=== PATIENT | female | born 1960 | race Caucasian/White ===

== ENCOUNTER 2019-11-20 07:07 | Day surgery (SDC) | payer OTHER ==
[~2019-11-20] VITALS: Ht 165.1 cm; Wt 94.3 kg
[2019-11-20] MEDS ORDERED: LEVOTHYROXINE175 MCG PO (07:24)
[2019-11-20] MEDS ORDERED: HYDROXYZINE HCL10 MG PO (07:25)
[2019-11-20] MEDS ORDERED: UNISOM50 MG PO (07:25)
--- NOTE | 2019-11-20 09:23 | NUR ---
11/20/19 0923 Africa Casey 0917 PT ARRIVED TO PACU ON 3L VIA NC, PT WAKES AND IS REORIENTED TO PACU AND FALLS BACK TO SLEEP. VSS. RESP EVEN AND UNLABORED. SMALL AMOUNT OF SNORING NOTED.
--- NOTE | 2019-11-20 22:30 | OR ---
[facility] [address], [place] [address] Signed DATE OF OPERATION: 11/20/2019 SURGEON: Miracle Valverde MD PREOPERATIVE DIAGNOSIS: Colon screening. POSTOPERATIVE DIAGNOSIS: Sigmoid diverticulosis. PROCEDURE: Total colonoscopy to cecum. ANESTHESIA: Intravenous sedation fentanyl 200 mcg and Versed 7 mg. INDICATION: This 59-year-old white woman is a patient Dr. Spencer Don. She is here for consideration of screening colonoscopy. She has never had colonoscopy in the past. She has no family history of colon cancer and no symptoms of bleeding, diarrhea or constipation. She understands the risks of colonoscopy including, but not limited to bleeding, infection, perforation, and other unforeseen complications. FINDINGS: The prep was good. Complete colonoscopy was undertaken to allow for visualization of the cecum and the ileocecal valve. Intubation of the cecum could not be undertaken despite efforts to do so. A long and poorly fixed colon is noted. There were numerous diverticula of the sigmoid colon. No sign of stricture. There were no polyps. No colitis. DESCRIPTION OF PROCEDURE: The patient was brought to the endoscopy suite and placed in lateral decubitus position, given intravenous sedation to the point of slurred speech and nystagmus. Digital rectal examination was normal. An Olympus video colonoscope was passed in the rectum and manipulated into the sigmoid where numerous diverticuli were seen. The scope was then advanced further ultimately to the right colon. Various maneuvers were required to advance further to allow for visualization of the cecum and ileocecal valve which was accomplished, but intubation of the cecum could not be undertaken despite various maneuvers including abdominal wall stabilization, body position change to supine and so on. Once the ileocecal valve and Electronically Signed By: MIRACLE VALVERDE MD 11/20/19 8070 PATIENT NAME: GALLITO VAZQUEZ V OPERATIVE REPORT DATE OF : 64 REPORT #: [id number] PHYSICIAN: MIRACLE VALVERDE MD PCP: SPENCER DON MD REPORT IS CONFIDENTIAL AND NOT TO BE RELEASED WITHOUT AUTHORIZATION [facility] [address], [place] [address] Signed cecum was visualized and photographed, the scope was then carefully withdrawn. Examination throughout showed no sign of polyps, only diverticular changes of the sigmoid. Retroflexed view of the rectum was normal. Scope was removed. The patient was taken to the recovery room in good condition. CONCLUDING DIAGNOSIS: Diverticulosis. No sign of polyp. PLAN: Recommend high-fiber diet. Repeat colonoscopy recommended in 10 years sooner if clinically indicated. She will return to the ongoing care of Dr. Don. MD JUSTINE Roberts/BETO /[id number] cc: Spencer Don MD Copies: SPENCER DON MD ~ Electronically Signed By: MIRACLE VALVERDE MD 11/20/19 2230 PATIENT NAME: GALLITO VAZQUEZ V OPERATIVE REPORT DATE OF : 64 REPORT #: [id number] PHYSICIAN: MIRACLE VALVERDE MD PCP: SPENCER DON MD REPORT IS CONFIDENTIAL AND NOT TO BE RELEASED WITHOUT AUTHORIZATION
== END 2019-11-20 10:07 | disposition home or self-care (01) ==
LOC: OPS 07:07 → DS 07:07 → OPS 08:30
PROVIDERS: Surgery
PROC: 0DJD8ZZ Inspection of Lower Intestinal Tract, Via Natural or Artificial Opening Endoscopic (ICD-10-PCS; principal; 2019-11-20 08:30)
DX: Z12.11 Encounter for screening for malignant neoplasm of colon (principal); K57.30 Diverticulosis of large intestine without perforation or abscess without bleeding; E03.9 Hypothyroidism, unspecified; E66.01 Morbid (severe) obesity due to excess calories; Z79.899 Other long term (current) drug therapy; Z90.49 Acquired absence of other specified parts of digestive tract; Z68.34 Body mass index [BMI] 34.0-34.9, adult
CPT/HCPCS: 99153; G0500; J2250; J3010

== ENCOUNTER 2021-01-23 15:48 | Inpatient (IN) | payer OTHER ==
[~2021-01-23] VITALS: Ht 165.1 cm; Wt 88.8 kg
[~2021-01-23 15:48] MED LIST: HYDROXYZINE HCL10 MG PO; LEVOTHYROXINE175 MCG PO; MOTRIN IB200 MG PO; MULTI-VITAMIN1 EACH PO; UNISOM50 MG PO
--- OUTSIDE RECORDS SUMMARY | 2021-01-23 15:50 | XMS ---
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 ELaxmi VISIT COUNT (12 MO.) 1 CHERELLE Thornton TOTAL 1 NOTE: Visits indicate total known visits. ED/UCC VISIT TRACKING (12 MO.) 01/23/2021 15:48 CHERELLE Pinedo OR TYPE: Emergency COMPLAINT: - FEVER,DIFFICULTY BREATHING INPATIENT VISIT TRACKING (12 MO.) No inpatient visits to display in this time frame [email or web address]
--- NOTE | 2021-01-23 21:10 | NUR ---
1999 PT ARRIVED TO FLOOR VIA STRETCHER. PT AMBULATES TO BED WITH SBA. PT IS ON 2L NC SPO2 90-92%. PT HAS AN INCREASED WOB, REPORTS PAIN "ALL OVER" AND SAYS SHE HAS "NEVER FELT SO BAD IN MY ENTIRE LIFE". PT APPEARS ANXIOUS AND OVERWHELMED WITH DIAGNOSIS/CONDITION. ORAL TEMP 102.1F, SPO2 STATED ABOVE, VSS OTHERWISE WNL. FEVER REPORTED TO DR OATES. 650MG PO TYLENOL IN ADDITION TO 400MG MOTRIN PRN ADMINISTERED FOR FEVER AND PAIN 02/07. IVF INFUSING PER ORDERS ALONG WITH POTASSIUM RIDER. DECADRON IV ADMINISTERED PER ORDERS. PT BEGINS TO CALM THEN ASKS TO USE BSC. O2 SAT DROPS TO 86% ON 2L WITH MOVEMENT. AFTER VOID, PT RETURNED TO BED AND O2 INCREASED TO 5L NC THEN TITRATED DOWN TO 3L NC PT RECOVERED. SPO2 94% ON 3L. BLOOD CULTURES ORDERED D/T FEVER DRAWN AT 2054 AND 2100 IN L AC AND L HAND. PT GIVEN CALL LIGHT, BSC PLACED NEAR BED, PT ORIENTED TO ROOM AND UPDATED ON POC. PT IS THANKFUL AND CALM AT THIS TIME. BEDSIDE TABLE WITHIN REACH. WILL CONTINUE TO MONITOR
--- NOTE | 2021-01-23 22:05 | NUR ---
CALL IN TO DR OATES. PT REPORTS BACK PAIN OF 01/07; HAVE TRIED ALL PRN MEDS AVAILABLE ALREADY. NEW ORDER FOR PO OXYCODONE 5-10MG Q 4H OBTAINED AND VERBALLY REPEATED AND VERIFIED.
--- NOTE | 2021-01-23 23:48 | NUR ---
IN ROOM TO START A 2ND IV TO ADMINISTER REMDESIVIR AND MAG ONE AFTER THE OTHER SINCE OTHER IV IS OCCUPIED WITH K RIDERS. LACTIC ACID KENRICK PER ORDER THRU NEW IV SITE. 5MG PO OXYCODONE ADMINISTERED FOR 7/10 BACK AND FOREHEAD PAIN. PT IS VISIBLY UNCOMFORTABLE D/T BACK PAIN. SCHEDULED MEDS ALSO ADMINISTERED AT THIS TIME. PT REMAINS ON 3L NC SPO2 92%. WILL CONTINUE TO MONITOR
--- NOTE | 2021-01-24 00:46 | NUR ---
IN ROOM TO HANG IV MEDS. PT RESTING IN BED, EYES CLOSED, EVEN UNLABORED BREATHING. SPO2 93% 3L NC, HR 67. NO OTHER NEEDS AT THIS TIME. CALL LIGHT WITHIN REACH
--- NOTE | 2021-01-24 07:00 | NUR ---
[facility] DOWN BETWEEN 0100 AND 0600. SEE PAPER CHART.
--- NOTE | 2021-01-24 08:28 | NUR ---
got breakfast order. gave warm washcloth to wash pt's face. whiteboard updated. pt reported nausea, notified RN Chary, gave emisis bag. IV pump was beeping, notified RN Chary. Call light was within reach. No further assistance needed at this time.
--- NOTE | 2021-01-24 08:45 | NUR ---
IN ROOM TO SEE PT. O2 SATS 87 ON 5L NC. PT HAD JUST TURNED OVER FROM PRONING. EDUCATED ON MEDS. ENCOURAGED PT TO US IS, STATES SHE DOES NOT WANT TO YET SHE JUST GOT DONE WITH A COUGHING "FIT". TRIED USING AN OXY MASK WITH SIDE LAYING. TURNED UP TO 10-12 WITH NO IMPROVEMENT. PT THEN ASKED TO GO BACK TO NASAL CANNULA. 6LNC SATS AT 87. UP TO BEDSIDE COMMODE AFTER COUGHING WITH DRIBBLING. U\\O QS. SATS QUICKLY DROPPED TO 77. PT NAUSEOUS AND COUGHING. BACK TO BED, SIDE LYING WITH 6LNC TOOK SEVERAL MINUTES TO RECOVER TO 87%. SPOKE WITH DR OATES AND MOVED TO CCU.
--- NOTE | 2021-01-24 09:10 | NUR ---
Pt transferred to CCU for decrease in condition. Will contact family for assessment questions.
--- NOTE | 2021-01-24 09:24 | NUR ---
PATIENT MOVED FROM 117 TO ROOM 127 AT 0900. VERBAL REPORT REC'D FROM LISA. PT ON 8 L NC WHEN THIS RN RESUMES CARE. PATIENT DOES NOT APPEAR SHORT OF BREATH AND IS LAYING ON RIGHT SIDE. PT STATES SHE NORMALLY SLEEPS ON HER STOMACH IS ABLE TO PRONE WELL. LUNG SOUNDS REVEAL FINE CRACKLES THROUGHOUT POSTERIOR LUNG LARIOS. DISCUSSED WITH PATIENT ATELECTASIS AND THE NEED FOR HER TO TAKE DEEPER BREATHS. PT HELPED TO USE IS, AND WITH 3 ATTEMPTS OF IS, ALL PRODUCED A SIGNIFICANT COUGH AND SPUTUM PRODUCTION. PT HELPED TO GET INTO PRONE POSITION AND IS NOW 92% ON 8L. RT UPDATED AND IS GOING INTO ROOM TO SET UP VAPOTHERM.
--- NOTE | 2021-01-24 10:15 | NUR ---
PATIENT GIVEN ZOFRAN FOR NAUSEA. RT IN ROOM AND SETS UP ON VAPOTHERM AT 30 L AND 100%. PATIENT ALSO GETS NEB TX FROM RT. PT STILL HAVING PRODUCTIVE SPUTUM WITH EACH COUGH. USES IS AGAIN X3 AND UP TO 1000 ML THIS TIME. BACK TO PRONE POSITION. SP02 IS 93% AT THIS TIME ON 100% 30 L. PT NOTES THAT EACH TIME SHE COUGHS, SHE IS VOIDING SOME WITHOUT ABILITY TO CONTROL THIS. PT HAS A PAD IN HER ATTENDS.
--- NOTE | 2021-01-24 11:54 | NUR ---
Attempted to contact Alyse Blackburn at work and on cell. Unable to contact, will try again later.
--- NOTE | 2021-01-24 13:55 | NUR ---
PATIENT CONTINUES TO REST ON RIGHT SIDE AND SP02 IS 95% AT THIS TIME. CONTINUE TO MONITOR.
--- NOTE | 2021-01-24 15:53 | NUR ---
IN PATIENT'S ROOM FOR ASSESSMENT, MEDS AND VITALS. PT HELPED TO GET UP FROM PRONE POSITION INTO SITTING UP. PT USES IS WITH BEST EFFORT BEING A LITTLE OVER 750 AT THIS TIME. NEW IV TO BE STARTED THAT ISN'T IN PATIENTS AC. IV REMDESEVIR INFUSING. PT STARTING TO COUGH UP BLOODY TINGED SPUTUM. EVERYTIME PATIENT COUGHS, SHE PRODUCES SOME SPUTUM. SPUTUM SAMPLE SENT EARLIER TODAY. PT REPORTS THAT HER BREATHING STILL FEELS LABORED BUT BETTER COMPARED TO YESTERDAY. PT NOW SITTING UP EATING SOME YOGURT AND BERRIES. PT STILL HAVING SOME INCONTINENCE WITH COUGHING WELL.
--- NOTE | 2021-01-24 16:47 | NUR ---
Pt lives in 1 story ranch with her spouse who is also covid +. 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 Pt denies needs for home. Discussed she may need o2 on dc, but this will be determined on dc. Her preference for DME is [facility] from [facility]. She states her adult son has been assisting them as she tested + a week ago. Denies financial issues to this time, but is unsure as both she and spouse are off work. We discussed FMLA and she staes she does have vacation time she can take. States she is just concerned as they have both been very ill. Plans on dc to home when cleared medically. She was contacted by the health dept. Will fu with pt as needed and prior to dc.
--- NOTE | 2021-01-24 17:36 | NUR ---
PATIENT UP TO BEDSIDE COMMODE AND JUST REC'D NEB TX FROM RT. PT REPORTS THAT SHE FEELS LIKE SHE CAN TAKE DEEPER BREATHS NOW. STILL HAVING PRODUCTION TO HER COUGH, BUT WAS NOW ABLE TO GET THE IS UP TO 1250 ML, WHICH IS THE HIGHEST FOR THE DAY FOR HER. PT NOW SIDE LAYING ON LEFT SIDE. NEW ATTENDS PLACED ON PATIENT. WHILE SIDE LYING, 92-95% OXYGEN NOTED. CONTINUE TO MONITOR.
--- NOTE | 2021-01-24 19:30 | NUR ---
[facility] ON. pt REQUESTED ASSISTED TO PRONE. UP TO VOID FIRST, BSC. pt DESATS WITH ANY MOVEMENT. CALL LIGHT WITHIN REACH.
--- NOTE | 2021-01-24 20:30 | NUR ---
pt BACK TO BED. MEDICATIONS GIVEN (SEE MAR). ASSESSMENT DONE. pt HAD LARGE VOID. PM CARES DONE. pt DID IS WITH LOTS OF COUGHING. REPORTED "I REALLY GOT A LOT UP" ASSISTED TO PRONE. RT IN ROOM DOING ASSESSMENT. DISCUSSED MOVING TO CPAP/BiPAP. pt PRONED IN BED. CALL LIGHT WITHIN REACH.
--- NOTE | 2021-01-24 22:00 | NUR ---
ROUNDED ON pt. RESTING IN BED ON RIGHT SIDE. REPORTED THAT BiPAP WAS MORE COMFORTABLE. BLOOD PRESSURE TAKEN. BACK ON BiPAP SATS INCREASED QUICKLY TO MID 90'S. CALL LIGHT WITHIN REACH.
--- NOTE | 2021-01-24 22:44 | NUR ---
CALL LIGHT ON. pt REQUESTED ROOM TEMPERATURE CHANGE, DONE. NO FURTHER REQUESTS AT THIS TIME. REMAINS ON BiPAP. CALL LIGHT WITHIN REACH.
--- NOTE | 2021-01-24 22:59 | NUR ---
ROUNDED ON pt. RESTING ON LEFT SIDE. RESPIRATIONS REGULAR. CALL LIGHT WITHIN REACH.
--- NOTE | 2021-01-24 23:52 | NUR ---
CALL LIGHT ON. pt OFF BiPAP AND ON VAPOTHERM 35/100% TO EAT. SITTING UP IN BED. CALL LIGHT WITHIN REACH.
--- NOTE | 2021-01-25 00:02 | NUR ---
02 SAT REMAINS IN 80'S. TITRATED TO 40/100% VAPOTHERM. pt DENIES SOB AT THIS TIME. SITTING UPRIGHT IN BED EATING. CALL LIGHT WITHIN REACH.
--- NOTE | 2021-01-25 01:07 | NUR ---
ANSWERED CALL LIGHT WITH LINDA RN. PATIENT WAS ONLY ABLE TO EAT 2 BITES OF HER SANDWICH, STATED IT "TAKES TOO MUCH ENERGY TO EAT" PATIENT HAS VOIDED 350 ML OF URINE IN BEDSIDE COMMODE. PATIENT WAS ABLE TO WIPE AND CLEAN SELF, PATIENT INSISTED SHE "DO MUCH I CAN ON MY OWN" PATIENT PLACED NEW PERIPAD TO ATTEND AND WAS ASSITED TO A STANDING POSITION, ATTENDS PULLED UP. PATIENT WAS ABLE TO GET BACK INTO STRETCHER WITH THIS RN STANDBY ASSIST TO HOLD CORDS AND OXYGEN TUBING. PATIENT ALSO GIVEN 650 MG TYLENOL FOR HER HEADACHE, PLACED BACK ON BIPAP. CALL LIGHT IN REACH.
--- NOTE | 2021-01-25 04:06 | NUR ---
IN ROOM TO ANSWER PATIENT'S CALL LIGHT. PATIENT REPORTS "SOMETHING FELL OFF" REFERRING TO THE TUBING CONNCETION TO BIPAP MASK. THIS RN ASSESSED THE BIPAP STILL FUNCTIONING, ERICK GARZA CALLED IN TO ROOM AND ALSO ASSESSES BIPAP CONNECTION AND ASSURED PATIENT. PATIENT STATES "I DON'T WANT TO THIS THING IS HELPING ME I DON'T WANT IT FALLING APART." ASKED PATIENT HOW HER HEADACHE IS SHE GIVES A "THUMBS UP" DENIES OTHER NEEDS AT THIS TIME. OBTAINED VITALS AND ASSESSMENT.
--- NOTE | 2021-01-25 05:37 | NUR ---
IN ROOM TO DRAW MORNING LABS AND GIVE MORNING MED, SEE EMAR. BLOOD COLLECTED FROM LEFT ARM AND SENT TO LAB. PATIENT CONTINUES SITTING UPRIGHT, BIPAP ON TO MAINTAIN SATS, DENIES OTHER NEEDS. CALL LIGHT IN REACH.
--- NOTE | 2021-01-25 07:36 | NUR ---
REPORT RECEIVED FROM NIGHTSHIFT RN, WILL CONTINUE PLAN OF CARE.
--- NOTE | 2021-01-25 08:30 | NUR ---
THIS RN IN TO ASSESS PT AND ADMINISTER SCHEDULED MEDICATIONS. PT SITTING UP IN BED AT THIS TIME ALERT AND ORIENTED X3 ON THE BIPAP AT 100% FIO2. SPO2 AT 95-100%. PT REPORTS NO SOB AT THIS TIME WHEN ASKED AND STATES HER BREATHING HAS IMPROVED. SCHEDULED MEDICATIONS ADMINISTERED (SEE MAR). PT VITALS TAKEN AND PT ASSESSED. LUNGS COARSE THROUGHOUT WITH SOME WHEEZES PRESENT. PT WAS PUT ON VAPOTHERM MOMENTARILY ON 40LPM AND 100% FIO2 TO DRINK WATER. AFTER SOME COUGHING PT DESATED AND MAINTAINED AN SPO2 OF 88%, PT PUT BACK ON THE BIPAP. RT ENTERED ROOM TO ASSESS PT, FIO2 ON BIPAP DECREASED TO 60% AT THIS TIME BY RT. PT REPORTS NO FURTHER NEEDS AT THIS TIME WHEN ASKED, BREAKFAST AT BEDSIDE FOR PT. PT LAYING IN BED ON BIPAP, RT IN ROOM, CALL LIGHT IN REACH, WILL CONTINUE PLAN OF CARE.
--- NOTE | 2021-01-25 09:30 | NUR ---
DOING WELL ON BIPAP.
--- NOTE | 2021-01-25 12:10 | NUR ---
UP TO COMMODE THEN TO PRONE POSITION. IS ON HIGH FLOW O2 AT 15 LITERS. UPON PRONING O2 SAT 77, AFTER RESTING APPROX 5 MIN O2 SAT TO 90.
--- NOTE | 2021-01-25 13:30 | NUR ---
SITTING UP IN BED ATTEMPING TO TAKE ENSURE.
--- NOTE | 2021-01-25 14:06 | NUR ---
BACK ON BIPAP.04/05 60% FIO2.
--- NOTE | 2021-01-25 15:16 | NUR ---
No change in plan for dc.
--- NOTE | 2021-01-25 16:45 | NUR ---
ASSESSMENT DONE. REMDESDIXON HUNG. O2 TO HIGH FLOW AT 15 L PER PT REQUEST NEED TO TRANSFER TO COMMODE. UPON SITTING AT BEDSIDE FOR APPROX 5 MIN PRIOR TO TRANSFER, O2 SAT TO 77, SAT NOT COMING UP WHILE SITTING AT BEDSIDE BIPAP REAPPILED AND FIO2 INCREASED TO 100%.
--- NOTE | 2021-01-25 17:00 | NUR ---
BACK TO BED WITH ASSIST. RESP THERAPY HERE TO WORK WITH PATIENT. COUGH MEDICATION GIVEN.
--- NOTE | 2021-01-25 18:03 | NUR ---
THIS RN IN TO SALINE LOCK PT. PT LAYING IN BED ON BIPAP AT THIS TIME AWAKE AND ALERT. IV REMDESEVIR COMPLETE, PT SALINE LOCKED. PT REPORTS NO FURTHER NEEDS AT THIS TIME WHEN ASKED. CALL LIGHT IN REACH, BED IN LOWEST POSITION, WILL CONTINUE PLAN OF CARE.
--- NOTE | 2021-01-25 19:30 | NUR ---
RECEIVED REPORT FROM [facility]. PATIENT APPEARS TO BE RESTING COMFORTABLY SITTING UPRIGHT ON STRETCHER ON BIPAP, PATIENT DENIES NEEDS AT THIS TIME. PATIENT INFORMED THIS NURSE WILL BE IN TO DO AN ASSESSMENT. CALL LIGHT IN REACH.
--- NOTE | 2021-01-25 21:08 | NUR ---
IN ROOM TO ADMINISTER PATIENT'S NIGHT TIME MEDS, SEE EMAR. PATIENT ASKED TO USE COMMODE TO VOID, INSISTS TO KEEP BIPAP ON. COMMODE PLACED TO PATIENT'S LEFT SIDE AND ASSISTED PATIENT WITH STANDBY ASSIST HOLDING LEADS AND BIPAP TUBING FOR PATIENT. SHE IS ABLE TO GET ON COMMODE BY SELF AND VOID AND WIPE BY SELF.PATIENT VOIDED 250 ML URINE. PATIENT REQUESTED TO HAVE BIPAP OFF MOMENTARILY TO COUGH, HAD 3-4 GOOD PRODUCTIVE COUGHS WITH "GRAYISH" SPUTUM AND TOSWALLOW HER NIGHT TIME MEDS. BIPAP PLACED BACK ON PATIENT AND SHE WAS ASSISTED BACK TO BED WITH BIPAP ON. MAINTAINING SATS IN THE 90'S. SHE DENIES ANY OTHR NEEDS, CALL LIGHT IN REACH.
--- NOTE | 2021-01-25 21:20 | NUR ---
NANCY FROM RT HAS BEEN IN TO DO RESPIRATORY ASSESSMENT. REPORTS FIO2 CHANGED TO 70 AT THIS TIME ON BIPAP.
--- NOTE | 2021-01-25 22:01 | NUR ---
PATIENT DOCUMENT CONTROL SUPERVISOR LIGHT, PATIENT DID NOT MEAN TO PUSH CALL LIGHT, DENIES NEEDING ANYTHING.
--- NOTE | 2021-01-25 23:00 | NUR ---
CHECKED ON PATIENT, SHE IS RESTING COMFORTABLY ON STRETCHER WITH BIPAP REMAINING ON PATIENT. PATIENT DENIES ANY NEEDS AT THIS TIME, DENIES PAIN. CALL LIGHT IN REACH. INFORMED PATIENT THIS RN WILL BE IN TO DO HER ASESSMENT AROUND MIDNIGHT.
--- NOTE | 2021-01-26 00:25 | NUR ---
IN ROOM TO DO ASSESSMENT. PATIENT APPEARED TO BE SLEEPING PRIOR TO RN COMING IN BUT SHE WAKES EASILY TO VOICE. REMAINS ON BIPAP FIO2 70% PER RT. PATIENT IS REPORTING "LITTLE BIT" OF NAUSEA DURING ASSESSMENT, DENIES ABDOMINAL PAIN, RPEORTING SHE JUST "DOESN'T FEEL LIKE EATING" PATIENT HAS BEEN SIPPING WATER. PATIENT DENIES ANY PAIN ANYWHERE AT THIS TIME. ZOFRAN 4MG IV GIVEN PER PRN ORDER FOR NAUSEA. PATIENT DENIES OTHER NEEDS. DENIES NEED TO VOID. CALL LIGHT IN REACH. HAS BEEN USING CONTROLS ON BED TO MOVE HEAD OF BED UP AND DOWN NEEDED. PATIENT REQUESTED WARM BLANKET AT THIS TIME STATES SHE IS "COLD" WARM BLANKET APPLIED.
--- NOTE | 2021-01-26 01:33 | NUR ---
PATIENT APPEARS TO BE SLEEPING, BIPAP ON MAINTAING SATS IN THE 90'S CALL LIGHT IN REACH.
--- NOTE | 2021-01-26 02:50 | NUR ---
CHECKED ON PATIENT. SHE IS REPORTING THAT SHE IS HAVING "BURNING" IN HER STOMACH AND IS ASKING FOR "SOMETHING FOR ACID REFLUX" INITIATED MEDICATION NIO FOR MAALOX CONFIRMED WITH LINDA LEY
--- NOTE | 2021-01-26 03:14 | NUR ---
THIS RN WAS IN ROOM TO MEDICATE PATIENT WITH MAALOX, PATIENT ASKS IF SHE CAN "TAKE A BREAK" FROM THE BIPAP "I NEED TO GIVE MY FACE A REST. INSTRUCTED PATIENT WE CAN PUT HER ON THE HIGH FLOW O2 PER NASAL CANNULA FOR A LITTLE BIT, HER SATS ONLY STAY IN THE HIGH 80'S RR WNL.
--- NOTE | 2021-01-26 03:36 | NUR ---
THIS RN IN ROOM TO PUT BIPAP BACK ON PATIENT. PATIENT INFORMED THAT HER SATS ON THE HIGH FLOW O2 WERE ONLY STAYING IN THE HIGH 80'S AND EXPLAINED TO HER THAT HER OXYGEN SATURATION IS MAINTAINED WITH BIPAP, PATIENT VERBALIZED UNDERSTANDING. PATIENT ALSO NEEDED TO VOID SO ASSISTED PATIENT TO BEDSIDE COMMODE BY HOLDING TUBES AND WIRES FOR PATIENT SHE WAS ABLE TO STAND UP AND TRANSFER SELF TO BEDSIDE COMMODE AND WIPE SELF. ASSISTED PATIENT BACK TO THE BED. SHE ALSO INFORMED THIS RN SHE USED HER INCENTIVE SPIROMETER 3 TIMES WHILE OFF BIPAP AND COUGHED SEVERAL TIMES AND ABLE TO COUGH "GRAYISH" SPUTUM. WILL BE BACK IN TO OBTAIN VITALS AND ASSESSMENT
--- NOTE | 2021-01-26 04:20 | NUR ---
IN ROOM TO CHECK ON PATIENT AND DO OBTAIN VITALS AND ASSESSMENT. PATIENT REMAINS ON BIPAP PATIENT DECLINES OFFER FOR WARM BLANKET.CALL LIGHT IN REACH. FIO2 70% ON BIPAP.
--- NOTE | 2021-01-26 05:35 | NUR ---
IN ROOM TO CHECK ON PATIENT AND TO GIVE MORNING MED, SEE EMAR. MORNING LAB DRAW BEING COMPLETED. PATIENT GIVEN WATER TO DRINK AND BRIEFLY TAKEN OFF BIPAP TO SWALLOW PILL. DENIES ANY PAIN AT THIS TIME. DECLINES OFFER FOR WARM BLANKET. DINA LIGHT IN REACH.
--- NOTE | 2021-01-26 06:31 | NUR ---
ANSWERED PATIENT'S CALL LIGHT. SHE IS REQUESTING A WET WASHCLOTH STATES SHE FEELS "HOT" PATIENT REMAINS ON BIPAP, HAD PATIENT TAKE SOME MORE SIPS OF WATER, HER NAUSEA HAS IMPROVED. ENCOURAGED PATIENT TO STAY HYDRATED ESPECIALLY BEING ON BIPAP AND SHE STATES SHE "FEELS LIKE I AM DRYING OUT" PATIENT CONTINUES TO DENY PAIN, DENIES NEEDING TO VOID. CALL LIGHT IN REACH
--- NOTE | 2021-01-26 12:00 | NUR ---
No change in plan for dc, remains on high flow 02.
--- NOTE | 2021-01-26 18:00 | NUR ---
PT HAS REMAINED ALERT AND ORIENTED X4 ALL SHIFT. PT IS A ONE PERSON ASSIST UP TO THE BSC MOSTLY FOR CORD MANAGEMENT. PT HAS ATTEMPTED TO EAT BITES AT BOTH BREAKFAST AND LUNCH, REFUSES DINNER. PT HAS BEEN REQUESTING TO STAY UP ON COUGH MEDICINE AND NAUSEA MEDS. PT HAS ALSO REPORTED INCREASED GENERALIZED ACHES AND PAIN, PRN PAIN MEDICATION GIVEN REGULARLY. ALL LINENS CHANGED ON BED, PT REFUSED BED BATH TODAY, HOWEVER HAS BRUSHED HER TEETH AND WASHED HER HANDS AND FACE. PT ASKS GOOD QUESTIONS ABOUT HER PLAN OF CARE, AND SEEMS TO UNDERSTAND. PT HAS BEEN ON BIPAP FOR MOST OF THE DAY AND TAKES ONE HOUR BREAKS AT MEAL TIMES. PT USES CALL LIGHT APPROPRIATLY. ALL OTHER VITALS HAVE BEEN WNL, EXCEPT FOR O2 SATS 87-89% WHILE ON 15L O2 HIGHFLOW NC. BILAT IV SITES ARE INTACT ALL SHIFT, FLUSH EASILY, NO REDNESS OR SWELLING NOTED, PT DENIES PAIN AT EITHER SITE. UPDATED PT'S SISTER MARLINE ON THE PHONE PER PT'S WISHES. PT REPORTS "I FEEL A LITTLE STRONGER TODAY THAN WHEN I FIRST CAME IN".
--- NOTE | 2021-01-26 19:09 | NUR ---
PT HAS BEEN ALERT AND ORIENTED X4 ALL SHIFT, COOPERATIVE AND POLITE. PT WAS IN BED UNTIL ABOUT 1530, AND THEN HAS BEEN UP IN THE CHAIR FOR THE REST OF THE SHIFT. ALL LINENS CHANGED, PARTIAL BEDBATH DONE, PT BRUSHES OWN TEETH. PT APPITITE HAS INCREASED THROUGH THE SHIFT, GOOD PO INTAKE OF FLUIDS. BILAT IV SITES HAVE REMAINED INTACT, NO PAIN WITH FLUSH, NO REDNESS OR SWELLING NOTED, FLUIDS AND FLUSHES INFUSE EASILY. PT HAS BEEN PRONING MULTIPLE TIMES ON HER BELLY AND ON HER SIDES WHILE IN BED. PT GIVEN GIVEN PRN COUGHT MEDS AND ANTIEMETICS ALL SHIFT PER PT REQUEST. PT ABLE TO BE TITRATED DOWN ON THE VAPOTHERM FROM 40L/100% TO 40L/70-80%. TRIAL WITH BIPAP DONE PER REQUEST (PLEASE REFER TO RT NOTES). VITALS HAVE BEEN WNL ALL SIFT.
--- NOTE | 2021-01-26 20:00 | NUR ---
ASSISTED PATIENT TO THE BSC. BIPAP WITH 70% Fi02 LEFT IN PLACE. PATIENT TRANSFERED EASILY. RETURNED TO BED. O2 SAT 67% RR 32. PATIENT FEELS FLUSHED AND HOT. ICE PACK AND COOL WASH CLOTH PROVIDED. TITRATED TO 100% Fi02 ON BIPAP. PATIENT RECOVERED AFTER SEVERAL MINS. PATIENT REPORTS STOMACH ACID/INDIGESTION. MAALOX PROVIDED. DISCUSSED WITH MD, MARIELY ORDERED. PATIENT REPORTS GENERAL PAIN 4/10. LUNG SOUNDS ARE DIM THORUGHOUT. DISCUSSED NEB TREATMENT, PATIENT REPORTS THE LAST ONE SHE HAD SEEMED TO HELP. RT CALLED FOR IN-LINE TREATMENT. PATIENT RESTING HOB AT 45 DEGREES. CALL LIGHT IN REACH.
--- NOTE | 2021-01-26 22:15 | NUR ---
EVENING MEDS PROVIDED. PATIENT ON 15L HIGH FLOW O2 FOR PO MEDS, DESAT TO 84% WITH RR28. PATIENT REPORTS FEELING THAT HER BREATHING IS "GOOD" RIGHT NOW. DISCUSSED OPTION FOR AL PLACEMENT. PATIENT IS IN AGREEMENT WITH THIS TREATMENT PLAN. BIPAP BACK IN PLACE. TITRATED TO 100%. PATIENT TOLERATED AL PLACEMENT WELL. GOOD URINE OUTPUT. TITRATED BACK TO 90% Fi02. BIPAP PRESSURE 12/8.
--- NOTE | 2021-01-27 00:45 | NUR ---
PATIENT SLEEPING. WOKE WHEN NURSE WAS IN THE ROOM. AL DRAINING WELL. BIPAP REMOVED BRIEFLY FOR PATIENT TO DRINK WATER. PATIENT REPORTS SLEEPING WELL AND HAVING NO DISCOMFORT FROM THE AL. PATIENT STATES "I'M REALLY HAPPY I HAVE THAT NOW". PATIENT DENIED FURTHER NEEDS. BIPAP IN PLACE. VS STABLE. O2 SAT 94% ON 90% Fi02.
--- NOTE | 2021-01-27 04:53 | NUR ---
PATIENT AWAKE WHEN RN ENTERS THE ROOM. TOLERATING BIPAP WELL. RR 24-26, O2 SAT 96% ON 90% Fi02 PRESSURE 12/8. PATIENT REPORTS FEELING RESTED. DENIED PAIN OR GI UPSET. AL HAS GOOD URINE OUTPUT. LABS DRAWN FROM IV IN LEFT AC SITE. PATIENT DENIED ANY NEEDS AT THIS TIME. CALL LIGHT IN REACH.
--- NOTE | 2021-01-27 06:12 | NUR ---
assisted patient to roll to left side from her right. RR 22-24, OR SAT 99% AFTER ACTIVITY. TITRATED Fi02 TO 80%. AL EMPTIED. LABS REDRAWN, 5ML WASTED OUT OF RIGHT AC. PATIENT DENIED ANY NEEDS. CALL LIGHT IN REACH.
--- NOTE | 2021-01-27 07:55 | NUR ---
PT SLEEPING SOUNDLY AT THIS TIME, VITALS WNL, BIPAP IN PLACE. FULL REPORT RECIEVED FROM SHARA LEY.
--- NOTE | 2021-01-27 09:05 | NUR ---
PT IS ALERT AND ORIENTED X4 AT THIS TIME. PT REPORTS ANXIETY WITH DIAGNOSIS AND LACK OF POSITIVE ENCOURAGEMENT FROM FISHING BOAT MATE RT. PT NOT ARNEL BEING OFF THE BIPAP WELL SHE WAS YESTERDAY. BOTH IV SITES ARE INTACT, NO REDNESS OR SWELLING NOTED, PT DENIES PAIN WITH FLUSH. PT IS WILLING TO DRINK ENSURE FOR BREAKFAST. PT GIVEN WARM WASHCLOTH TO WASH FACE AND HANDS. FRESH ICE WATER TAKEN IN TO PT. PT PLACED BACK ON TO BIPAP AT 0930. ALL OTHER VITALS ARE WNL.
--- NOTE | 2021-01-27 12:36 | NUR ---
PT IS COUGHING AND EXPECTORATING LARGE AMOUNTS OF THICK WILKINS PHLEM. PT ASSISTED TO TAKE OF BIPAP AND PLACED ON 15L HIGHFLOW NC. PT ALSO HAS ORDERED ENSURE FOR LUNCH AND IS ABLE TO ARNEL SIPS OF THIS WELL. PT VITALS ARE WNL, HOWEVER NOTED THAT PT IS NOT ABLE TO KEEP O2 SATURATION AT 88% WITH NC, SHE IS AT 83-87%. CALLED RT TO GIVE A NEB TREATMENT. PT IS ABLE TO BRUSH OWN TEETH WHEN GIVEN SUPPLIES. PT HAS CALL LIGHT WITHIN REACH.
--- NOTE | 2021-01-27 16:23 | NUR ---
NO CHANGES OR UPDATE ON DISCHARGE PLAN. PATIENT REMAINS TO ILL TO LEAVE ICU.
--- NOTE | 2021-01-27 17:00 | NUR ---
PT IS ALERT AND ORIENTED X4. OFF BIPAP FOR A REST AND TO TAKE PO MEDS AND ON 15L HIGHFLOW NC. WITH THIS METHOD OF OXYGEN DELIVERY PT IS ONLY ABLE TO SAT 80-85%. BECAUSE OF THIS BREAKS ARE SHORTER. PT GIVEN PO PAIN MEDS FOR GENERALIZED/BACK/RIB PAIN OF 6/10. BILAT IV SITES ARE INTACT, NO REDNESS OR SWELLING NOTED, FLUSHES AND FLUIDS INFUSE EASILY. PT REQUESTS AND IS GIVEN ZOFRAN FOR SLIGHT NAUSEA. FULL BEDBATH DONE INCLUDING AL CATH CARES, LINENS CHANGED. PT'S SKIN IS INTACT.
--- NOTE | 2021-01-27 19:59 | NUR ---
Patient o2 sats 86% on bipap with 80% Fi02. instructed to have patient turn to right side. After several mins patient is 88%. RR 27. Titrated Fi02 to 90%. patient reports being comfortable and denies any needs. call light in reach.
--- NOTE | 2021-01-27 21:00 | NUR ---
PATIENT OFF BIPAP TO DRINK WATER AND TAKE MEDS. PATIENT REPORTS HEADACHE AND BACK PAIN, PRN MEDS PROVIDED. COUGH MEDS GIVE PER REQUEST. PATIENT HAS HAD SMALL AMOUNT OF SPUTUM. ACCU CHECK AND SSI PER ORDER. AL HAS GOOD URINE OUTPUT. ROOM CLEAN. VS STABLE. PATIENT DENIED FURTHER NEEDS. CALL LIGHT IN REACH.
--- NOTE | 2021-01-27 23:00 | NUR ---
PATIENT REQUEST ASSISTANCE TO REMOVE BIPAP TO BLOW HER NOSE. PATIENT HAS BEEN AT 88-90% ON BIPAP 12/8, 90% Fi02. INCREASED PRESSURE TO 16/10 WITH 90% Fi02. WILL CONTINUE TO MONITOR.
--- NOTE | 2021-01-28 01:00 | NUR ---
PATIENT'S OR SATS HAVE BEEN MID 90'S ON CURRENT SETTINGS. RR 24-26. PATIENT APEARS COMFORTABLE LAYINGON LEFT SIDE. AL DRAINING WELL. TEMP WNL. PATIENT DENIED NEEDS. CALL LIGHT IN REACH.
--- NOTE | 2021-01-28 05:00 | NUR ---
ASSISTED PATIENT TO PRONE. ABLE TO TITRATE TO 70% Fi02. PATIENT HAD ASKED FOR PRN MEDS AND THEN CHANGED HER MIND. NEB TREATMENT PROVIDED IN-LINE. AL EMPTIED. PATIENT REPORTS BEING COMFORTABLE.
--- NOTE | 2021-01-28 05:41 | NUR ---
PATIENT CALLED. LAKE RN IN ROOM TO ASSIST PATIENT. BIPAP MASK UNCOMFORTABLE. SWITCHED TO 15L NC AND PROVIDED PRN MEDS. PATIENT CONTINUES TO PRONE. OR SATS 88-91%.
--- NOTE | 2021-01-28 06:05 | NUR ---
PATIENT UNABLE TO KEEP O2 SATS ABOVE 88% ON 15L NC IN PRONE POSITION. PATIENT ASSISTED TO LAYING MORE ON HER RIGHT SIDE WITH BIPAP IN PLACE. ABLE TO TITRATE TO 70% Fi02 AND MAINTAIN GREATER THAN 90%. PATIENT REPORTS BEING COMFORTABLE.
--- NOTE | 2021-01-28 14:00 | NUR ---
pts oxygen saturations decreased into the 80's and unable to get back up on vapotherm on 40 l and 100 percent FI02. pt now back on bipap, in left side lying position. saturations currently 100% on bipap.
--- NOTE | 2021-01-28 16:18 | NUR ---
in room to complete assessment. pt taken off bipap at this time and placed on vapotherm at 40L and 100% FIO2. saturations in the mid 80s. pt continues to have a constant productive cough, with greyish colored sputum. lung sounds are diminished throughout. given prn cough suppressant medications (see emar). Provided pt education on oxygen therapy, all questions answered. call light within reach, will continue to closely monitor.
--- NOTE | 2021-01-28 19:34 | NUR ---
PT HAS BEEN ALERT AND ORIENTED X4 ALL SHIFT. PT DOES TRY TO SLEEP MUCH POSSIBLE. FOR MOST OF THE SHIFT PT HAS REQUIRED PRN PAIN MEDS, OXY, TYLENOL, AND MOTRIN. ALSO GIVEN COUGH SUPPRESANT REGULARLY. PT UO IS QS, AL IS INTACT, PT DENIES PAIN WITH AL. PT VITALS HAVE BEEN WNL EXCEPT FOR O2 SATS. THIS RN AND RT HAVE BEEN TITRATING O2 THERAPY MULTIPLE TIMES TO ATTAIN ACCEPTABLE O2 SATS. PT HAS HAD PHONE CALLS FROM FAMILY WITH FULL UPDATES GIVEN. NEW SPUTEM SAMPLE SENT, IV ABX STARTED TODAY. PT ABLE TO ARNEL MORE FOOD AT DINNER THAN THE REST OF THE SHIFT. PT CALLS APPROPRIATLY. OFFERED PO FLUIDS MULTIPLE TIMES TODAY WHEN BIPAP IS OFF, PT ON VAPOTHERM WHEN OFF BIPAP.
--- NOTE | 2021-01-28 20:22 | NUR ---
ASSISTED PATIENT TO MOVE TO PRONE POSITION WITH VAPOTHERM 40L 100% Fi02. PATIENT TOELRATING WELL. HAIR BRUSHED AND SHOWER CAP WASH DONE. PATIENT REPORTS FEELING WELL AND IS HOPEFUL TO STAY IN THIS POSITION TONIGHT. CALL LIGHT IN REACH.
--- NOTE | 2021-01-28 21:50 | NUR ---
PATIENT CONTINUES TO PRONE. O2 SAT FLUCTUATES FROM 85% TO 90% WITH VAPOTHERM AT 40L 100% Fi02. PATIENT CONTINUES TO ENJOY THIS POSITION AND FEELS THAT HER BREATHING IS EASIER. NEB PROVIDED AND PRN COUGH MEDS. SCHEDULED MEDS. WHEN PATIENT IS READY FOR SLEEP WE WILL TRANSITION TO HER SIDE AND PLACE BIPAP. CALL LIGHT IN REACH.
--- NOTE | 2021-01-28 23:25 | NUR ---
PATIENT CONTINUES TO PRONE. OR SATS 88-91% ON VAPOTHERM 40L 100% Fi02. ALLOWED PATIENT TO SLEEP. CALL LIGHT IN REACH.
--- NOTE | 2021-01-29 00:25 | NUR ---
PATIENT SWITCHED TO BIPAP AT 90% Fi02. NEB TREATMENT PROVIDED IN-LINE. PATIENT TURNED TO RIGHT SIDE. REPORTS BEING COMFORTABLE. VS STABLE. CALL LIGHT IN REACH.
--- NOTE | 2021-01-29 03:10 | NUR ---
PATIENT O2 SATS 95-97% ON BIPAP AT 90% Fi02. THIS RN ENTERED ROOM TO TITRATE Fi02 AND PATIENT REQUESTED TO TURN TO HER STOMACH IN PRONE POSITION AND WEAR VAPOTHERM. ASSISTED PATIENT WITH REPOSITIONING. VAPOTHERM 40L 100% Fi02. PATIENT DESAT WITH ACTIVITY BUT AFTER SEVERAL MINS WAS MAINTAINING O2 SATS 90%
--- NOTE | 2021-01-29 06:00 | NUR ---
PATIENT RESTING IN PRONE POSIITON. TOLERATING VAPOTHERMA 40L 100% Fi02 WITH O2 SATS 88-92%. RR 24-26. PATIENT REPORTS FEELING BETTER THIS MORNING BREATHING THAN SHE HAS. HOWEVER, SHE FEELS THAT SHE "TWEEKED" HER LOWER BACK TRYING TO REPOSITION. PRN PAIN MEDS PROVIDED. LABS DRAWN FROM LEFT AC SITE, 5ML WASTE. SITE FLUSHES WELL. UNABLE TO FIND ADDITIONAL IV ACCESS FOR ROUTINE PLACEMENT CHANGE. AL EMPTIED. VS STABLE.
--- NOTE | 2021-01-29 07:30 | NUR ---
full report recieved from Carol LEY, all questions answered.
--- NOTE | 2021-01-29 08:32 | NUR ---
pt asleep when this rn enters the room, wakes easily to touch. pt is alert and oriented x4. both iv sites are intact, flush easily, no redness or swelling noted, pt denies pain at either site. guadalupe cath is in place, clear berenice urine is draining. pt breakfast served to pt, she is able to sit up in bed to eat, pt is on the Vapotherm with O2 sats in the low 80's. pt reports increased back pain during glacing machine tender due to back strain. 400 mg po motrin given. pt able to swallow all pills easily. pt brought fresh ice water and a ice pack. vitals are wnl.
--- NOTE | 2021-01-29 09:10 | NUR ---
pt is back on to bipap after eating and taking meds.
--- NOTE | 2021-01-29 11:07 | NUR ---
IV ABX FINISHED, IV SITE SALINE LOCKED, PT DENIES PAIN WITH FLUSH. PT DENIES NAUSEA AND SOB AT THIS TIME. PT REPORTS BACK PAIN IS 5/10, HOWEVER PAIN MEDS GIVEN AT 1040.
--- NOTE | 2021-01-29 13:15 | NUR ---
PT IS SLEEPING AT THIS TIME, DEFERING ASSESSMENT UNTIL 1400.
--- NOTE | 2021-01-29 15:45 | NUR ---
1450 - WENT INTO PT ROOM, PT AWAKE AND ALERT X4, RESPONDS APPROPRIATLY TO QUESTIONS. PT TAKEN OFF BIPAP IN ORDER TO TAKE PO MEDS. 1452 - PT HAS COUGHING FIT AND WITHIN 30 SECONDS BECOMES NON-RESPONSIVE TO TOUCH OR VERBAL STIMULI. PT WOB HAS INCREASED WITH NASAL FLARING, PT LIPS ARE CLOSED AND SHE IS COUGHING AND BLOWING BUBBLES OUT OF HER LIPS. CALLED FOR HELP, PT PLACED ON OXYMASK WITH 15L FLOW DUE TO CONCERN THAT PT WAS GOING TO VOMIT. THIS APPEARS TO BE A SIEZURE, PT LEGS AND ARMS ARE RIDGED, EYES ARE FIXED AND GAZING UP AND TO THE LEFT. 1454 - RAP[facility] RESPONSE CALLED, RT SUCTIONED PT MOUTH AND PLACED HER BACK ON BIPAP. 1455 - PT HAS STOPPED WITH SIEZURE LIKE ACTIVITY, BG CHECKED AND FOUND TO BE IN THE 300'S 1456 - PT IS NOW AWAKE AND ALERT AND ABLE TO RESPOND TO QUESTIONS NORMALLY, PT HAS NO MEMORY OF SIEZURE LIKE ACTIVITY. PT REPOSITIED UP HIGH ON HER RT SIDE. 1510 - NEW IV STARTED, DENIES ANY LABS TO BE DRAWN AT THIS TIME. [facility] RESPONSE TEAM IS IN THE ROOM. 1515 - 7 UNITS OF INSULIN GIVEN PT REMAINS ALERT AND ORIENTED X4, RT ABLE TO TITRATE BIPAP SETTINGS DOWN FAIRLY QUICKLY. 1600 - THIS RN IS THE LAST OF THE CARE TEAM TO LEAVE THE ROOM, PT HAS BIPAP IN PLACE AND IS LAYING HIGH ON HER LEFT SIDE, SHE REMAINS ALERT AND ORIENTED X4.
--- NOTE | 2021-01-29 17:57 | NUR ---
PT TITRATED UP TO 90% FIO2 DUE TO O2 SATS 85-87% WHILE SLEEPING.
--- NOTE | 2021-01-29 18:00 | NUR ---
TITRATED PT BIPAP SETTINGS UP - 12/8 AT 90%. PT REMAINS ASLEEP.
--- NOTE | 2021-01-29 19:55 | NUR ---
SHIFT REPORT RECEIVED. PATIENT ON BIPAP AT 75% Fi02. POSITIONED ON HER HIGH LEFT SIDE. O2 SATS 91%, RR 22. CALL LIGHT IN REACH.
--- NOTE | 2021-01-29 22:25 | NUR ---
2049 PATIENT APPEARS TO BE SLEEPING. RR 28. 92% ON BIPAP AT 90% Fi02. MUCOMYST GIVEN IN-LINE WITH BIPAP. PATIENT WOKE WITH STAFF IN ROOM. HAD TO BE REORIENTED TO TIME. PATIENT THOUGHT IT WAS MORNING. PATIENT COUHGING AND HAS SPUTUM. BIPAP REMOVED. VAPOTHERM 40L 100% Fi02 PLACED. PATIENT COUGHED UP MULTIPLE SECREATIONS. PRN COUGH MEDS GIVEN AND WATER. PATIENT WANTS TO STAY ON VAPOTHERM. ASSISTED TO PRONE POSITION. NEB TREATMENT GIVEN. PRN OXY AND MOTRIN FOR 5/10 BACK PAIN AND GENERAL BODY ACHES. 2129 PATIENT DESAT TO 68% ON VAPOTHERM WITH MOVEMENT TO PRONE POSITION. RN IN ROOM FOR SUPPORT. PATIENT FOCUSING ON HER BREATHING AND RESTING. PATIENT SATS IMPROVED TO 88% AFTER 15 MINS. DISCUSSED OPTIONS WITH PATIENT. AGREED TO LET PATIENT REST LIKE THIS FOR 15 MORE MINS AND WE WOULD RE EVELUATE. 2144 PATIENT 88-91% ON VAPOTHERM 40L 100% Fi02. RR 16. 0 PATIENT AT 92% ON SAME SETTINGS. 2219 PATIENT 99% ON VAPOTHERM AT CURRENT RESTTINGS. RR 18.
--- NOTE | 2021-01-30 00:16 | NUR ---
PATIENT CONTINUES TO HAVE O2 SATS IN THE LOW TO MID 90S ON VAPOTHERM 40L 100% Fi02. PATIENT WOKE EASILY TO TOUCH. REPORTS BEING COMFORTABLE AND DENIES NEEDS. PATIENT IN PRONE POSITION. HR 70'S, 02 94% AND RR 18. ALLOWED PATIENT TO REST.
--- NOTE | 2021-01-30 00:55 | NUR ---
UPDATE PROVIDED TO DR. LAM
--- NOTE | 2021-01-30 01:48 | NUR ---
PATIENT HAD A COUGHING FIT AND DESAT. KRYSTA RN INTO ROOM. PATIENT ABLE TO RECOVER SOMEWHAT. HOWEVER CONTINUED COUGHING AND DRINKING WATER PATIENT O2 SATS IN THE 60'S ON VAPOTHERM 40L 100% Fi02. THIS RN INTO ROOM. PATIENT TRANSITIONED TO 100% Fi02 ON BIPAP. TURNED TO RIGHT SIDE AND NEB GIVEN. PATIENT QUICKLY RECOVERED TO O2 SATS IN HIGH 90'S. TITRATED TO 80% Fi02. PATIENT CONTINUES TO BE IN THE HIGH 90S. WILL CONTINUE TO MONITOR.
--- NOTE | 2021-01-30 02:02 | NUR ---
PATIENT TITRATED TO 70% Fi02 BIPAP, 02 SAT 96% AFTER 10 MINS.
--- NOTE | 2021-01-30 03:33 | NUR ---
PATIENT REPORTS INCREASED BACK PAIN. ASSISTED TO LAY ON HER BACK. HOB ELEVATED. PRN TYLENOL AND OXY PROVIDED. PATIENT POSITIONED FOR COMFORT. AL HAD LEAKED ON THE GROUND. THIS WAS CLEAN AND ROOM MOPPED. PATIENT HAS GOOD URINE OUTPUT. VS STABLE. TITRATED TO 100% Fi02 FOR MOVEMENT AND DESATING WHILE TAKING PILLS. TITRATED BACK TO 80% AND PATIENT IS 94%. CALL LIGHT IN REACH.
--- NOTE | 2021-01-30 09:02 | NUR ---
EPAP INCREASED FOR OXYGENATION FIO2 DECREASED TOLERATED TO 80%.
--- NOTE | 2021-01-30 09:10 | NUR ---
THIS RN IN TO ASSESS PT AND ADMINISTER SCHEDULED MEDICATIONS. PT ON BIPAP AT THIS TIME, FIO2 AT 100%. PT DENIES HAVING ANY SOB AT THIS TIME. SCHEDULED MEDICATIONS ADMINISTERED AT THIS TIME. 5 UNITS OF INSULIN GIVEN PER SLIDING SCALE. PT PLACED MOMENTARILY ON VAPOTHERM AT 40LPM AND 100% FIO2 TO TAKE PO MEDS. PT BEGAN TO DESATURATE TO THE 80-82% RANGE. PT DENIED SHORTNESS OF BREATH, LIGHTHEADEDNESS. WAS PLACED BACK ON THE BIPAP TO INCREASE SPO2 LEVELS. RT ENTERED ROOM AT THIS TIME TO CHANGE BIPAP SETTINGS AND ADMINISTER TREATMENT (SEE MAR). BIPAP FIO2 NOW AT 80%, SPO2 NOW MAINTAINING AT 90-91%. PT DENIES HAVING SOB OR DYSPNEA. LUNGS ARE CLEAR/TUBULAR IN SOUND THROUGHOUT WHEN ASUCULTATED. PT REPORTS NO FURTHER NEEDS AT THIS TIME AND IS ON THE BIPAP, IV ABX INFUSING ORDERED, WILL CONTINUE PLAN OF CARE. CALL LIGHT IN REACH, BED IN LOWEST POSITION.
--- NOTE | 2021-01-30 11:00 | NUR ---
THIS RN IN TO CHECK ON PT. PT LAYING IN BED AWAKE AND ALERT AT THIS TIME ON THE BIPAP. PT HAD COMPLAINTS OF LOWER BACK PAIN AT THIS TIME 11/07, PRN OXYCODONE ADMINISTERED AT THIS TIME. PT WANTED TO GET INTO A PRONE POSITION AT THIS TIME. BIPAP LEFT ON AND TURNED UP FROM 80% TO 100%, PT THEN REPOSITIONED HERSELF INTO A PRONE POSITION ON THE BED, SPO2 NOTED TO DECREASE TO THE UPPER 80%. PT WENT UP TO ABOUT 94% BEFORE BEING TITRATED TO 80% FIO2. PT WAS THEN PUT ON VAPOTHERM PER HER REQUEST BUT WAS PLACED BACK ON THE BIPAP AFTER DRINKING WATER PT DESATED TO THE UPPER 70-80% AND DID NOT RECOVER. PT NOW ON BIPAP AT 80% FIO2 SPO2 IN THE 92-94%. PT DENIED FEELING SOB OR DYSNPEIC THROUGHOUT THE EVENT. PT AT THIS TIME REPORTED FEELING ANXIOUS, PT QUESTIONS ANSWERED AT THIS TIME TO HELP WITH ANXIETY. PT REPORTS NO FURTHER NEEDS AT THIS TIME, AND IS NOW PRONE ON THE BIPAP. WILL CONTINU PLAN OF CARE. CALL LIGHT IN REACH, BED IN LOWEST POSITION.
--- NOTE | 2021-01-30 11:05 | NUR ---
DR. LAM NOTIFIED THAT PT. WAS HAVING FEELINGS OF ANXIETY, NEW ORDERS TO BE PLACED, WILL CONTINUE PLAN OF CARE.
--- NOTE | 2021-01-30 12:55 | NUR ---
SETTING CHANGED TO IMPROVE OXYGENATION ARNEL WELL FIO2 DECREASED INCREMENTALLY TO 65%.
--- NOTE | 2021-01-30 13:10 | NUR ---
THIS RN IN TO ASSESS PT AND ADMINISTER SCHEDULED MEDICATION. PT STILL LAYING IN PRONE POSITION ON BED AWAKE AND ALERT ON THE BIPAP. RT IN ROOM WITH PT WELL. BIPAP CHANGED TO CPAP MODE AT 65% FIO2, PRN ALBUTEROL ADMINISTERED BY RT. THIS RN ADMINISTERED PRN MOTRIN FOR LOWER BACK PAIN AND PRN ATIVAN FOR ANXIETY. PT ALSO GIVEN 5 UNITS OF INSULIN PER SLIDING SCALE. WHILE GIVING PO MOTRIN PT DESATTED TO THE MID 70% BUT QUICKLY WENT BACK TO 90% WHEN PLACED BACK ON CPAP. PT DENIED SOB THROUGHOUT THIS EVENT. PT ASSESSED AFTERWARDS. PT REPORTS NO FURTHER NEEDS AT THIS TIME AND IS STILL PRONE ON THE CPAP. WILL CONTINUE PLAN OF CARE. CALL LIGHT IN REACH, BED IN LOWEST POSITION.
--- NOTE | 2021-01-30 13:33 | NUR ---
RN expressed concern for pt due to declining physical condition. I indicated I would prya for pt and have done so throughout the day.
--- NOTE | 2021-01-30 16:00 | NUR ---
RESP THERAPY IN. PATIENT REMAINS IN CCU. NO CHANGE IN DISCHARGE PLAN.
--- NOTE | 2021-01-30 16:18 | NUR ---
RT ASSISTED RN TO REPOSITION PATIENT TO RT SIDE. RT PERFORMED CPR VIA VIBRATING WAND ON LEFT SIDED SEGMENTS ARNEL WELL. FIO2 DECREASED TO 60% ARNEL WELL.
--- NOTE | 2021-01-30 16:20 | NUR ---
THIS RN IN TO ASSESS PT. PT LAYING PRONE ON BIPAP AWAKE AND ALERT, RT IN ROOM TO ASSESS PT AT THIS TIME. PT INFORMED ON DIET ORDERS FOR THE DAY, QUESTIONS ANSWERED AT THIS TIME BY RN AND RT. PT STATED SHE WANTED TO DRINK WATER. PT PREOXYGENATED VIA 100% FIO2 ON CPAP, CPAP THEN TAKEN OFF MOMENTARILY. PT ABLE TO DRINK WATER, WASH FACE, AND APPLY LIP BALM AT THAT TIME, PT SPO2 DECREASED TO 70% AT THIS TIME BUT RECOVERED QUICKLY ONCE SHE WAS PLACED ON THE CPAP, SPO2 WENT BACK TO THE 90%. PT THEN MOVED ON TO HER RIGHT SIDE PER HER REQUEST. PT NOW RESTING ON HER RIGHT SIDE, PT DENIES PAIN OR SHORTNESS OF BREATH WHEN ASKED AND STATES HER ANXIETY HAS IMPROVED. PT VITALS TAKEN AND PT ASSESSED AT THIS TIME. PT REPORTS NO FURTHER NEEDS WHEN ASKED, WILL CONTINUE PLAN OF CARE. CALL LIGHT IN REACH, BED IN LOWEST POSITION. CPAP NOW AT 60% FIO2, SPO2 90-92%.
--- NOTE | 2021-01-30 17:50 | NUR ---
THIS RN IN TO CHECK PT'S BLOOD SUGAR. PT AWAKE AND ALERT ON THE CPAP AT THIS TIME ON 60% FIO2. PT LAYING ON HER R SIDE AT THIS TIME. PT STATED THAT SHE WAS HAVING LOWER BACK PAIN. PRN OXYCODONE ADMINISTERED ALONG WITH 5 UNITS INSULIN PER SLIDING SCALE. PT NOTED TO DESATURATE TO 70'S WHILE OFF THE CPAP TO TAKE HER PO MEDICATION. PT DENIED SOB AND RECOVERED QUICKLY WHEN PLACED BACK ON CPAP. PT REPORTS NO FURTHER NEEDS AT THIS TIME, WILL CONTINUE PLAN OF CARE. CALL LIGHT WITHIN REACH, BED IN LOWEST POSITION.
--- NOTE | 2021-01-30 18:55 | NUR ---
THIS RN IN TO CHECK ON PT. PT AWAKE AND ALERT AND STATED SHE WANTED TO LAY OVER ON HER LEFT SIDE. PT PREOXYGENATED ON CPAP WITH 100% FIO2 AND THEN ASSISTED WITH WIRE MANAGEMENT. PT NOW ON L SIDE WITH CPAP BACK AT 60%. PT REPORTS NO FURTHER NEEDS AT THIS TIME WHEN ASKED. CALL LIGHT IN REACH, BED IN LOWEST POSITION, WILL CONTINUE PLAN OF CARE.
--- NOTE | 2021-01-30 21:00 | NUR ---
SHIFT REPORT RECEIVED FROM AV CHACON. ASSESSMENT COMPLETED. PT IS ALERT/ORIENTED, REPORTS 5/10 BACK PAIN, PRN MOTRIN AND 1 TAB OXYCODONE GIVEN. LUNGS HAVE GOOD AIR MOVEMENT AND SOUND CLEAR. PRN ROBITUSSIN GIVEN FOR COUGH. HR REGULAR. BOWEL TONES ACTIVE, DENIES NAUSEA. PT REPORTS FEELING ANXIOUS, PRN ATIVAN GIVEN. AL PATENT, UO QS. SKIN GROSSLY INTACT. IV SITES INTACT AND PATENT. PT PLACED ON VAPOTHERM 40L & 100% FOR TAKING MEDICATIONS, SPO2 QUICKLY DROPS TO 60-70%. PT REPORTS SHE DOESN'T FEEL SOB AND WANTS TO CONTINUE TO TAKE A BREAK FROM CPAP. WILL ALLOW FOR A LITTLE LONGER BREAK, WILL CONTINUE TO MONITOR.
--- NOTE | 2021-01-30 21:30 | NUR ---
PT CONTINUE TO FEEL ANXIOUS, PRN HYDROXYZINE GIVEN. PT PLACED BACK ONTO CPAP, FIO2 INCREASED TO 80%.
--- NOTE | 2021-01-30 22:39 | NUR ---
PT RESTING ON LEFT SIDE, NO APPARENT DISTRESS. RESPIRATIONS APPEAR EVEN AND UNLABORED. FIO2 ON CPAP REMAINS AT 80%, SPO2:91% AT THIS TIME.
--- NOTE | 2021-01-31 00:22 | NUR ---
PT CALLED TO REPORT ABDOMINAL CRAMPING. UP TO BSC TO ATTEMPT TO HAVE BM, UNSUCCESSFUL. PRN TYLENOL GIVEN AND HEAT PACK PROVIDED. LUNGS REMAIN CLEAR, CPAP IN PLACE AT 80%, INCREASED TO 100% DURING ACTIVITY. FOELY REMAINS PATENT, URINE CONCENTRATED. PT BACK IN BED NOW, POSITIONED ON RIGHT SIDE, DENIES NEEDS, CALL LIGHT WITHIN REACH.
--- NOTE | 2021-01-31 02:16 | NUR ---
SP02 86%, INCREASED FIO2 TO 90% ON CPAP. PT CONTINUES TO SLEEP ON RIGHT SIDE, NO APPARENT DISTRESS. AFTER INCREASING FIO2, SPO2 NOW 91%.
--- NOTE | 2021-01-31 03:30 | NUR ---
PT CALLED, IN TO CHECK ON HER. ASSESSMENT COMPLETED. PT GIVEN PRN OXYCODONE AND MOTRIN FOR 5/10 BACK PAIN. NEW HEAT PACK ALSO PROVIDED. PT REPORTS HER ABDOMINAL CRAMPING IS IMPROVED. LUNGS REMAIN CLEAR, CPAP IN PLACE AT 90%. VAPOTHERM PLACED FOR MEDS, SPO2 DESATURATED TO ~84% ON 40L @ 100% FIO2. PRN ROBITUSSIN GIVEN FOR COUGH AND PRN ATIVAN GIVEN FOR ANXIETY. AL REMAINS PATENT. IV SITES INTACT. PT PROVIDED WITH NEW ICE WATER AND WARM BLANKETS PER REQUEST. DENIES FURTHER NEEDS AT THIS TIME, CALL LIGHT WITHIN REACH.
--- NOTE | 2021-01-31 06:05 | NUR ---
SPO2 STAYING 86-88%, CALLED AND SPOKE WITH R.T. TO SEE IF PRESSURE SHOULD BE INCREASED ON CPAP. PER R.T., TRY HAVING PT POSITION ON THE OTHER SIDE. PT ROLLED FROM LEFT TO RIGHT SIDE AND SPO2 IS NOW 93%. PT REPORTS BACK PAIN HAS RESOLVED. AL EMPTIED. PT DENIES NEEDS AT THIS TIME.
--- NOTE | 2021-01-31 08:44 | NUR ---
IN PATIENT'S ROOM FOR ASSESSMENT, VITALS, AND BABBITT SPINNER. PT RESTING ON LEFT SIDE WITH CPAP ON, SP02 AROUND 92%. PT AWOKEN EASILY AND TALKED TO. PATIENT STATES SHE HAD A ROUGH NIGHT WITH HER ABDOMEN HURTING, BUT OVERALL WAS ABLE TO SLEEP FAIRLY WELL. DISCUSSED PLAN OF CARE WITH PATIENT. PO MEDS TO BE GIVEN WHEN PATIENT ON VAPOTHERM. RT TO COME IN AND GIVE BREATHING TREATMENT SOON. LUNG SOUNDS ARE RELATIVELY CLEAR, WITH BETTER AERATION HEARD ON LEFT SIDE THAN RIGHT, AND SOME FINE CRACKLES LEFT BASE. SP02 UP TO 97% AFTER DEEP BREATHS. IV ROCEPHIN STARTED. DISCUSSED PLAN FOR PRONING. CONTINUE TO MONITOR CLOSELY. AL DRAINING YELLOW URINE.
--- NOTE | 2021-01-31 10:46 | NUR ---
IN PATIENT'S ROOM TO GIVE AM MEDS. PATIENT REMAINS ON CPAP OF 14 AT 90%. PLAN DISCUSSED WITH PATIENT. PATIENT ABLE TO TURN SELF TO BACK AND THEN HELPED TO SIT UP IN BED. PRE-OXYGENATED PATIENT TO 100% FI02 AFTER THIS REPOSITIONING. PATIENT THEN PUT ONTO VAPOTHERM AT 40L AND 100%. THIS MOVEMENT STARTS PATIENT COUGHING. PT ABLE TO COUGH UP QUITE A BIT OF WHITE TO QUIROZ COLORED SPUTUM. PT ASKING FOR SOME HOT TEA WHICH WAS PROVIDED FOR HER. PATIENT NOT ABLE TO STAY ABOVE 90% WHILE ON VAPOTHERM. PATIENT HOVERED IN THE 80s, THEN DOWN TO THE UPPER 70s, THEN DOWN TO 71% BEFORE TELLING PATIENT WE NEED TO PUT HER CPAP BACK ON. AFTER PLACING CPAP BACK ON, PATIENT STILL DESATURATED DOWN TO 50s FOR A BRIEF PERIOD OF TIME. PATIENT ASKED TO LAY ON LEFT SIDE AGAIN TO HELP SATS RECOVER, WHICH SHE IS ABLE TO DO. SP02 FAIRLY QUICKLY RECOVERS TO MID 90s AFTER LAYING BACK DOWN. PATIENT THEN TURNED DOWN TO 90% FI02 AFTER ABOUT 15 MINUTES OF RECOVERY. SP02 CURRENTLY 96% ON CPAP OF 14 AND 90%. WILL KEEP TURNING DOWN FI02 TOLERATED. PATIENT WILL PRONE NEXT. CONTINUE TO MONITOR CLOSELY.
--- NOTE | 2021-01-31 10:59 | NUR ---
DR. LAM IN CCU AND DISCUSSED PLAN OF CARE WITH HER. DR. LAM TO COME BACK TO ROUND ON PATIENT SOON.
--- NOTE | 2021-01-31 12:04 | NUR ---
DR. LAM IN ROOM AND RT WHILE PATIENT GETTING VEST TREATMENT CPT. PT TOLERATED VERY WELL WITH SP02 ALAWYS STAYING >90%. PT ALSO HAD A CXR AND GIVEN 20 MG IV LASIX. AL DRAINING DILUTE URINE NOW. PT GIVEN ANOTHER SIP OF TEA AND THEN HELPED INTO PRONE POSITION, WHERE SHE IS CURRENTLY, STILL ON CPAP OF 14 AND CURRENTLY 80% FI02 AND HER SP02 IS 97%. WILL ATTEMPT TO SWITCH PATIENT TO VAPOTHERM IN A FEW MINUTES. PATIENT GIVEN PARTIAL BATH WHILE LAYING ON HER STOMACH. PT STILL FEELING HOT SO SHE IS LEFT MOSTLY EXPOSED AND CURTAIN CLOSED FOR HER PRIVACY. WILL CONTINUE TO MONITOR CLOSELY.
--- NOTE | 2021-01-31 13:08 | NUR ---
PATIENT TOLERATED AN HOUR ON HER STOMACH ON VAPOTHERM AND MAINTAINED BETWEEN 82-89% MOST OF THE TIME. PT ABLE TO COUGH UP MORE JUNK FROM HER LUNGS AND COUGH IT INTO TISSUES. PT STATES HER BACK IS STARTING TO HURT WITH ALL THE COUGHING HOWEVER, THEREFORE SHE WAS GIVEN PAIN MEDICATION (SEE EMAR) AND COUGHING MEDICATION. PT STATES, " I JUST FEEL SO MUCH BETTER THAN I DID, COMPARED TO THIS MORNING." THIS IS ENCOUARGING TO HEAR PATIENT SAY. CONTINUE TO MONITOR CLOSELY.
--- NOTE | 2021-01-31 13:17 | NUR ---
PATIENT NOW BACK ON CPAP OF 14 AND FI02 OF 65%. PT WAS ABLE TO COUGH UP MORE THICK YELLOWISH SPUTUM. PT ASKING FOR A LIGHT SHEET TO COVER HER BACK WITH. CURRENTLY 95%. CONTINUE TO MONITOR.
--- NOTE | 2021-01-31 14:30 | NUR ---
Pt remains on high flow 02, bipap, and is proning. No change in plan for dc when cleared medically.
--- NOTE | 2021-01-31 14:45 | NUR ---
PATIENT CONTINUES TO REST/SLEEP IN SUPINE POSITION. SP02 IS RANGING FROM 92-94%, HR IN THE 80s AND RR 19-23. PT APPEARS COMFORTABLE AND WILL ALLOWED TO CONTINUE TO REST. CPAP IS ON AT 14L AND 65%.
--- NOTE | 2021-01-31 17:00 | NUR ---
IN PATIENT'S ROOM TO BRING MEDS, SNACK, TEA AND HELP HER GET OUT OF PRONE POSITION. PT ABLE TO MOVE SELF IN BED REALLY WELL. FIO2 TURNED TO 90, THEN 100% FOR THIS MOVEMENT. PT TOLERATING WELL. DRAW SHEET CHANGED FROM UNDER PATIENT. ONC E PATIENT SITTING UP FOR A WHILE ON 100% FI02 AND AFTER SP02 STAYING 95-98%, SWITCHED TO 40L 100% VAPOTHERM. PT ALWAYS COUGHS AFTER TAKING CPAP OFF. PT TOLERATED THIS WELL, LASTING ABOUT 30 MINUTES WITH SATS ABOVE 80%. PT NEVER STATES SHE IS SHORT OF BREATH. PROVIDED WITH PICKLES, SHERBERT, AND TEA PER HER REQUEST WHICH SHE WAS SHARYN HAPPY TO HAVE. STILL COUGHING UP MORE THICK TENACIOUS YELLOWISH SPUTUM. PATIENT EVENTUALLY NOT KEEPING SP02 UP, AND DROPPED LOW AT 75%. PATIENT THEN LAYED DOWN LEFT SIDE TO SEE IF HER SP02 WOULD COME UP. IT NEVER CAME UP ABOVE 80% THEREFORE SHE WAS PLACED BACK ON CPAP AT 14 AND 100%. WAITING ON RT NOW TO COME DO BREATHING TX. PT DID DRINK A FULL CUP OF TEA AND HAD A SNACK WHILE SITTING UP. AFTER A MINUTE OR TWO, SP02 BACK UP TO MID TO HIGHER 90s THEREFORE FI02 DROPPED TO 80%.
--- NOTE | 2021-01-31 18:59 | NUR ---
PATIENT CONTINUES TO REST ON LEFT SIDE AT THIS TIME AND TOLERATING WELL. SP02 IS 93% ON 70% AND CPAP OF 14. PT NOTED TO BE TEXTING ON HER PHONE. PT'S SISTER GIVEN AN UPDATE EARLIER THIS EVENING.
--- NOTE | 2021-01-31 20:40 | NUR ---
SHIFT REPORT RECEIVED FROM AV TATUM. ASSESSMENT COMPLETED. PT IS ALERT/ORIENTED, REPORTS 8/10 LOW BACK PAIN, PRN TYLENOL AND OXYCODONE GIVEN. HEAT PACK PROVIDED. LUNGS CLEAR, DIM IN BASES, VAPOTHERM PLACED ON PT FOR ASSESSMENT/EVENING MEDS AT 40L & 100% FIO2. HR REGULAR. BOWEL TONES ACTIVE, DENIES NAUSEA. AL PATENT. SKIN GROSSLY INTACT, NO EDEMA NOTED. IV SITES INTACT AND PATENT. PT CURRENTLY PRONED IN BED. REQUESTS BANANA SNACK, PROVDIED, WILL LEAVE VAPOTHERM IN PLACE AT THIS TIME. CALL LIGHT WITHIN REACH.
--- NOTE | 2021-01-31 21:30 | NUR ---
PT FINISHED WITH SNACK, SPO2 STARTING TO DESATURATE TO 70-80%. IN TO SWITCH BACK TO CPAP. PT QUICKLY RECOVERS, FIO2 CURRENTLY SET TO 70%. PT CONTINUES TO REPORT LOW BACK PAIN, SPOKE WITH DR. LAM TO SEE IF FLEXERIL MAY BE AN OPTION, PER MD GIVE PRN ATIVAN EARLY NOW INSTEAD. DISCUSSED PLAN OF CARE WITH PT WHO PLANS TO STAY PRONED TONIGHT. SHE DENIES FURTHER REQUESTS AND IS LOOKING FORWARD TO BREAKFAST IN THE MORNING.
--- NOTE | 2021-01-31 22:18 | NUR ---
PT SLEEPING AT THIS TIME, NO APPARENT DISTRESS. CPAP REMAINS IN PLACE, FIO2 AT 70%. AL EMPTIED.
--- NOTE | 2021-02-01 00:20 | NUR ---
PT SLEEPING, NO APPARENT DISTRESS. REMAINS PRONED, ABLE TO AUSCULTATE LUNGS POSTERIORLY, REMAIN CLEAR/DIM. CPAP REMAINS IN PLACE AT 70%. AL REMAINS PATENT. WILL ALLOW FOR REST AND CONTINUE TO MONITOR.
--- NOTE | 2021-02-01 02:17 | NUR ---
PT CONTINUES TO SLEEP, PRONED POSITION, ON CPAP WITH 70% FIO2. VITAL SIGNS STABLE, NO APPARENT DISTRESS. AL EMPTIED.
--- NOTE | 2021-02-01 03:58 | NUR ---
PT CALLED TO REPORT THAT SHE WAS COLD, WARM BLANKETS PROVIDED. ASSESSMENT COMPLETED. NO COMPLAINTS OF PAIN AT THIS TIME. REMAINS ON CPAP, INCREASED FIO2 TO 80% FOR SPO2 88%. PT LAYING ON LEFT SIDE. AL REMAINS PATENT. NO OTHER CHANGES FROM PREVIOUS ASSESSMENT. CALL LIGHT WITHIN REACH.
--- NOTE | 2021-02-01 06:32 | NUR ---
PT CONTINUES TO SLEEP, LAYING ON LEFT SIDE. CPAP REMAINS IN PLACE, FIO2 AT 80%. AL EMPTIED.
--- NOTE | 2021-02-01 07:45 | NUR ---
REPORT REC'D FROM OPERATIONAL INTELLIGENCE OFFICER. PT RESTING ON CPAP AT 14 AND 80%. RT GOING INTO ROOM SOON TO PROVIDE AM NEB TX AND CPT.
--- NOTE | 2021-02-01 08:21 | NUR ---
FIO2 DECREASED TO 75% FROM 80% ARNEL WELL. ASSISTED RN WITH REPOSITION ARNEL WELL. PT PROTECTING OWN AIRWAY AT THIS TIME.
--- NOTE | 2021-02-01 09:30 | NUR ---
IN PATIENT'S ROOM AT 0900 FOR SEWER AND INSPECTOR, BREAKFAST AND VITAL SIGNS. PT HAD REC'D NEB TX AND CPT FROM RT. PT ALSO GIVEN IV ATIVAN FOR ANXIETY PREVIOUSLY. CURTAINS OPENED AND PATIENT STATES SHE IS FEELING OKAY. PATIENT HAS BEEN RESTING ON CPAP OF 14 AND 70%. PRE-OXYGENATED WITH 100% AND THEN PLACED ON VAPOTHERM OF 40L AND 100%. PATIENT TOLERATED FAIR. ABLE TO HAVE SOME DRINKS OF WATER, DRINKS OF TEA, BUT NOT ABLE TO EAT. WHEN ASKED IF SHE FEELS SHORT OF BREATH, SHE DENIES AND STATES, "I FEEL FINE." AFTER ABOUT 10 MINUTES, SP02 WAS GETTING LOW AT 72% AND PATIENT SWITCHED BACK TO CPAP. PT THEN STATES, "I WANT TO REST ON THIS FOR A COUPLE HOURS." DR. LAM IN ROOM TO SEE PATIENT WELL. PLAN OF CARE REMAINS THE SAME. DISCUSSED WITH PATIENT AND DR. LAM THE NEED FOR A MIDLINE POTENTIALLY FOR PATIENT AND HER OTHER IV SITES TO BE D/C. PT AGREEABLE TO THIS. PATIENT ALSO CONCERNED ABOUT HAVING A BM AND MAY WANT AN ENEMA OR A SUPPOSITORY. WILL CONTINUE TO MONITOR.
--- NOTE | 2021-02-01 10:04 | NUR ---
PATIENT REMAINS ON CPAP AND NOW FI02 DOWN TO 80%, WITH A SP02 OF 95% AT THIS TIME. PT STILL SITTING UPRIGHT IN BED AND RESTING. WILL ATTEMPT TO CONTINUE TO TITRATE DOWN FI02 TOLERATED. PT CONTINUES TO HAVE PRODUCTIVE SPUTUM THAT IS CLEAR AT TIMES AND YELLOWISH/QUIROZ AT TIMES. WILL CONTINUE TO MONITOR. HR IN THE 90s, SINUS RHYTHM. AL DRAINING YELLOW URINE.
--- NOTE | 2021-02-01 10:43 | NUR ---
IN PATIENT'S ROOM AGAIN FOR NEXT ABX. PATIENT STILL SITTING UPRIGHT AND TOLERATING 70% ON CPAP. TEMP CHECKED AGAIN AXILLARY AND IT WAS 100.2. TYLENOL GIVEN ( SEE EMAR). PATIENT STATES "MY BREATHING FEELS MORE SHALLOW TODAY." DISCUSSED THIS WITH PATIENT. ALSO OF NOTE, PATIENT'S RR HAS BEEN RANGING 28-31 TODAY, WHERE YESTERDAY, SHE WAS MORE IN THE 19-24 RANGE. PATIENT WANTING TO LAY BACK DOWN, EITHER ONTO HER LEFT SIDE OR PRONE. HELPED PATIENT INTO LEFT SIDE LAYING POSITION AND CPAP AT 100% WHILE PATIENT RECOVERS. FOR EXAMPLE, AFTER GIVING TYLENOL AND HAVING TO TAKE CPAP OFF FOR THIS, PT WAS PLACED ON 100% 40 L VAPOTHERM. THEN WHILE SWITCHING BACK TO CPAP, SP02 DROPS QUITE QUICKLY TO THE MID 70s, EVEN LOWER 70s. PATIENT STILL HAVING COUGHING FITS AT TIMES TOO WITH PRODUCTION OF SPUTUM. PT HELPED TO SIDE LAY, AND ATTEMPTED TO HELP CALM HER SHE STATES, "IT'S EXACERBATING, AND I FEEL ANXIOUS." POSITIVE ENCOURAGEMENT GIVEN TO PATIENT WHICH SHE RESPONDS WELL TOO. AFTER A COUPLE MINUTES, SP02 UP TO 97%, AND FI02 DECREASED TO 90%. WILL CONTINUE TO WEAN BACK FI02 TOLERATED. RR STILL 30. DR. LAM TO BE NOTIFED OF ALL OF THIS. RT AT DOOR AND ALSO NOTIFIED OF MOST RECENT EVENTS.
--- NOTE | 2021-02-01 12:36 | NUR ---
PATIENT CONTINUES TO LAY ON LEFT SIDE WITH CPAP OF 80-90% FI02. PT STATES SHE FEELS A LITTLE BETTER COMPARED TO EARLIER WHEN SHE WAS FEELING ANXIOUS. SHE STATES, "I'VE JUST BEEN TRYING TO STAY CALM POSSIBLE." PATIENT STATES HER PAIN IS 5/10 IN HER LOW BACK, THAT TRAVELS AROUND HER SIDE. PT GIVEN OXYCODONE FOR THIS PAIN, AND GIVEN A PILLOW/BACK SUPPORT. MIDLINE PLACED IN RIGHT UPPER ARM, 18G BY THIS RN. PATIENT TOLERATED THIS VERY WELL. BLOOD DRAWN FOR BLOOD CULTURES. RT NOW IN ROOM COLLECTING AN ABG SAMPLE. WHEN PATIENT WAS TAKEN OFF CPAP TO GIVE HER AN OXYCODONE, SHE DESATURATED TO MID 60s% VERY QUICKLY. BACK ON CPAP, SHE SLOWLY RECOVERS, BUT IS NOT REACHING THE HIGHER LEVELS OF 90s THAT SHE WAS YESTERDAY. WILL CONTINUE TO MONITOR.
--- NOTE | 2021-02-01 13:00 | NUR ---
MIDLINE INSERTION NOTE: DISCUSSED WITH DR. LAM AND PATIENT THIS AM THE NEED FOR PATIENT TO HAVE A MIDLINE. PATIENT HAS NOT BEEN HOSPITALIZED WITH COVID PNEUMONIA SINCE 01/23/21. PATIENT HAS LIMITED IV SITES, AND IS STILL IN CCU AND IN NEED OF ANOTHER IV. DISCUSSED WITH PATIENT THE POSSIBILTY OF EITHER A PICC LINE OR A MIDLINE. PATIENT AGREEABLE TO EITHER AND GIVES HER VERBAL CONSENT. UPON EVALUATION OF PATIENT'S ARM, PATIENT LAYING ON LEFT SIDE. PT IS ON CONTINUOUS CPAP AT 80-90%, AND A CPAP OF 14. PATIENT HAS DESATURATIONS QUICKLY WITH ANY ACTIVITY. PATIENT'S RIGHT ARM WAS EASY TO EVALUATE WITH THE CURRENT POSITION SHE WAS IN. PATIENT'S CEPHALIC VEIN WAS ALSO EASILY IDENTIFIED, AND VERY LARGE ON U/S. PATIENT'S ARM WAS THEN PREPPED, CLEANED, AND A MIDLINE POWERGLIDE PRO 18 G WAS ADVANCED INTO VEIN, VISUALIZING THE TIP THROUGH INSERTION. BLOOD WAS DRAWN FOR A SET OF BLOOD CULTURES. MIDLINE ADVANCED ALL THE WAY AND HAS NO AMOUNT EXPOSED. SECUREMENT DEVICE, BIO PATCH, AND STERILE DRESSING PLACED OVER CATHETER. PATIENT TOLERATED THIS WHOLE PROCEDURE VERY WELL. THIS MIDLINE SHOULD BE ABLE TO BE USED FOR BLOOD DRAWS FURTHERMORE. PATIENT WAS EDUCATED ON HER MIDLINE AND ENCOURAGED TO ASK ANY QUESTIONS REGARDING HER MIDLINE AT ANY TIME. EDUCATION MATERIAL ALSO LEFT IN PATIENT'S CHART.
--- NOTE | 2021-02-01 13:42 | NUR ---
2ND SET OF BLOOD CULTURES DRAWN FROM MIDLINE IV WELL THE FIRST SET.
--- NOTE | 2021-02-01 16:44 | NUR ---
DR. PETTIT IN ROOM TO SEE PATIENT AT THIS TIME. PLAN IS FOR PATIENT TO GO HAVE A CT SCAN THIS AFTERNOON. PT GIVEN BED BATH AND TOLERATED WELL. PT ABLE TO ROLL W/O DIFFICULTY. PT ON 90% CPAP 14 AT THIS TIME.
--- NOTE | 2021-02-01 16:58 | NUR ---
No change in plan for dc. Pt remains in CCU day 9 with covid.
--- NOTE | 2021-02-01 16:59 | NUR ---
PATIENT GIVEN BED BATH AND LINEN CHANGED. PT TOLERATED WELL. WAITING ON GO AHEAD FROM CT TO GO FOR THIS SCAN.
--- NOTE | 2021-02-01 18:00 | NUR ---
1710 PATIENT PREPARED AND TAKEN TO CT WITH THE HELP OF RT, NURSING INVENTORY CONTROL CLERK, AND EYELET OPERATOR. PATIENT ON CPAP OF 14 AND 80%. PATIENT TOLERATED CT SCAN W/O DIFFICULTY. STARTED TO DESATURATE DOWN TO 85% ON 80% WHILE ON CT TABLE, THEREFORE INCREASED TO 100% WHILE HAVING CT. PATIENT BROUGHT BACK FROM CT AT 1735 AND THEN RT PERFORMED MANUAL CPT ON HER. PATIENT STATES SHE IS FEELING WELL OVERALL, AND THAT SHE IS COMFORTABLE LAYING IN THE POSITION SHE IS IN RIGHT NOW. PT WANTING TO KNOW IF LATER SHE CAN EAT A TURKEY SANDWICH. DISCUSSED THIS WITH PATIENT THAT WE WILL ASK DR. PETTIT IF SHE CAN TOLERATE SMALL AMOUNTS OF FOOD. EXPLAINED TO PATIENT THAT IF SHE CAN TOLERATE BEING OFF CPAP W/O DESATURATING TOO MUCH, AND TOLERATE VAPOTHERM, THEN SHE LIKELY COULD EAT, BUT IF HER OXYGEN LEVELS DROP TOO LOW, IT'S NOT SAFE FOR HER TO BE EATING. PT EXPRESSES UNDERSTANDING. CT SCAN RESULTS HAVE SHOWED THAT SHE DOES NOT HAVE A PULMONARY EMBOLISM. DR. PETTIT CONSULTING WITH BATTERY ASSEM[employer]ER [employer].
--- NOTE | 2021-02-01 20:30 | NUR ---
SHIFT REPORT RECEIVED FROM AV TATUM. ASSESSMENT COMPLETED. PT IS ALERT/ORIENTED, REPORTS 5/10 LOW BACK PAIN, PRN MOTRIN AND OXYCODONE GIVEN. CPAP WAS AT 100%, PLACED HER ON VAPOTHERM 40L @100% FOR EVENING MEDS AND ORAL CARE. DURING THIS TIME, PT DESATURATED TO 60-70%, PLACED BACK ON CPAP @ 100%, ABLE TO TITRATE TO 90% JUST BEFORE LEAVING PT'S ROOM. LUNGS CLEAR, DIM IN BASES, COUGH PRODUCTIVE OF THICK QUIROZ SPUTUM. HR REGULAR. BOWEL TONES HYPOACITVE, DENIES NAUSEA, DULCOLAX SUPPOSITORY ADMINISTERED. SKIN GROSSLY INTACT WITHOUT EDEMA NOTED. MIDLINE IV DRESSING C/D/I, NO SWELLING NOTED, BRISK BLOOD RETURN PRESENT, FLUSHES WITHOUT RESISTANCE. LEFT HAND IV ALSO INTACT AND PATENT. AL PATENT, CATH CARE PROVIDED. PT REPOSITIONED HERSELF ONTO LEFT SIDE, DENIES FURTHER NEEDS AT THIS TIME, CALL LIGHT WITHIN REACH.
--- NOTE | 2021-02-01 22:13 | NUR ---
IN TO GIVE SOLU-MEDROL. PT REMAINS LAYING ON LEFT SIDE WITH BIPAP IN PLACE @ 90%. REPORTS BACK PAIN IS IMPROVED. AL EMPTIED. PT DENIES REQUESTS AT THIS TIME.
--- NOTE | 2021-02-02 00:01 | NUR ---
PT CALLED NEEDING TO USE COMMODE. INCREASED CPAP FIO2 TO 100% FOR ACTIVITY. UP TO BSC WITH SBA, ABLE TO HAVE MEDIUM-SIZED HARD STOOL, PERICARE PROVIDED. PT BACK TO BED, PRONED. VITAL SIGNS STABLE. LUNGS REMAIN CLEAR/DIM. AL PATENT. NO OTHER CHANGES TO PREVIOUS ASSESSMENT. NOW THAT PT IS PRONE, ABLE TO TITRATE FIO2 TO 80%. PT DENIES COMPLAINTS OR REQUESTS AT THIS TIME. CALL LIGHT WITHIN REACH. PT TOLERATED ACTIVITY WELL.
--- NOTE | 2021-02-02 01:35 | NUR ---
PT APPEARS TO BE SLEEPING, REMAINS PRONED. VITAL SIGNS STABLE. CPAP REMAINS AT 80%.
--- NOTE | 2021-02-02 04:13 | NUR ---
PT CALLED TO REPORT INCREASED ANXIETY, PRN VISTARIL GIVEN. PT EXPRESSED CONCERNS ABOUT PAYING FOR THIS PROLONGED HOSPITAL STAY. RN DISCUSSED AVAILABILITY OF PAYMENT PLANS ETC. AND ALSO STATED THAT CASE MANAGEMENT WOULD BE THE BEST RESOURCE IN THIS REGARD; CASE MANAGEMENT CONSULT ORDERED. ASSESSMENT COMPLETED. NO CHANGES AT THIS TIME. CALL LIGHT WITHIN REACH, NO FURTHER REQUESTS AT THIS TIME.
--- NOTE | 2021-02-02 05:52 | NUR ---
BLOOD DRAWN FROM MIDLINE IV FOR MORNING LABS. CONTINUES TO HAVE GOOD BLOOD RETURN AND FLUSHES WITHOUT RESISTANCE. PT RESTING, POSITIONED SUPINE, VITAL SIGNS STABLE. CPAP REMAINS AT 80%.
--- NOTE | 2021-02-02 08:30 | NUR ---
PT WAKES EASILY TO SOUND. PT IS ALERT AND ORIENTED X4. PLAN MADE TO WAIT UNTIL BREAKFAST HAS BEEN DELIVERED TO TAKE CPAP OFF. IV SITES IS WNL, NO REDNESS OR SWELLING NOTED AT THIS TIME. MIDLINE IS INTACT, FLUSHES EASILY, NO REDNESS OR SWELLING NOTED, PT DENIES PAIN AT EITHER SITE. PT REPORTS 5/10 BACK PAIN, 650 MG PO TYLENOL AND 5 MG PO OXY GIVEN. PT REPORTS HAVING ANXIETY ABOUT HAVING COUGHING FITS AND REQUESTS ANXIETY MEDICATION.
--- NOTE | 2021-02-02 08:41 | NUR ---
PT OFF OF CPAP AND TRANSITIONED TO VAPOTHERM 40L/100% TO TAKE PO MEDS AND EAT BREAKFAST. PO VISTARIL GIVEN PER PT REQUEST FOR ANXIETY. PT DESATS TO 52% AT THE LOWEST AND IS AT 82% O2 SAT AT THE HIGHEST WITH VAPOTHERM IN PLACE. PT ABLE TO EAT 100% OF BREAKFAST AND REPORTS FEELING HUNGERY TODAY. PT HAS MULTIPLE COUGHING FITS AND IS ABLE TO EXPECTORATE MODERATE AMOUNTS OF THICK QUIROZ SPUTUM. ONCE PT HAS FINISHED EATING SHE IS PLACED BACK ON CPAP AND HER SATS RETURN TO 90% OR GREATER WITH IN APPROXIMATLY 5-7 MINUTES.
--- NOTE | 2021-02-02 10:26 | NUR ---
PT OFF CPAP FOR A QUICK BREAK AND TO EAT A SNACK. PT PLACED ON VAPOTHERM A 40L/100%. PT BACK ON CPAP WHEN SHE IS FINISHED EATING.
--- NOTE | 2021-02-02 12:40 | NUR ---
PT LAYING HIGH UP ON HER LEFT SIDE, SHE STATES SHE DOES NOT NEED A BREAK AT THIS TIME FROM THE CPAP. PT BLOOD SUGAR CHECKED AND SLIDING SCALE INSULIN GIVEN. PT ASSESSMENT IS WNL. IV SITE AND MIDLINE SITE ARE INTACT. NO SWELLING OR REDNESS NOTED AT EITHER SITE, PT DENIES PAIN AT BOTH SITES. PT REFUSES WATER AND FOOD AT THIS TIME. PLAN MADE WITH PT TO BRING IN AN ENSURE AT 1400 WITH SOLUMEDROL, PT IS AGREABLE TO THIS. CALL LIGHT IS WITHIN REACH. PT DENIES NEED FOR PAIN MEDS AT THIS TIME.
--- NOTE | 2021-02-02 14:45 | NUR ---
OFF CPAP AND ON VAPOTHERM IN ORDER TO TAKE MEDS. PT QUICKLY DESATS TO 80%-60%. VAPOTHERM SETTINGS ARE AT 40L/100%. PT HAS MULTIPLE COUGHING FITS AND IS ABLE TO EXPECTORATE SPUTUM. PT IS OFF CPAP FROM [id number]. PT IS ABLE TO DRINK ONE FULL ENSURE AND ALSO SIPS OF WATER. PT IS ALERT AND ORIENTED X4 DURING THIS TIME, AND DENIES ANY FEELINGS OF SOB. HER HR AND RESP RATE BOTH REMAIN NORMAL. PT REQUESTS AND IS GIVEN VISTARIL FOR ANXIETY.
--- NOTE | 2021-02-02 15:20 | NUR ---
PT GIVEN A FULL BEDBATH, ALL LINENS CHANGED ON THE BED, NEW GOWN PLACED. AL CATH CARES DONE. PT ABLE TO STAND AT THE BEDSIDE WITH CPAP IN PLACE FROM 1506 TO 1518. PT THEN BACK TO BED. PT STATES SHE HAS NO OTHER NEEDS AT THIS TIME.
--- NOTE | 2021-02-02 16:38 | NUR ---
Update from Rn. Pt cont. not improved, but not declining. Cont on CPAP or Vaportherm. Desats to 50-60s. No change in plan for dc.
--- NOTE | 2021-02-02 17:30 | NUR ---
PT DINNER DELIVERED TO BEDSIDE. PT STATES SHE WOULD LIKE TO STAY LAYING DOWN WHILE SHE EATS DINNER. PT OFF CPAP AND THEN ON TO VAPOTHERM AT 40L/100%. PT ABLE TO MAINTAIN SATS IN MID 80% WHILE EATING AND DRINKING. PT IS LAYING ON HER LEFT SIDE WITH HEAD SLIGHTLY ELEVATED. PT ABLE TO EAT 100% OF HER MEAL.
--- NOTE | 2021-02-02 20:30 | NUR ---
PATIENT PROVIDED WITH EVENING MEDS. PRN MEDS FOR COUGH AND BACK PAIN. ACCU CHECK >400, SSI AND LANTUS PROVIDED PER ORDERS. PATIENT ASSISTED TO LAY ON HER BACK FOR THIS TIME. AL DRAINING FREELY. PATIENT REPORTS ANXIETY AND PRN MEDS PROVIDED. PATIENT BACK ON CPAP AT 90% Fi02. CALL LIGHT IN REACH.
--- NOTE | 2021-02-02 23:00 | NUR ---
PATIENT APPEARS TO BE SLEEPING SOUNDLY. TITRATED TO 75% Fi02 ON CPAP. RR 18. PATIENT LAYING ON HER LEFT SIDE.
--- NOTE | 2021-02-03 00:30 | NUR ---
PATIENT CONTINUES TO REST ON LEFT SIDE. PATIENT DENIED ANY NEEDS. RR 18. O2 SAT 90-92% ON 75% Fi02 CPAP.
--- NOTE | 2021-02-03 02:30 | NUR ---
PATIENT PROVIDED WITH PRN PAIN MEDS FOR 5/10 BACK PAIN. ASSISTED TO TURN TO RIGHT RIDE. PATIENT HAVING SIPS OF WATER AND PRN COUGH MEDS. PATIENT DENIED FURTHER NEEDS. CPAP BACK IN PLACE AT 75% Fi02. RR 16.
--- NOTE | 2021-02-03 05:45 | NUR ---
PATIENT OFF CPAP FOR WATER AND CHAP STICK. VS STABLE. IV FLUIDS PER ORDER, SITE WNL. BLOOD DRAWN. DRESSING ON MIDLINE CHANGED. AL EMPTIED. SCHEDULED MEDS PROVIDED. PATIENT BACK ON CPAP AT 80% Fi02.
--- NOTE | 2021-02-03 09:10 | NUR ---
PT IS ALERT AND ORIENTED X4, WAKES EASILY TO SOUND. PT GIVEN BREAKFAST AND FRESH ICE WATER. PT OFF CPAP AND ONTO VAPOTHERM AT 40/100 FOR EATING AND TAKING PO MEDS. PT ABLE TO HOLD O2 SATS IN THE MID 80% WHILE ON VAPOTHERM LAYING ON HER LEFT SIDE AND EATING OR DRINKING FOR ABOUT 10 MINUTES THEN DESATS TO 65-82% FOR ABOUT 3 MINUTES. PT PLACED BACK ON CPAP. PT REPORTS 5/10 LOW BACK PAIN - PO MOTRIN AND OXYCODONE GIVEN. PT REQUESTS AND IS GIVEN 50 MG PO VISTARIL FOR ANXIETY RELATED TO COUGHING FITS. PT ABLE TO EAT 100% OF BREAKFAST. PT DENIES NAUSEA AND CHEST PAIN.
--- NOTE | 2021-02-03 13:35 | NUR ---
PT AWAKE AND ALERT X4. CPAP IN PLACE PT SATS ARE 90-92% WHILE RESTING. PT SWITCHED TO CPAP TO EAT LUNCH AND TAKE MEDS. PT SLOWLY DESATS TO 70'S OVER 15-20 MINUTES. PT GIVEN PO PAIN MEDS FOR 5/10 LOW BACK PAIN. PT DENIES NAUSEA. PT ABLE TO EAT 100% OF LUNCH. URINE OUT PUT REMAINS GREATER THAN QS. PT VITALS WNL EXCEPT FOR O2 SATS. PT BACK ON CPAP AFTER EATING AND DRINKING FLUIDS.
--- NOTE | 2021-02-03 17:24 | NUR ---
PT STANDING AT THE BEDSIDE FOR TRIAL WITH CPAP IN PLACE, PT DESATS QUICKLY TO 72-77% FROM [id number]. CPAP IS AT 70% PT ASSISTED TO SIT UP IN THE CHAIR WITH CPAP ON TO EAT DINNER. PT DENIES PAIN AND NAUSEA.
--- NOTE | 2021-02-03 18:20 | NUR ---
No change in plan for dc.
--- NOTE | 2021-02-03 18:30 | NUR ---
PT ABLE TO EAT 100% OF DINNER, REMAINS UP IN THE CHAIR. ALL LINENS CHANGED, HAIR SHAMPOO DONE. PT PLACED BACK ON TO THE CPAP AT 1836, DESATS LOW 60% WITH VAPOTHERM 40L/100%. ALL OTHER PT VITALS WNL. AFTER PT STANDING AT THE BEDSIDE FOR 4-6 MINUTES SHE STATES "THAT WAS REALLY HARD, I'M EXHAUSTED". IV AND MIDLINE SITES ARE INTACT, NO REDNESS OR SWELLING, PT DENIES PAIN A EITHER SITE. BOTH SITES ARE S-LOCK.
--- NOTE | 2021-02-03 20:00 | NUR ---
PATIENT CALLED FOR ASSIST TO GET BACK TO BED. ASSISTED PATIENT TO BED AND TO HER RIGHT SIDE. PATIENT OFF CPAP TO VAPOTHERM AT 40L 100% Fi02. PATIENT TOOK ORAL MEDS AND HAD WATER. PUT CHAP STICK ON. LUNG SOUNDS ARE CLEAR THROUGHOUT. COUGH MEDS PROVIDED. PATIENT HAVING LESS SPUTUM. GOOD URINE OUTPUT. NO NAUSEA. BACK PAIN WELL CONTROLLED AT THIS TIME. PATIENT BACK ON CPAP AT 80% Fi02.
--- NOTE | 2021-02-03 23:24 | NUR ---
PATIENT PROVIDED WITH SCHEDULED MEDS AND PRN MEDS FOR ANXIETY. PATIENT OFF CPAP TO COUGH AND SPIT. THEN RIGHT BACK TO CPAP AT 80% Fi02. AL DRAINING WELL. PATIENT REPORTS PAIN TOLERABLE IN HER LOWER BACK. DENIED OTHER NEEDS. CALL LIGHT IN REACH.
--- NOTE | 2021-02-04 02:00 | NUR ---
PATIENT APPEARS TO BE SLEEPING SOUNDLY. RR 16. O2 SATS 90-92% ON CPAP 80% Fi02.
--- NOTE | 2021-02-04 06:36 | NUR ---
PATIENT REPORTS SLEEPING WELL AND FEELING MORE ENERGIZED THIS MORNING. VS STABLE. OFF CPAP FOR WATER AND MEDS. PRN FOR COUGH AND PAIN. AL EMPTIED. DESATS TO 70-80% ON VAPOTHERM MAX SETTINGS. ASSISTED TO ORDER BREAKFAST.
--- NOTE | 2021-02-04 10:10 | NUR ---
THIS RN IN TO ASSESS PT AND ADMINISTER SCHEDULED MEDICATIONS. PT LAYING IN BED ON HER SIDE ON THE CPAP ALERT AND ORIENTED X 3. SPO2 93-94% ON 80% FIO2. PT DENIES SOB OR LIGHTHEADEDNESS WHEN ASKED AND DENIES PAIN AT THIS TIME. PT FIO2 INC TO 100% TO PREOXYGENATE IN ORDER TO TAKE PO MEDS AND EAT BREAKFAST. ASSESSMENT COMPLETED AT THIS TIME, VITALS TAKEN. PT THEN POSITIONED ONTO HER RIGHT SIDE AND CHANGED TO VAPOTHERM ON 40LPM 100% FIO2 TO TAKE MEDS (SEE MAR), WASH FACE, AND EAT BREAKFAST. PT MAINTAINED HER SPO2 AROUND 80-85% DURING THIS TIME AND DENIED ANY FEELINGS OF SOB. PT HAD TO BE PLACED ON THE CPAP IN THE MIDDLE OF HER MEAL TO OXYGENATE HER AGAIN HER SPO2 BEGAN TO DROP BELOW 80%. PT ABLE TO GET BACK ON VAPOTHERM AND FINISH HER BREAKFAST BEFORE BEING PLACED BACK ON THE CPAP. RT WAS IN DURING THAT TIME TO ASSESS PT. PT NOW BACK ON CPAP SITTING UP IN BED. FIO2 LEFT AT 100% , SPO2 90-91% AND INCREASING. PT DENIES SOB AND REPORTS NO FURTHER NEEDS AT THIS TIME WHEN ASKED. CALL LIGHT IN REACH, BED IN LOWEST POSITION, WILL CONTINUE PLAN OF CARE.
--- NOTE | 2021-02-04 11:05 | NUR ---
THIS RN IN TO CHECK ON PT. PT SITTING UP IN BED AWAKE AND ALERT ON HER PHONE. PT DENIES ANY PAIN OR NEEDS AT THIS TIME. PT ON CPAP AT THIS TIME. FIO2 TURNED DOWN FROM 100% TO 80%. DR. PETTIT IN ROOM TO ASSESS PT AND UPDATE ON PLAN OF CARE. PT REPORTS NO FURTHER NEEDS WHEN ASKED. CALL LIGHT IN REACH, BED IN LOWEST POSITION, CPAP AT 80%, SPO2 AT 93%. WILL CONTINUE PLAN OF CARE.
--- NOTE | 2021-02-04 12:05 | NUR ---
RESPONDED TO PT CALL LIGHT, PT PT LAYING IN BED ON THE CPAP AT 80% FIO2. SPO2 AT 93%. PT STATED SHE WAS FEELING ANXIOUS THIS TIME. PRN VISTARIL GIVEN ALONG WITH SCHEDULED INSULIN PER SLIDING SCALE. PT THEN ASSISTED ON TO HER SIDE AT THIS TIME. VITALS TAKEN, PT ASSESSED AFTERWARDS. PT REPORTS NO FURTHER NEEDS AT THIS TIME AND IS STILL ON THE CPAP AT 80% FIO2. CALL LIGHT IN REACH, BED IN LOWEST POSITION, WILL CONTINUE PLAN OF CARE.
--- NOTE | 2021-02-04 15:25 | NUR ---
THIS RN IN TO CHECK ON PT AND ADMINISTER SCHEDULED MEDICATION. PT LAYING ON SIDE AT THIS TIME ON CPAP AT 80% FIO2, SPO2 AT 93%. PT STATES HER ANXIETY HAS SUBSIDED AT THIS TIME AND SHE IS FEELING CALMER. PT PREOXYGENATED AT THIS TIME AND SCHEDULED MEDICATION ADMINISTERED. PT THEN ABLE TO EAT HER LUNCH WHILE ON THE VAPOTHERM AT 40LPM 100% FIO2. PT MAINTAINED IN THE 85% RANGE FOR SPO2 DURING THIS TIME AND NEEDED TO BE PUT ON THE CPAP MOMENTARILY TO INCREASE SATURATIONS BEFORE FINISHING HER MEAL. PT NOW LAYING PRONE IN THE BED ON THE CPAP AT 70% FIO2, SPO2 MAINTAINING AT 92%. PT REPORTS NO SOB AND DENIES THE NEED FOR PRN PAIN MEDICATION AT THIS TIME. WILL CONTINUE PLAN OF CARE. CALL LIGHT IN REACH, BED IN LOWEST POSITION.
--- NOTE | 2021-02-04 17:30 | NUR ---
THIS RN IN TO CHECK ON PT, PT LAYING IN BED AT THIS TIME AWAKE AND ALERT ON THE CPAP. PT STATES SHE IS HAVING PAIN IN HER LOWER BACK AND FEELING ANXIOUS. PRN PAIN MEDICATION, ANXIETY MEDICATION ADMINISTERED ALONG WITH SLIDING SCALE INSULIN (SEE MAR). PT LEFT ON CPAP AT 70% FIO2. PT REPORTS NO FURTHER NEEDS AND DENIES SOB WHEN ASKED. CALL LIGHT LEFT IN REACH, BED IN LOWEST POSITION, WILL CONTINUE PLAN OF CARE.
--- NOTE | 2021-02-04 18:21 | NUR ---
THIS RN IN TO ASSIST PT WITH EATING HER DINNER. PT AWAKAE AND ALERT ON CPAP LAYING IN BED. FIO2 INCREASED TO 100% FOR A FEW MINUTES BEFORE PUTTING HER ON THE VAPOTHERM AT 40LPM 100% FIO2. PT ABLE TO FINISH HER MEAL WITHOUT NEEDING THE CPAP. PT MAINTAINED HER SPO2 AT 80-85% WHILE EATING FOR ABOUT 10 MINUTES. PT NO BACK ON THE CPAP AT 70% FIO2, SPO2 90-91%. PT STILL DENIES SOB WHEN ASKED. PT REPORTS NO FURTHER NEEDS AT THIS TIME WHEN ASKED AND IS NOW SITTING UP IN THE BED SEMI-FOWLERS ON THE CPAP. CALL LIGHT IN REACH, BED IN LOWEST POSITION, WILL CONTINUE PLAN OF CARE.
--- NOTE | 2021-02-04 20:40 | NUR ---
SHIFT REPORT RECEIVED FROM AV CHACON. PT IS ALERT/ORIENTED, REPORTS 4/10 LOW BACK PAIN, PRN MOTRIN GIVEN. LUNGS CLEAR WITH FINE CRACKLES IN BASES. WAS ON CPAP @ 70%, PROXYGENATED WITH 100% FIO2 PRIOR TO PLACING VAPOTERM 40L @ 100% FOR EVENING MEDS AND ORAL CARE. HR REGULAR. BOWEL TONES ACTIVE, DENIES NAUSEA. SKIN GROSSLY INTACT WITHOUT EDEMA NOTED. IV SITES INTACT, MIDLINE HAS BRISK BLOOD RETURN AND FLUSHES WITHOUT RESISTANCE. CPAP REPLACED AFTER CARES, ABLE TO TITRATE TO 90% PRIOR TO LEAVING ROOM. AL PATENT, CATH CARE PROVIDED. PT DENIES NEEDS AT THIS TIME. CALL LIGHT WITHIN REACH.
--- NOTE | 2021-02-04 22:09 | NUR ---
IN TO GIVE SCHEDULED SOLU-MEDROL. PRN ROBITUSSIN ALSO GIVEN FOR COUGH. WARM BLANKETS PROVIDED PER REQUEST. FIO2 TITRATED TO 80%. PT DENIES FURTHER NEEDS.
--- NOTE | 2021-02-05 00:15 | NUR ---
ASSESSMENT COMPLETED, UNCHANGED FROM PREVIOUS. ABLE TO TITRATE FIO2 ON CPAP TO 70%. AL REMAINS PATENT. PT DENIES NEEDS. VITAL SIGNS STABLE.
--- NOTE | 2021-02-05 03:09 | NUR ---
PT LAYING ON LEFT SIDE, APPEARS TO BE SLEEPING. NO APPARENT DISTRESS. VITAL SIGNS STABLE. CPAP REMAINS AT 70%.
--- NOTE | 2021-02-05 05:15 | NUR ---
ASSESSMENT COMPLETED. PT GIVEN PRN OXYCODONE FOR 4/10 LOW BACK PAIN, PT REPOSITIONING HERSELF IN BED. PRN TESSALON PERLES GIVEN FOR COUGH. CPAP REMAIN AT 70%, NO CHANGES FROM PREVIOUS ASSESSMENT. LABS DRAWN FROM MIDLINE FOR MORNING LABS, CONTINUES TO HAVE BRISK BLOOD RETURN AND FLUSHES WITHOUT ISSUE. PT DENIES FURTHER NEEDS AT THIS TIME, CALL LIGHT WITHIN REACH.
--- NOTE | 2021-02-05 06:21 | NUR ---
IN TO GIVE SCHEDULED SOLU-MEDROL. PT REPORTS BACK PAIN IS IMPROVED. FRESH ICE WATER PROVIDED. BREAKFAST ORDER RECEIVED AND CALLED TO KITCHEN. PT DENIES FURTHER NEEDS, CALL LIGHT WITHIN REACH.
--- NOTE | 2021-02-05 09:36 | NUR ---
IN PATIENT'S ROOM FOR ASSESSMENT, MEDS, BREAKFAST. PATIENT REPORTS THAT SHE IS FEELING ANXIOUS FIRST THING. RT IN ROOM AND DISCUSSING PLAN OF CARE WITH PATIENT. PATIENT READY TO SIT UP AND EAT BREAKFAST. PRE-OXYGENATED WITH 100% WHILE PREPARING VAPOTHERM. SWITCHED TO VAPOTHERM AT 40L AND 100% AND PATIENT TOLERATED ABOUT 20 MINUTES OFF OF CPAP AND MAINTAINED HER OXYGEN LEVELS IN THE MID TO LOWER 80s THE WHOLE TIME, WHICH SEEMED TO BE IMPROVEMENT FROM PRIOR TRIALS. DISCUSSED PATIENT'S LONG HOSPITAL STAY, AND THE THINGS SHE NEEDS TO DO TO KEEP HERSELF IN GOOD SPIRITS. PATIENT ABLE TO EAT ALL OF HER BREAKFAST AND DRINK HER TEA BEFORE NEEDING TO GO BACK ON CPAP. NOW SITTING UP IN BED, READING SOME MAGAZINES. CPAP OF 14 AND 90% AT THE MOMENT, WILL WORK ON TITRATING DOWN TOLERATED.
--- NOTE | 2021-02-05 11:14 | NUR ---
DR. PETTIT IN ROOM WITH PATIENT. PATIENT REPORTS THAT OVERALL SHE IS FEELING BETTER. PATIENT ABLE TO GO DOWN TO 65% ON VAPOTHERM. PT REPORTS STILL HAVING THE ANXIETY. PATIENT GIVEN HYDROXYZINE PRN FOR ANXIETY. PT'S ROOM ALSO PICKED UP TO HELP HER FEEL LIIKE THE ROOM IS LESS CLUTTERED PATIENT STATES WHEN SHE IS TRYING TO REST, SHE LOOKS UP AND SEES ALL THIS "STUFF" AND IT MAKES HER ANXIOUS. PATIENT NOW RESTING ON VAPOTHERM AT 40L AND 100% ON HER STOMACH. PT HELPED TO GET IN A COMFORTABLE POSITION.
--- NOTE | 2021-02-05 11:57 | NUR ---
PATIENT CONTINUES TO REST, PRONED, ON 40L AND 100% VAPOTHERM. SP02 IS 89% AT THIS TIME. LONG SP02 STAYS 85% OR BETTER, OKAY FOR PATIENT TO BE OFF CPAP. HR IN THE 70s, SINUS RHYTHM. CONTINUE TO MONITOR.
--- NOTE | 2021-02-05 14:05 | NUR ---
PT MEDICATED FOR PAIN WHICH SHE IS HAVING IN HER RIGHT QUAD MUSCLE. PATIENT STATES SHE FEELS LIKE SHE PULLED IT WHEN TRYING TO SIT UP, AND SHE ALSO STATES, "I HAVE NO MUSCLE LEFT." PATIENT ABLE TO TAKE MEDS W/O PROBLEM. PT ALSO ATE ALMOST ALL OF HER TURKEY SANDWICH. PT HAS BEEN OFF CPAP AND ON VAPOTHERM SINCE 1109 AND HAS MAINTAINED >85% FOR THAT ENTIRE TIME. THIS WAS CLOSE TO 3 HRS OFF CPAP, WHICH IS REMARKABLY MORE THAN SHE HAS BEEN ABLE TO TOLERATE. NOW BACK ON CPAP AND RESTING ON 80%. WILL TITRATE DOWN TOLERATED. AL DRAINING YELLOW URINE. CALL LIGHT WITHIN REACH. PT IN GOOD SPIRITS.
--- NOTE | 2021-02-05 16:53 | NUR ---
PATIENT'S HAIR WASHED WHILE SHE WAS IN BED, AND LAYING ON RIGHT SIDE. PT TOLERATED WELL AND VERY APPRECIATIVE. PT THEN HELPED UP TO CHAIR AT BEDSIDE, BUT BEFORE WAS PLACED BACK ON CPAP AT 100% TO PRE-OXYGENATE PATIENT. PT MOVING WELL, DENIES SHORTNESS OF BREATH. AFTER A FEW MINUTES SITTING IN CHAIR, SWITCHED TO VAPOTHERM. LINENS CHANGED. FULL BED BATH GIVEN PRIOR TO PT GETTING UP. PT'S HAIR BRAIDED. NOW MAINTAINING IN THE MID TO LOWER 80s ON VAPOTHERM WHILE SITTING IN CHAIR. DINNER ORDERED FOR PATIENT.
--- NOTE | 2021-02-05 18:47 | NUR ---
PATIENT TAKEN OFF ECG LEADS, AND ALSO TAKEN OFF BEDSIDE PULSE OX. PATIENT PUT ON A TELE PULSE OX. PT ADMITS THAT THE CONTINUOUS BEEPING OF THE MONITORS CAUSES HER MORE ANXIETY. PT SAT ON BSC TO ATTEMPT TO HAVE A BM BUT UNABLE TO. PT ENCOURAGED WITH HER OVERALL PROGRESS TODAY, AM I. PT NOW SITTING UP IN BED AND EATING HER DINNER. CALL LIGHT WITHIN REACH. CONTINUE TO MONITOR.
--- NOTE | 2021-02-05 20:30 | NUR ---
SHIFT REPORT RECEIVED FROM AV TATUM. PT IS ALERT/ORIENTED, CURRENTLY ON CPAP AT 100%. VAPOTHERM 40L @ 100% PLACED FOR EVENING MEDS AND ORAL CARE. LUNGS HAVE CRACKLES IN BASES, PT DENIES SOB EXCEPT FOR WHEN COUGHING. HR REGULAR, DENIES CHEST PAIN. BOWEL TONES ACTIVE, DENIES NAUSEA. UP TO BSC TO HAVE SMALL HARD BM. AL PATENT, CATH CARE/PERICARE PROVIDED. IV TO LEFT HAND D/C'D NO LONGER NEEDED, CATHETER TIP INTACT. MIDLINE IV HAS BRISK BLOOD RETURN AND FLUSHES WITHOUT RESISTANCE; DRESSING C/D/I, NO SWELLING OR REDNESS NOTED AT SITE. SKIN IS GROSSLY INTACT WITHOUT EDEMA NOTED. PT WISHES TO PRONE WITH VAPOTHERM IN PLACE. PRN MEDICATIONS GIVEN FOR COUGH AND ANXIETY. PT DENIES FURTHER NEEDS, CALL LIGHT WITHIN REACH.
--- NOTE | 2021-02-05 22:06 | NUR ---
PT REMAINS PRONE WITH VAPOTHERM IN PLACE. SPO2 NOW 98%.
--- NOTE | 2021-02-05 23:07 | NUR ---
IN TO GIVE SCHEDULED SOLU-MEDROL. PT HAS REPOSITIONED HERSELF ONTO HER RIGHT SIDE. PT BRIEFLY DESATURATED WITH MOVEMENT TO 85-87%, BUT QUICKLY RECOVERED TO 92-94%. VAPOTHERM SETTINGS UNCHANGED.
--- NOTE | 2021-02-06 00:15 | NUR ---
PT APPEARS TO BE SLEEPING AT THIS TIME, NO APPARENT DISTRESS, RESPIATIONS EVEN AND UNLABORED. VAPOTHERM REMAINS IN PLACE, SETTINGS UNCHANGED. SPO2:91%, HR:57.
--- NOTE | 2021-02-06 03:05 | NUR ---
PT CONTINUES TO REST IN BED, NOW POSITIONED ON LEFT SIDE. NO APPARENT DISTRESS, RESPIRATIONS APPEAR EVEN AND UNLABORED. VAPOTHERM REMAINS IN PLACE, SETTINGS UNCHANGED. SPO2:92%, HR:65.
--- NOTE | 2021-02-06 04:22 | NUR ---
ASSESSMENT COMPLETED. REMAINS ON VAPOTHERM, SETTINGS UNCHANGED. PT DENIES SOB, FINE CRACKLES REMAIN IN BASES. PRN MOTRIN AND OXYCODONE GIVEN FOR 4/10 LOW BACK PAIN, PT ABLE TO REPOSITION SELF IN BED. PRN ROBITUSSIN GIVEN FOR COUGH. PT DENIES ANXIETY AT THIS TIME, STATES SHE'S BEEN ABLE TO SLEEP WELL. AL REMAINS EMPTIED, REMAINS PATENT. PT DENIES NEEDS AT THIS TIME, CALL LIGHT WITHIN REACH.
--- NOTE | 2021-02-06 05:12 | NUR ---
PT HAD REPOSITIONED TO SUPINE AND HAD COUGHING FIT, OXYGEN SATURATIONS DROPPED TO 75-85% ON VAPOTHERM. PT DID NOT FEEL SOB AND DID NOT WANT TO PRONE AT THIS TIME D/T BACK DISCOMFORT. ATTEMPTED TO GIVE PT SOME TIME TO RECOVER, BUT COULD NOT GET SPO2 TO MAINTAIN >80-85%. PRN TESSALON PERLES GIVEN FOR COUGH AND PRN VISTARIL GIVEN FOR ANXIETY PRIOR TO PLACING PT ON CPAP OF 14 AT 100%. SATURATIONS QUICKLY RECOVERED AND NOW SPO2 IS 98%.
--- NOTE | 2021-02-06 05:26 | NUR ---
FIO2 DECREASED TO 80% FOR SPO2 OF 100%.
--- NOTE | 2021-02-06 06:14 | NUR ---
IN TO GIVE SCHEDULED SOLU-MEDROL. PT REPORTS FEELING COMFORTABLE ON CPAP AND ALSO REPORTS THAT HER BACK PAIN IS IMPROVED. FIO2 ON CPAP DECREASED TO 70% FOR SPO2 OF 97%.
--- NOTE | 2021-02-06 08:14 | NUR ---
REPORT REC'D FROM MARKING DEVICES ASSEMBLER. PATIENT RESTING IN BED ON CPAP OF 14 AND 70%. PT STATES SHE IS DOING WELL, AND HER ANXIETY IS UNDER CONTROL AT THE MOMENT. PER REPORT, PATIENT SPENT 7.5 HRS ON VAPOTHERM AND OFF CPAP, WHICH BY FAR THE LONGEST PERIOD OF TIME THUS FAR IN THE LAST WEEK SHE'S TOLERATED BEING OFF CPAP. PT ENCOURAGED WITH THIS PROGRESS. WAITING FOR BREAKFAST PRIOR TO GOING INTO PATIENT'S ROOM WITH MEDS, ASSESSMENT, VITALS. SP02 IS 91% ON CPAP AT THIS TIME. CONTINUE TO MONITOR.
--- NOTE | 2021-02-06 09:09 | NUR ---
PATIENT SITTING UP EATING BREAKFAST AT THIS TIME. ON VAPOTHERM AT 40L AND 100%. SP02 IS STAYING IN THE LOW 80s, 82-85% AND PATIENT TOLERATING WELL. ASSESSMENT COMPLETE AND VITALS WELL. PT REPORTS SHE SLEPT VERY WELL, AND COULDN'T BELIEVE IT WHEN SHE WOKE UP AND WAS STILL ON THE VAPOTHERM. PT IN GOOD SPIRITS. PAIN IS UNDER CONTROL, WELL PATIENT'S ANXIETY. PLAN OF CARE DISCUSSED FOR THE DAY.
--- NOTE | 2021-02-06 10:41 | NUR ---
PATIENT UP TO BSC TO HAVE A BM AND ABLE TO HAVE A LARGE FORMED BM. PT ON VAPOTHERM FOR MOST OF THIS, AND DROPS DOWN TO LOW 65%, BUT CONTINUES TO FEEL FINE. BACK ON CPAP AT 90% WHILE RECOVERING FROM ACTIVITY AND QUICKLY POPS UP WITH THIS TO MID TO LOW 90s. PT NOW BACK ON VAPOTHERM AT 40L AND 100%, AND SP02 IS 85-87%. PT RESTING ON LEFT SIDE.
--- NOTE | 2021-02-06 13:06 | NUR ---
PT UP TO BS TO HAVE A SECOND BM. PT PANICKING BECAUSE SHE FELT LIKE SHE WAS GOING TO BE INCONTINENT, WHICH SHE WAS NOT. PT REPORTS, "NO MORE PRUNE JUICE." PT NOW IN PRONE POSITION AND SP02 IS 88% ON 40 L AND 100%. NEW BATTERIES PROVIDED FOR HER FAN.
--- NOTE | 2021-02-06 14:23 | NUR ---
PATIENT CONTINUES TO REST IN PRONE POSITION, AND DOING WELL. SP02 IS RANGING FROM 86-95% ON THE 40L AND 100% VAPOTHERM. RR EVEN AND UNLABORED. CONTINUE TO MONITOR.
--- NOTE | 2021-02-06 15:07 | NUR ---
IN PATIENT'S ROOM AND HELPED HER OUT OF PRONING AND INTO SEMI FOWLERS. PT STATS SHE HAS BEEN DOING WELL AND COUGHED UP A BUNCH OF STUFF WHEN PRONED. PT HAS REMAINED ON VAPOTHERM SINCE AROUND 1200. LUNCH ORDERED FOR PATIENT. ASSESSMENT COMPELTE AND UNCHANGED FROM PRIOR.
--- NOTE | 2021-02-06 16:17 | NUR ---
PT PLACED BACK ON CPAP FROM VAPOTHERM DUE TO OXYGEN SAT BEING IN THE HIGH 70'S TO LOW 80'S ON THE VAPOTHERM. PT ON THE CPAP AT 70% FIO2. OXYGEN SAT INCREASED TO THE MID 80'S ON THIS. PT HAS NO REQUESTS AT THIS TIME. BED RAILS UP X2, CALL LIGHT WITHIN REACH.
--- NOTE | 2021-02-06 17:05 | NUR ---
PT PUT NET APPLICATION ARCHITECT LIGHT TO NOTIFY STAFF SHE WAS HAVING "BAD ANXIETY". IN ROOM WITH PT, INSTRUCTING HER ON HOW TO CALM HER BREATHING. PT IS ABLE TO DO THIS. PT PROVIDED ANXIETY MEDICATION PER ORDER. PT REASSURED. PT IS THANKFUL FOR THIS. PT ALSO PROVIDED A COOL WASHCLOTH FOR HER HEAD PER HER REQUEST. PT LAYING ON HER RIGHT SIDE WITH CPAP ON.
--- NOTE | 2021-02-06 17:17 | NUR ---
PT PLACED BACK ON THE VAPOTHERM AT 40 LPM, 100% O2. PT STATES THIS IS HELPING WITH HER ANXIETY.
--- NOTE | 2021-02-06 18:12 | NUR ---
PATIENT GIVEN PAIN MEDICATION AND HELPED TO PLACE CPAP BACK ON. SP02 WAS STAYING IN THE MID TO UPPER 70S ON VAPOTHERM ALONE. PT HAS TOLERATED MANY HOURS OFF CPAP TODAY AND DONE WELL, HOWEVER SHE SEEMS TIRED THIS EVENING. WILL CONTINUE TO MONITOR CLOSELY.
--- NOTE | 2021-02-06 19:11 | NUR ---
Update from Rn, pt showing very slight improvement, able to be off CPAP for short periods.
--- NOTE | 2021-02-06 19:32 | NUR ---
Report recieved, care of patient assumed at htis time.
--- NOTE | 2021-02-06 19:35 | NUR ---
IN TO SAY HI TO PT, PT AWAKE IN BED WEARING VAPOTHERM, DOES NOT APPEAR TO BE IN DISTRESS, DENIES NEEDS AT THIS TIME.
--- NOTE | 2021-02-06 20:35 | NUR ---
IN TO DO ASSESSMENT ADN DAK[place] MURRIETA. PT SITTING UP IN BED, HAS BEEN ON VAPOTHERM 40L/100% WITH SPO2 88%. IS IN GOOD SPIRITS, ENCOURAGED WITH HER PROGRESS TODAY ALTHOUGH SHE REPORTS FEELING VERY TIRED. DOES REQUEST TO HAVE "ANYTHING THAT WILL HELP ME RELAX" AND OKAY WITH PLAN TO GIVE OXYCODONE AND VISTARIL LATER WHEN AVAILABLE.
--- NOTE | 2021-02-06 21:00 | NUR ---
PT HAD DESATURATED TO 68% WHILE SITTING UP IN BED ON VAPOTHERM. ASKED IF SHE COULD KEEP VAPOTHERM ON FOR NOW AND WILL FOCUS ON RELAXING AND TRY TO GET SATS UP-AFTER APPROX 20 MINUTES SATS DID COME UP TO 88% AND PT IN PRONE POSITION.
--- NOTE | 2021-02-06 22:56 | NUR ---
PT CALLS FOR HELP WITH REPOSITIONING ONTO RIGHT SIDE. OXYCODONE 5MG AND VISTARIL GIVEN. DIPPED TO 80% WITH MOVEMENT, STARTING TO CLIMB UP NOW. CONT ON VAPOTHERM 40L/100%.
--- NOTE | 2021-02-07 00:15 | NUR ---
IN TO DO ASSESSMENT, COUGH SYRUP GIVEN PER REQUEST. PT TURNS SELF IN BED ONTO LEFT SIDE. SATS 87% ON VAPOTHERM.
--- NOTE | 2021-02-07 01:03 | NUR ---
PT UP TO BEDSIDE TO GET TO BSC, UP WITH ASSIST. SATS DOWN TO 70S WHILE UP. ASSESSMENT DONE, CRACKLES IN BASES. ONCE PT BACK IN BED SHE RELUCTANTLY AGREES TO WEAR CPAP.
--- NOTE | 2021-02-07 02:45 | NUR ---
PT CALLS TO ASK FOR TEA, STATES SHE HAS BEEN HAVING MORE COUGHING AND PRODUCTION OF SPUTUM MAKING IT DIFFICULT TO SLEEP. HAS BEEN ON VAPOTHERM WITH SATS IN THE SEVENTIES FOR THE LAST 30 MINUTES. ATTEMPTED TO PUT HER BACK ON CPAP BUT SHE IS COUGHING FREQUENTLY AND NEEDING TO SPIT OUT SPUTUM FREQUENTLY. BELIEVES BREATHING IN THE STEAM FROM TEA WILL HELP. HELPED TO REPOSITION AND WILL WORK ON RELAXING AND BREATHING AND CALL ME WHEN SHE IS DONE DRINKING HER TEA TO TRY CPAP AGAIN.
--- NOTE | 2021-02-07 03:46 | NUR ---
SATS UP TO 84%, TRENDING UP.
--- NOTE | 2021-02-07 04:40 | NUR ---
SPO2 HAS BEEN TRENDING BACK DOWN, IN TO DO ASSESSMENT, GIVE PRN MEDS FOR PAIN/ANXIETY AND COUGH AND PLACE PT ON CPAP AND SHE WILL NOW TRY TO SLEEP AND SEE HOW LONG SHE CAN TOLERATE CPAP. SATS UP TO HIGH 80'S 90% ONCE ON CPAP.
--- NOTE | 2021-02-07 06:46 | NUR ---
PT HAS CONTINUED TO WEAR CPAP, APPEARS TO BE RESTFUL AND SLEEPING WITH SATS NOW UP TO 90-92%.
--- NOTE | 2021-02-07 07:55 | NUR ---
FIO2 INCREASED TO 100% ON CPAP TO RECOVER SPO2 ARNEL WELL. BBS TUBULAR THROUGHOUT WITH RALES IN THE POSTERIOR BASES.
--- NOTE | 2021-02-07 08:30 | NUR ---
PATIENT REPORTS IMMEDIATELY THAT SHE DIDN'T HAVE A GOOD NIGHT SLEEPING. PT STATES SHE FELT LIKE SHE WAS COUGHING ALL NIGHT LONG. TAKEN OFF CPAP AND ONTO VAPOTHERM. PT VISIBLY MORE ANXIOUS THIS AM. SP02 DROPS FAIRLY QUICKLY, ABOUT 5 MINUTES, DOWN TO 60s. THIS IS MUCH QUICKER DROPPING THAT SHE HAD BEEN DROPPING THE LAST COUPLE OF DAYS. BACK ON CPAP AND LAYING ON LEFT SIDE WITH CPAP AT 100%, THEN DOWN TO 90 AND THEN 85%. CURRENTLY PT LAYING ON LEFT SIDE WITH SP02 96%. RR ALSO MORE ELEVATED AT 29-32 TODAY. CRACKLES IN BASES. NOT HAVING PT EAT BREAKFAST AT THIS TIME. DR. OATES GIVEN THIS UPDATE. PT WANTING SOMETHING AT NIGHT TO HELP HER SLEEP.
--- NOTE | 2021-02-07 09:45 | NUR ---
IN PATIENT'S ROOM TO DELIVER HER NEW PHONE PIGMENT MIXER. PT REPORTS CONTINUED SPUTUM PRODUCTION. PT RESTING, WATCHING TV SHOWS ON HER PHONE. RR 27, SP02 97% ON 85% CPAP. TURNED DOWN TO 80%. PT WANTING SOMETHING FOR ANXIETY.
--- NOTE | 2021-02-07 10:15 | NUR ---
VISTARIL AND ROBITUSSIN GIVEN PRN FOR PAIN AND ANXIETY. PT ON 80% CPAP. CONTINUE TO MONITOR.
--- NOTE | 2021-02-07 12:16 | NUR ---
DR. OATES IN TO SEE PATIENT. NEW ORDERS TO BE REC'D. RT NOW IN ROOM. ASSESSMENT COMPLETE. PT STILL FEELING ANXIOUS. PT HAS WORN CPAP SINCE 0800 AND SP02 HAS BEEN SATISFACTORY WHILE ON 80% AND CPAP OF 14. PT STILL REPORTS LOTS OF COUGHING. CPT BEING GIVEN WELL NEB TX AT THIS TIME. IV LASIX GIVEN. PT GGIVEN LOTS OF POSITIVE ENCOURAGMENT SHE IS MORE DOWN ON HERSELF, NERVOUS, ANXIOUS, THAN SHE HAS BEEN THIS ENTIRE TIME. WILL CONTINUE TO MONITOR.
--- NOTE | 2021-02-07 15:01 | NUR ---
BED BATH GIVEN. PT DOWN TO 70% ON CPAP OF 14.
--- NOTE | 2021-02-07 16:45 | NUR ---
Update from Rn and RT. Pt now using CPAP 16 with 65%. Slight improvement.
--- NOTE | 2021-02-07 16:49 | NUR ---
DINNER ORDERED FOR PATIENT. PATIENT HAS BEEN ON CPAP SINCE 1500, AND AGREES TO WEAR IT UNTIL 1700. TOLD PATIENT THAT I DON'T WANT HER OFF THE CPAP FOR MORE THAN AN HOUR TO AVOID WEARING HERSELF OUT TOO MUCH AND HAVING HER SP02 TOO LOW. SP02 IS CURRENTLY 93-94% AND HR IN THE UPPER 90s-100s AT THIS TIME.
--- NOTE | 2021-02-07 17:59 | NUR ---
PATIENT SAT UP IN BED TO EAT. PRE-OXYENGATED AT 100% AFTER MOVEMENT. PT UP TO HIHER 90s BEFORE SWITCHIGN TO VAPOTHERM. PT NOW EATING. PT REPORTS FEELING BETTER THAN SHE DID THIS AM. PT'S HAIR BRAIDED. PT'S SOUP WAS TOO SPICY FOR HER TO EAT BUT SHE DID EAT THE JELLO AND FRUIT.
--- NOTE | 2021-02-07 19:12 | NUR ---
PATIENT OUT OF PRONE POSITION AND ONTO RIGTH SIDE. PT GIVEN PRN VISTARIL, TESSALON PERRLES AND ROBITUSSIN. PT THEN AGREEABLE TO WEAR CPAP FOR A COUPLE HRS, THEN WANTS TO TAKE A BREAK AND BRUSH HER TEETH. PT BREATHING ABOUT 24-27 NOW, INSTEAD OF 30s. REPORT TO SAFETY COUNSELOR.
--- NOTE | 2021-02-07 20:30 | NUR ---
SHIFT REPORT RECEIVED FROM AV TATUM. PT IS ALERT/ORIENTED, HAS FELT MORE STRESSED TODAY, SCHEDULE SEROQUEL GIVEN. REPORTS 4/10 LOW BACK PAIN, MOTRIN AND OXYCODONE GIVEN. LUNGS SOUND CLEAR WITH FINE CRACKLES NOTED IN LEFT BASE. CPAP AT 70%, PLACED ON VAPOTHERM 40L @100% FOR EVENING MEDS AND ORAL CARE. PT INITIALLY TOLERATED BEING OFF CPAP, BUT AFTER MEDS AND REPOSITIONING TO LEFT SIDE, SPO2 DROPPED TO 70'S. ATTEMPTED GO GIVE HER ~5 MINUTES TO RECOVER, BUT SPO2 STAYED AT ABOUT 75%. CPAP PLACED BACK ON PT AT 100%. BOWEL TONES ACTIVE, DENIES NAUSEA. AL PATENT, CATH CARE PROVIDED. MIDLINE IV DRESSING C/D/I, SMALL BRUISE NOTED ABOVE INSERTION SITE, OTHERWISE NO REDNESS, PAIN, OR SWELLING NOTED AT SITE. COULD NOT GET BLOOD RETURN AT THIS TIME, BUT IT FLUSHES WITHOUT PAIN OR RESISTANCE. PT DENIES FURTHER NEEDS AT THIS TIME, CALL LIGHT WITHIN REACH.
--- NOTE | 2021-02-07 22:33 | NUR ---
PT CONTINUES TO REST ON LEFT SIDE, APPEARS TO BE SLEEPING. FIO2 TITRATED TO 90% AT THIS TIME FOR SPO2 OF 98%.
--- NOTE | 2021-02-08 00:25 | NUR ---
ASSESSMENT COMPLETED. PT NOW POSITIONED SUPINE. FIO2 TITRATED TO 80% ON CPAP. BLOOD RETURN NOW PRESENT AND BRISK FROM MIDLINE IV. REMAINDER OF ASSESSMENT UNCHANGED. PT DENIES PAIN OR OTHER COMPLAINTS AT THIS TIME. CALL LIGHT WITHIN REACH.
--- NOTE | 2021-02-08 02:01 | NUR ---
PT REMAINS SUPINE, APPEARS TO BE SLEEPING. CPAP IN PLACE AT 80%, SPO2 CURRENTLY 95%.
--- NOTE | 2021-02-08 03:23 | NUR ---
PT CALLED TO REQUEST HOT TEA AND LEFTOVER FRUIT. PT ALSO REQUESTS COUGH AND PAIN MEDICINE FOR 4/10 BACK PAIN. PRN TESSALON PERLES, MOTRIN, AND OXYCODONE GIVEN. PT ON VAPOTHERM 40L @100% FOR SNACK, SPO2 CURRENTLY 85%. AL EMPTIED. PT DENIES FURTHER REQUESTS AT THIS TIME. WILL CLOSELY MONITOR SPO2.
--- NOTE | 2021-02-08 04:13 | NUR ---
PT ON VAPOTHERM ABOUT 30 MINUTES UNTIL SPO2 DECREASED TO 78-82%, BACK ON CPAP OF 14 @100%. ASSESSMENT COMPLETED, UNCHANGED FROM PREVIOUS. BLOOD DRAWN FROM MIDLINE IV FOR MORNING LABS. FIO2 TITRATED TO 90% PRIOR TO LEAVING ROOM, SPO2 CURRENTLY 96%. PT DENIES FURTHER NEEDS, CALL LIGHT WITHIN REACH.
--- NOTE | 2021-02-08 05:53 | NUR ---
IN TO CHECK ON PT, DECREASED FIO2 TO 80%. PT DENIES COMPLAINTS OR NEEDS AT THIS TIME. AL EMPTIED. BREAKFAST ORDER RECEIVED.
--- NOTE | 2021-02-08 07:33 | NUR ---
REPORT RECEIVED FROM NIGHTSHIFT RN, WILL CONTINUE PLAN OF CARE.
--- NOTE | 2021-02-08 09:10 | NUR ---
THIS RN IN TO ASSESS PT AND ADMINISTER SCHEDULED MEDICATIONS. PT LAYING IN BED ON THE CPAP AT 14 AND 80%. PT ALERT AND ORIENTED X3 AND REPORTS NO PAIN OR SOB WHEN ASKED. MEDICATIONS ADMINISTERED (SEE MAR), NO SLIDING SCALE INSULIN NEEDED CBG WAS 130, PT STATED SHE ALSO DID NOT WANT TO TAKE THE [place] WHEN ASKED. RT THEN IN TO ASSESS PT AND DO CPT VIA A VEST. PT ASSESSED AT THIS TIME, LUNGS CLEAR IN UPPER BASES AND DIMINSIHED IN LOWER BASES. PT TURNED DOWN TO 65% FIO2 AT THIS TIME BY RT , PT SPO2 REMAININED AT 90% AT THIS TIME. MIDLINE FLUSHES AND IS SALINE LOCKED, SITE WNL. PT PREOXYGENATED AT THIS TIME AND STARTED EATING BREAKFAST AFTER CPT WAS COMPLETED. PT NOW SITTING UP IN BED, EATING BREAKFAST ON THE VAPOTHERM AT 40LPM 100% FIO2. SPO2 MAINTAINING IN THE 85% RANGE. PT REPORTS NO FURTHER NEEDS AT THIS TIME, CALL LIGHT IN REACH, BED IN LOWEST POSITION, WILL CONTINUE PLAN OF CARE.
--- NOTE | 2021-02-08 10:08 | NUR ---
RESPONDED TO PT CALL LIGHT, PT SITTING UP IN BED ON VAPOTHERM. PT STATED SHE WAS FINISHED EATING BREAKFAST AND NEEDED HELP PUTTING ON HER CPAP. THIS RN IN TO ASSIST PT WITH CPAP. PT INITIALLY ON 100% FIO2 HER SPO2 WAS IN THE 80% RANGE. PT DENIED ANY SOB WHEN ASKED. PT EVENTUALLY PLACED AT 70% FIO2 TO MAINTAIN SPO2 AT 90-92%. SCHEDULED MEDICATIONS ADMINISTERED AT THIS TIME. PT NOW IN BED LAYING ON HER SIDE, PT REPORTS NO FURTHER NEEDS WHEN ASKED, WILL CONTINUE PLAN OF CARE. CALL LIGHT IN REACH, BED IN LOWEST POSITION.
--- NOTE | 2021-02-08 12:14 | NUR ---
THIS RN IN TO ASSESS PT AND CHECK CBG. PT LAYING IN BED ON THE CPAP AT THIS TIME ON 80% FIO2 AWAKE AND ALERT. PT TURNED DOWN TO 70% FIO2 SATURATIONS WERE IN THE UPPER 90%. CBG ASSESSED AND WAS 210, WILL ADMINISTER INSULIN WHEN PT'S MEAL ARRIVES. PRN MAALOX ADMINISTERED PT STATED HER STOMACH WAS "UPSET" AND BOTHERING HER. AFTERWARDS PT ASSISTED INTO PRONE POSITION AND THEN SWITCHED FROM THE CPAP TO THE VAPOTHERM AT 40LPM, 100% FIO2. PT NOW PRONING ON THE VAPOTHERM SPO2 MAINTINING AT 85-90% RANGE. PT REPORTS NO FURTHER NEEDS AT THIS TIME, WILL CONTINUE PLAN OF CARE AND ADMINISTER INSULIN WITH MEAL. CALL LIGHT IN REACH, BED IN LOWEST POSITION.
--- NOTE | 2021-02-08 12:40 | NUR ---
THIS RN IN TO ADMINISTER SCHEDULED INSULIN AND BRING PT HER LUNCH. PT PRONING AT THIS TIME ON THE VAPOTHERM AT 40LPM, SPO2 AT 88-90%. SCHEDULED INSULIN ADMINISTERED PER ORDERS AND SLIDING SCALE. PT REPOSITIONED ONTO HER SIDE AND SAT UP TO EAT HER LUNCH. PT NOW EATING LUNCH ON THE VAPOTHERM, SPO2 MAINTAINING AT 85%, PT REPORTS NO SOB, NO PAIN, AND NO FURTHER NEEDS AT THIS TIME. WILL CONTINUE PLAN OF CARE. CALL LIGHT IN REACH, BED IN LOWEST POSITION.
--- NOTE | 2021-02-08 14:10 | NUR ---
RESPONDED TO PT CALL LIGHT, PT AWAKE AND ALERT ON THE VAPOTHERM AT 40LPM 100%. SPO2 AT 90-91% WHILE PRONING. PT STATED SHE WAS HAVING SOME LOWER BACK PAIN 5/10, PRN OXYCODONE ADMINISTERED AT THIS TIME. PT THEN REPOSITIONED ONTO HER LEFT SIDE. NEW FOAM TAPE PLACED ON THE BRIDGE OF HER NOSE AND THE CPAP WAS PLACED BACK ON AT 70% FIO2. PT REPORTS NO FURTHER NEEDS AT THIS TIME AND IS NOW RESTING ON HER SIDE ON THE CPAP. SPO2 MAINTAINING AT 90-91%. CALL LIGHT IN REACH, BED IN LOWEST POSITION, WILL CONTINUE PLAN OF CARE.
--- NOTE | 2021-02-08 15:10 | NUR ---
RESPONDED TO PT CALL LIGHT, PT LAYING ON SIDE AT THIS TIME ON THE CPAP. PT STATED SHE WAS HAVING HIGH LEVELS OF ANXIETY. PRN VISTARIL ADMINISTERED FOR ANXIETY (SEE MAR). PT REPORTS NO FURTHER NEEDS WHEN ASKED AT THIS TIME, WILL CONTINUE PLAN OF CARE. CALL LIGHT IN REACH, BED IN LOWEST POSITION, CPAP LEFT ON PREVIOUS SETTINGS AT 70% FIO2, SPO2 MAINTAINING AT 92-94%.
--- NOTE | 2021-02-08 17:25 | NUR ---
THIS RN IN TO ASSESS PT AND ADMINISTER SCHEDULED MEDICATIONS. PT LAYING IN BED AWAKE AND ALERT ON THE CPAP AT 70% FIO2, SPO2 AT 92-94% RANGE. PT DENIES SOB AT THIS TIME AND DENIES HAVING ANY PAIN AT THIS TIME. SCHEDULED MEDICATIONS ADMINISTERED AT THIS TIME, TOTAL OF 8 UNITS OF INSULIN ADMINISTERED PER ORDERS AND SLIDING SCALE (SEE MAR). RT IN TO ASSESS PT AT THIS TIME. PT CHANGED OVER TO A NASAL CPAP MASK AT THIS TIME BY THE RT, FIO2 LEFT AT 70%, PT INSTRUCTED BY RT ON NOT EATING OR DRINKING WITH MASK AND BREATHING THROUGH THE NOSE AND KEEPING THE MOUTH CLOSED FOR EFFECTIVENESS. PT SPO2 MAINTAINING AT 92% WITH NASAL CPAP MASK. PT DINNER ARRIVED AFTERWARDS, PT PLACED ON VAPOTHERM AT 40LPM, 100% FIO2. PT NOW EATING DINNER SITTING UP IN BED. SPO2 MAINTAINING IN THE 85-90% RANGE. PT REPORTS NO FURTHER NEEDS AT THIS TIME, CALL LIGHT IN REACH, BED IN LOWEST POSITION, WILL CONTINUE PLAN OF CARE.
--- NOTE | 2021-02-08 17:50 | NUR ---
THIS RN IN TO CHECK ON PT. AWAKE AND ALERT ON VAPOTHERM AT SP02 AT 85%. PT STATES SHE IS FINISHED EATING DINNER. PT PLACED BACK ON NASAL CPAP AT THIS TIME ON 70% FIO2. SPO2 AT 92-94%. PT REPORTS NO FURTHER NEEDS AT THIS TIME WHEN ASKED, AND IS RESTING IN BED. CALL LIGHT IN REACH, BED IN LOWEST POSITION, WILL CONTINUE PLAN OF CARE.
--- NOTE | 2021-02-08 20:40 | NUR ---
SHIFT REPORT RECEIVED FROM [facility]. PT IS ALERT/ORIENTED. PRN MOTRIN AND OXYCODONE GIVEN FOR 4/10 LOW BACK PAIN. PT SOMEWHAT ANXIOUS, PRN VISTARIL AND SCHEDULED SEROQUEL GIVEN. NASAL CPAP IN PLACE AT 100%, LUNGS CLEAR WITH FINE CRACKLES IN BASES. HR REGULAR, RATE LOW 100'S. BOWEL TONES ACTIVE, DENIES NAUSEA. AL PATENT, CATH CARE PROVIDED. SKIN GROSSLY INTACT WITHOUT EDEMA, BRUISES NOTED TO ABDOMEN FROM LOVENOX INJECTIONS. MIDLINE IV DOES NOT HAVE BLOOD RETURN AT THIS TIME, FLUSHES WITHOUT RESISTANCE OR PAIN; NO SWELLING, REDNESS, OR PAIN AT SITE, SMALL BRUISE NOTED ABOVE INSERTION SITE. PT PROVIDED OWN ORAL CARE. NO REQUESTS AT THIS TIME, PT WILL CALL WHEN SHE IS READY TO SLEEP SO THAT WE CAN SWITCH CPAP TO FACE MASK. CALL LIGHT WITHIN REACH.
--- NOTE | 2021-02-08 22:30 | NUR ---
PT CALLED TO SAY SHE WAS READY TO SLEEP. R.T. CALLED TO SWITCH CPAP NASAL MASK TO FACE MASK. FIO2 TITRATED TO 80% AT THIS TIME WELL.
--- NOTE | 2021-02-09 00:16 | NUR ---
PT SLEEPING ON LEFT SIDE, CPAP IN PLACE, FIO2 TITRATED TO 70%. PT DOES NOT APPEAR TO BE IN ANY DISTRESS. AL PATENT, DRAINING FREELY. WILL ALLOW FOR REST AT THIS TIME AND CONTINUE TO MONITOR.
--- NOTE | 2021-02-09 02:26 | NUR ---
PT CONTINUES TO REST IN BED, HAS REPOSITIONED HERSELF TO SUPINE. CPAP REMAINS IN PLACE AT 70%. SPO2:90%.
--- NOTE | 2021-02-09 04:45 | NUR ---
ASSESSMENT COMPLETED, UNCHANGED FROM PREVIOUS. ATTEMPTED TO DRAW BLOOD FOR LABS FROM MIDLINE IV. ABLE TO GET BLOOD-TINGED RETURN, BUT NOT SUFFICIENT FOR LABS. ABLE TO DRAW LABS FROM LEFT AC ON FIRST ATTEMPT, PT TOLERATED WELL. CPAP FIO2 INCREASED TO 80% FOR SPO2 OF 88-90%. AL EMPTIED. PT DENIES FURTHER NEEDS, CALL LIGHT WITHIN REACH.
--- NOTE | 2021-02-09 06:43 | NUR ---
IN TO CHECK ON PT WHO STATES SHE IS DOING WELL. CPAP REMAINS IN PLACE AT 80%. AL EMPTIED. BREAKFAST ORDER RECEIVED AND CALLED TO KITCH[facility].
--- NOTE | 2021-02-09 07:35 | NUR ---
REPORT RECEIVED FROM [facility]. PT IS SITTING UP IN BED WEARING CPAP WITH LARGE FACE MASK WITH SPO2 90'S. DENIES NEEDS AT THIS TIME, AWAITING BREAKFAST.
--- NOTE | 2021-02-09 07:45 | NUR ---
IN TO AM ASSESSMENT AND AM MEDS. PT HAD TRIED TO SWITCH FROM CPAP TO VAPOTHERM IN ORDER TO EAT BREAKFAST, VAPOTHERM WAS ON 40L/100% AND SATS QUICKLY DOWN TO 67%. PT WORKED ON FOCUSING TO DEEP BREATHE THROUGH HER NOSE, RELAX AND POSITIONING NASAL PRONGS TO INCREASE HER O2 SATS AND AFTER APPROX 15 MINUTES THE SATS REALLY DID NOT COME UP MUCH, PT STILL WORKING TO KEEP SATS AT 72-75%. EVENTUALLY PLACED PT BACK ON CPAP WITH NASAL PRONGS, SATS UP TO 90'S AFTER APPROX 5 MINUTES. PLAN TO SIT AND LET HER RECOVER AND THEN TRY AGAIN LATER FOR BREAKFAST. ASSESSMENT DONE, LUNGS WITH VERY FEW FINE CRACKLES HEARD IN THE BASES. PT HAS OCCASIONAL PRODUCTIVE SOUNDING COUGH. DENIES PAIN AT THIS TIME.
--- NOTE | 2021-02-09 08:05 | NUR ---
RT IN TO DO NEB TX, CPT AND THEN SWITCH PT OVER TO NASAL CPAP MASK.
--- NOTE | 2021-02-09 10:00 | NUR ---
PT HAS BEEN RESTING IN BED, CONT ON CPAP WITH NASAL PILLOW WITH SPO2 98-100% WITH FIO2 100%. AWAKE, WATCHING SHOWS, DENIES NEEDS.
--- NOTE | 2021-02-09 11:37 | NUR ---
RT IN TO CHECK ON PT.
--- NOTE | 2021-02-09 12:19 | NUR ---
IN TO CHECK ON PT, SHE IS SITTING UP IN BED WEARING THE CPAP WITH FIO2 65% AND SPO2 92%. STATES SHE WILL NOT TRY TO EAT LUNCH AT THIS TIME, DENIES PAIN/NEEDS. ASSESSMENT COMPLETED.
--- NOTE | 2021-02-09 14:00 | NUR ---
IN TO CHECK ON PT, SHE HAS BEEN TURNED ONTO LEFT SIDE WATCHING SHOWS, REMAINS ON CPAP WITH SPO2 92%. ASKED IF SHE HAS BEEN COUGHING AND NEEDS MORE COUGH SYRUP AND SHE STATES YES, DOSE OF ROBITUSSIN GIVEN.
--- NOTE | 2021-02-09 14:53 | NUR ---
PT. STATES SHE DROPPED HER PILL. WHITE TABLET ON THE FLOOR NEXT TO BED. SHE STATES SHE DID NOT TAKE HER XANAX EARLIER AND KEPT IT. WHEN THE CHIMNEY MECHANIC GOWNED UP TO GO IN THE ROOM, THE TABLET WAS NO LONGER ON THE FLOOR AND PT. STATED SHE THREW IT AWAY, BUT WAS NOT IN THE TRASHCAN. THIS NURSE TOLD PT. SHE COULD NOT HANG ON TO HER PILLS OR THE STAFF COULD NOT GIVE THEM TO HER ANYMORE.
--- NOTE | 2021-02-09 15:31 | NUR ---
PT RESTING IN BED, RIGHT SIDE, DENIES NEEDS AT THIS TIME
--- NOTE | 2021-02-09 15:43 | NUR ---
No change in plan for dc.
--- NOTE | 2021-02-09 16:29 | NUR ---
IN TO CHECK ON PT, DO ASSESSMENT. PT DENIES NEEDS. HAD PT SIT UP AND THEN TOOK SHEET OFF BED, HAD HER STAND BRIEFLY THEN SIT DOWN TO CHANGE LINENS AND SATS DOWN TO 80% ON CPAP, TURNED O2 UP TO 100% AND PT RECOVERS AFTER APPROX 5 MINUTES, FIO2 TURNED DOWN TO 80%. PT WIPED DOWN WITH BATH WIPES AND LEFT WITH WATCHING HER PHONE.
--- NOTE | 2021-02-09 17:50 | NUR ---
IN TO DISCUSS DINNER, PT HAS NOT EATEN YET TODAY BUT FEELS READY TO TRY SOME FOOD.
--- NOTE | 2021-02-09 18:36 | NUR ---
PT SITTING UP IN BED, ATE SOME BITES OF DINNER NOW RESTING ON CPAP.
--- NOTE | 2021-02-09 20:00 | NUR ---
SHIFT REPORT RECEIVED FROM [facility]. PT RESTING ON NASAL CPAP, LAYING ON RIGHT SIDE. DENIES NEEDS AT THIS TIME, CALL LIGHT WITHIN REACH.
--- NOTE | 2021-02-09 20:50 | NUR ---
ASSESSMENT COMPLETED. PT ALERT/ORIENTED, SOMEWHAT ANXIOUS, SEROQUEL AND VISTARIL GIVEN. MOTRIN AND OXYCODONE GIVEN FOR 4/10 LOW BACK PAIN. LUNGS CLEAR WITH FINE CRACKLES IN BASES, NASAL CPAP IN PLACE, FIO2 INCREASED TO 70%. HR REGULAR, SLIGHTLY TACHY 100-110. BOWEL TONES ACTIVE, DENIES NAUSEA. AL PATENT, CATH CARE PROVIDED. MIDLINE IV DRESSING CHANGED, NO BLOOD RETURN BUT FLUSHES WITHOUT RESISTANCE OR PAIN. PT DENIES NEEDS AT THIS TIME, CALL LIGHT WITHIN REACH.
--- NOTE | 2021-02-09 22:00 | NUR ---
PT CALLED AND IS READY FOR SLEEP. PRE-OXYGENATED WITH 100% FIO2 AND SWITCHED CPAP TO FACE MASK. FIO2 TITRATED BACK TO 70%. PT DENIES FURTHER NEEDS AT THIS TIME.
--- NOTE | 2021-02-09 23:03 | NUR ---
FIO2 INCREASED TO 80% FOR SPO2 88-89%. PT SLEEPING AT THIS TIME ON LEFT SIDE, DOES NOT APPEAR TO BE IN ANY DISTRESS.
--- NOTE | 2021-02-09 23:58 | NUR ---
PT CONTINUES TO SLEEP, POSITIONED ON LEFT SIDE. ABLE TO AUSCULTATE POSTERIOR LUNGS, REMAIN CLEAR IN UPPERS WITH FINE CRACKLES IN BASES. FIO2 TITRATED TO 75%. AL EMPTIED. WILL ALLOW FOR REST AND CONTINUE TO MONITOR.
--- NOTE | 2021-02-10 02:11 | NUR ---
PT HAS REPOSITIONED HERSELF SUPINE. APPEARS TO BE SLEEPING, NO APPARENT DISTRESS. CPAP REMAINS AT 75%. HR:70, SPO2:96%.
--- NOTE | 2021-02-10 05:00 | NUR ---
PT CALLED TO REQUEST MEDICATION, PRN ROBITUSSIN, VISTARIL, OXYCODONE, AND MOTRIN GIVEN. ASSESSMENT COMPLETED, UNCHANGED FROM PREVIOUS. FIO2 TITRATED TO 70% ON CPAP. PT DENIES FURTHER NEEDS AT THIS TIME, CALL LIGHT WITHIN REACH.
--- NOTE | 2021-02-10 07:40 | NUR ---
REPORT RECEIVED FROM [facility]. PT RESTING IN BED WITH EYES CLOSED, RESP EVEN AND UNLABORED, SPO2 93% PT WEARING CPAP.
--- NOTE | 2021-02-10 08:37 | NUR ---
RT IN TO WORK WITH PT
--- NOTE | 2021-02-10 08:45 | NUR ---
NASAL MASK PLACED AND FIT TO PROPER POSITION. PT INSTRUCTED NOT TO EAST OF DRINK WHILE USING AND TO LIMIT OPENING MOUTH TO MAINTAIN CPAP PRESSURE
--- NOTE | 2021-02-10 09:00 | NUR ---
IN TO DO AM ASSESSMENT AND MEDS. PT GIVEN COUGH MEDICINE PRN. LUNGS CLEAR, DIM IN BASES. PT HAS BEEN WEARING CPAP AT 65%. STATES SHE DOES NOT HAVE AN APPETITE AT THIS TIME AND DOES NOT WANT BREAKFAST.
--- NOTE | 2021-02-10 11:00 | NUR ---
PT HAD GONE INTO THE ROOM TO WORK WITH PT, STARTED WITH SOME BED EXERCISES AND THEN DID SIT/STAND WITH SOME STEPS, PT WAS ON CPAP 65%, FIO2 TURNED UP TO 100%. PT RECOVERED AFTER APPROX 10 MINUTES, BUT WAS VERY SOB AND SATS DOWN TO 80% WITH ACTIVITY. PT STATES SHE DOES NOT FEEL ABLE TO GET TO CHAIR AT THIS TIME, ASSISTED BACK INTO BED TO REST FOR NOW.
--- NOTE | 2021-02-10 12:00 | NUR ---
PATIENT REMAINS ON HIGH OXYGEN NEED. NO CHANGES TO DISCHARGE AT THIS TIME.
--- NOTE | 2021-02-10 16:24 | NUR ---
PT CALLS TO ASK FOR PAIN AND ANIETY MEDS, STATES SHE HAS A HEADACHE. PRN VISTARIL, OXYCODONE AND MOTRIN GIVEN. PT HAS JUST BEEN WORKING WITH RT AND IS STILL RECOVERING, ON CPAP 60% WITH SPO2 87%.
--- NOTE | 2021-02-10 17:58 | NUR ---
IN TO ASSIST PT WITH EATING, SWITCHED TO VAPOTHERM 40L/100% SATS DOWN RANGING FROM 80-85%.
--- NOTE | 2021-02-10 21:48 | NUR ---
PATIENT PROVIDED WITH EVENING MEDS AND PRN PAIN AND COUGH MEDS. PATIENT IN GOOD SPIRITS. ON VAPOTHERM FOR BRUSHING TEETH AND WASHING FACE. PATIENT DESATS TO MID 70'S ON MAX SETTINGS BUT DENIED FEELING SOB. BACK TO THE CPAP WITH NASAL MASK AT 70% Fi02. LUNG SOUNDS ARE CLEAR THROUGHOUT. PATIENT TAKING DEEP BREATHS. VS STABLE.
--- NOTE | 2021-02-11 00:42 | NUR ---
PATIENT ANXIOUS ABOUT HER COUGH. ENCOURAGED SIPS OF WATER. PATIENT HAD RECEIVED PRN COUGH MEDS AT . PATIENT CONTINUES TO HAVE INCREASED ANXIETY ABOUT HER COUGHING. PRN MEDS PROVIDED BY [facility] PER REQUEST BY THIS RN. PATIENT ABLE TO RELAX AND REST ON CPAP.
--- NOTE | 2021-02-11 02:00 | NUR ---
PATIENT SLEEPING SOUNDLY. TOLERATING CPAP AT 70% Fi02.
--- NOTE | 2021-02-11 06:00 | NUR ---
PATIENT SWITCHED TO NASAL MASK ON CPAP. REPORTS SLEEPING OKAY BUT CONTINUES TO COUGH. PRN MEDS PROVIDED. MORNING LABS DRAWN. VS STABLE. TOLERATING 65% Fi02. AL EMPTIED. PATIENT DENIED FURTHER NEEDS. CALL LIGHT IN REACH.
--- NOTE | 2021-02-11 07:34 | NUR ---
REPORT RECEIVED FROM NIGHTSHIFT RN, WILL CONTINUE PLAN OF CARE.
--- NOTE | 2021-02-11 08:44 | NUR ---
THIS RN IN TO ASSESS PT AND ADMINISTER SCHEDULED MEDICATIONS. PT LAYING IN BED ALERT AND ORIENTED ON THE CPAP AT 65% FIO2. SPO2 MAINTAINING IN THE 92-94% RANGE. PT DENIES SOB WHEN ASKED. PT STATES SHE IS HAVING LOWER BACK PAIN AND SOME THROAT SORENESS, PRN TYLENOL ADMINISTERED ALONG WITH SCHEDULED MEDICATIONS (SEE MAR). BLOOD SUGAR WAS 153, INSULIN ADMINISTERED ORDERED AND PER SLIDING SCALE. MIDLINE FLUSHES EASILY AND SITE IS WNL. PT ASSESSED AT THIS TIME WELL. PT REPORTS NO FURTHER NEEDS AND IS NOW EATING BREAKFAST WHILE ON THE VAPOTHERM AT 40LPM 100% FIO2, SPO2 MAINTAINING AT 85% RANGE. WILL CONTINUE PLAN OF CARE. CALL LIGHT IN REACH, BED IN LOWEST POSITION.
--- NOTE | 2021-02-11 09:05 | NUR ---
RESPONDED TO PT CALL LIGHT, PT SITTING IN BED EATING BREAKFAST ON THE VAPOTHERM, PT STATED SHE WAS BEGINNING TO FEEL VERY ANXIOUS AND ASKED FOR HER PRN MEDICATION. THIS RN IN TO ADMINISTER PRN VISTARIL. PT STATED HER ANXIETY BEGAN TO OCCUR WHILE EATING BREAKFAST. PT INSTRUCTED TO DO DEEP BREATHING AFTER ADMINISTERING MEDICATION AND PLACING HER BACK ON THE CPAP. PT NOW CALM AND WAS PLACED BACK ON THE VAPOTHERM TO FINISH HER BREAKFAST. PT REPORTS NO FURTHER NEEDS AT THIS TIME WHEN ASKED. CALL LIGHT IN REACH, BED IN LOWEST POSITION, WILL CONTINUE PLAN OF CARE.
--- NOTE | 2021-02-11 09:43 | NUR ---
THIS RN IN TO CHECK ON PT. PT ON VAPOTHERM AT THIS TIME AND STATED SHE WAS FINISHED EATING BREAKFAST. PT ENCOURAGED TO PRONE AT THIS TIME, PT STATED SHE WAS WILLING TO TRY IT. THIS RN IN TO ASSIST PT AND PRONING. PT PLACED ON CPAP TO MAINTAIN SPO2 LEVELS WHILE PRONING. PT ABLE TO PRONE WITHOUT ASSISTANCE, PT DESATURATED DURING ACTIVITY DOWN TO 88-90% ON 100% FIO2 ON THE CPAP BUT INCREASED AFTER RESTING. PT PLACED BACK ON VAPOTHERM ONCE SPO2 WAS AT 95%. PT NOW PRONING IN BED ON THE VAPOTHERM AT 40LPM 100% FIO2. SPO2 MAINTAINING AT 85-90%. PT REPORTS NO FURTHER NEEDS AT THIS TIME WHEN ASKED, WILL CONTINUE PLAN OF CARE. CALL LIGHT IN REACH, BED IN LOWEST POSITION.
--- NOTE | 2021-02-11 10:46 | NUR ---
PT STILL LAYING IN BED PRONING WITH THE VAPOTHERM ON AT 40LPM 100% FIO2. SPO2 MAINTAINING AT 85-90%. PT REPORTS NO NEEDS AT THIS TIME. CALL LIGHT IN REACH, BED IN LOWEST POSITION, WILL CONTINUE PLAN OF CARE.
--- NOTE | 2021-02-11 12:10 | NUR ---
RESPONDED TO PT CALL LIGHT, PT STATED SHE WAS FINISHED PRONING. PT AWAKE AND ALERT ON THE VAPOTHERM, SPO2 AT 90%. PT PLACED BACK ON THE CPAP AT 100% FIO2 WHILE PT WAS REPOSITIONING. IT WAS NOTED THAT THERE WAS LEAKAGE OF URINE FROM THE CATHETER ON THE BED. PT CLEANED AND WAS ABLE TO MOVE OVER TO THE BEDSIDE RECLINER. SPO2 MAINTAINED AT 90% DURING TRANSFER, HR ELEVATED TO 120'S DURING THIS TIME. PT DENIED SOB OR LIGHTHEADEDNESS. PT AL ASSESSED AND IS STILL DRAINING URINE AND INTACT. LINENS CHANGED AT THIS TIME. PT THEN ASSESSED, VITALS TAKEN, AND BLOOD SUGAR ASSESSEDD AND WAS 220. LUNCH BROUGHT TO PT AT THIS TIME AND INSULIN ADMINISTERED PER ORDERS/SLIDING SCALE (SEE MAR). PT NOW IN BEDSIDE RECLINER ON THE CPAP AT 65% FIO2, SPO2 MAINTAINING AT 90-92% RANGE. PT REPORTS NO FURTHER NEEDS AT THIS TIME, WILL CONTINUE PLAN OF CARE. CALL LIGHT IN REACH.
--- NOTE | 2021-02-11 12:22 | NUR ---
PHYSICAL THERAPY IN TO WORK WITH PT AT THIS TIME.
--- NOTE | 2021-02-11 13:21 | NUR ---
PT SITTING IN BEDSIDE RECLINER AT THIS TIME RESTING ON THE NASAL CPAP. SETTINGS LEFT UNCHANGED, SPO2 AT 92%, PT IN NO APPARENT DISTRESS AT THIS TIME AND WAS LEFT UNDISTURBED. WILL CONTINUE PLAN OF CARE. CALL LIGHT IN REACH.
--- NOTE | 2021-02-11 14:40 | NUR ---
RESPONDED TO PT CALL LIGHT, PT IN BEDSIDE RECLINER ON THE NASAL CPAP AWAKE AND ALERT. PT STATED SHE WAS HAVING A HEADACHE AND WANTED PRN MEDICATION. PT RATED HER HEADACHE 6-7/10. PRN OXYCODONE ADMINISTERED. PT THEN STATED SHE WANTED TO GET BACK TO THE BED AND PUT ON THE MASK FOR THE CPAP TO TAKE A NAP. PT ABLE TO GET ONTO BED WITH ONLY ASSISTANCE IN MANAGING CORDS, PT CHANGED OVER TO MASK FOR CPAP AND LEFT AT 65% FIO2. PT GIVEN PRN COUGHING MEDICATION AFTERWARDS PT STATED HER COUGHING HAD BEEN INCREASING WHILE SHE WAS RESTING ON THE RECLINER (SEE MAR). PT ALSO PROVIDED WITH A BIBLE PER HER REQUEST. PT NOW RESTING ON THE BED, MASK CPAP IN PLACE AT 65% FIO2, SPO2 AT 92%. PT READING THE BIBLE AT THIS TIME AND REPORTS NO FURTHER NEEDS WHEN ASKED, WILL CONTINUE PLAN OF CARE. CALL LIGHT IN REACH, BED IN LOWEST POSITION.
--- NOTE | 2021-02-11 14:43 | NUR ---
Called by the bartolome gleason at 1150 she had a PT asking for a bible and wanted to know if we had any to give away. I let her know that we did but that they were in a locked cabinet so I would be in to get it. She let me know which room PT was in. I gave the bible to PT's nurse and they were able to get it to her.
--- NOTE | 2021-02-11 18:20 | NUR ---
THIS RN IN TO ASSESS PT AND ASSESS BLOOD SUGAR. PT AWAKE AND ALERT ON THE CPAP AT 65%, SPO2 AT 92%. PT VITALS TAKEN AND PT ASSESSED.CBG THEN ASSESSED AND WAS 109, INSULIN HELD DUE TO BLOODSUGAR. METFORMIN ADMINISTERED ORDERED. PT DINNER BROUGHT TO HER AFTERWARDS, PT ABLE TO FINISH MOST OF HER DINNER BUT REQUIRED BREAKS. PT HAD TO BE PLACED ON THE CPAP AT 100% FIO2 TWICE DURING HER MEAL TO INCREASE HER SPO2 IT WOULD DROP BELOW 80%. PT ABLE TO EAT HER DINNER AND IS NOW RESTING IN BED ON THE NASAL CPAP AT 65% FIO2. SPO2 AT 90-92%. PT REPORTS NO FURTHER NEEDS AT THIS TIME WHEN ASKED, WILL CONTINUE PLAN OF CARE. CALL LIGHT IN REACH, BED IN LOWEST POSITION.
--- NOTE | 2021-02-11 18:44 | NUR ---
THIS RN IN TO INCREASE FIO2 ON CPAP. PT AWAKE AND ALERT ON CPAP AT 65% FIO2, SPO2 88%. FIO2 INCREASED TO 70% AT THIS TIME, SPO2 NOW MAINTAINING AT 91-92%. PT REPORTS NO SOB AND DENIES THE NEED FOR PAIN MEDICATION AT THIS TIME. PT REPORTS NO FURTHER NEEDS WHEN ASKED, CALL LIGHT IN REACH, BED IN LOWEST POSITION, WILL CONTINUE PLAN OF CARE.
--- NOTE | 2021-02-11 21:15 | NUR ---
PATIENT RESTING ON HER SIDE IN THE BED. PATIENT IS ANXIOUS AND CRYING SOME. FEELING HOT AND HOPELESS. PATIENT ALSO REPORTS PAIN IN HER BACK AND HER THROAT. PRN MEDS PROVIDED. DISCUSSED POSITION OPTIONS AND PATIENT REPORTS BEING UNCOMFORTABLE ON THE LARGE MASK AND WANTING TO LAY ON HER ABD. ASSISTED PATIENT TO TURN TO THE FULL PRONE POSITION. PATIENT TOLERATED WELL. FI02 AT 100% FOR ACTIVITY THEN TITRATED TO 80% Fi02. LUNG SOUNDS ARE CLEAR, RR 24-26. PATIENT HAS INCREASED SPUTUM PRODUCTION TODAY, BROWN IN COLOR. NO GI CONCERNS. AL CARE DONE. VS STABLE. ASSISTED PATIENT WITH PM CARES. CALL LIGHT IN REACH. PATIENT MUCH MORE CALM AT THIS TIME.
--- NOTE | 2021-02-11 22:57 | NUR ---
PATIENT TOLERATING PRONE POSITION WELL. RR 18. O2 SAT 97% ON 80% Fi02. TITRATED TO 65%. PATIENT REPORTS BEING COMFORTABLE AND DENIED ANY NEEDS.
--- NOTE | 2021-02-12 00:27 | NUR ---
patient tolerating prone position well. cpap 65% Fi02, with o2 sats 94%. Titrated to 55% Fi02. patient denied any needs. call light in reach.
--- NOTE | 2021-02-12 03:30 | NUR ---
PATIENT REQUEST A WARM BLANKET. ASSISTED TO TURN FROM THE PRONE POSIITON TO HER LEFT SIDE. PATIENT REPORTS SLEEPING WELL AND IS EXCITED THAT SHE FEELS RESTED. PATIENT DENIED FURTHER NEEDS. TOLERATING CPAP AT 55% Fi02 WHILE IN PRONE. TURNED TO 60% Fi02 AT THIS TIME.
--- NOTE | 2021-02-12 05:00 | NUR ---
PATIENT REQUEST COUGH MEDS, PROVIDED BY [facility]. PATIENT IS RESTING ON HER LEFT SIDE. NASAL CPAP IN PLACE. REPORTS FEELING WELL RESTED. AL EMPTIED. VS STABLE. TOLERATING 60% Fi02 ON NASAL CPAP.
--- NOTE | 2021-02-12 07:30 | NUR ---
REPORT RECEIVED FROM NIGHTSHIFT RN, WILL CONTINUE PLAN OF CARE.
--- NOTE | 2021-02-12 08:36 | NUR ---
THIS RN IN TO ASSESS PT AND ADMINISTER SCHEDULED MEDICATIONS. PT AWAKE AND ALERT ON THE NASAL CPAP AT 60% FIO2. PT SPO2 MAINTAINING AT 94%. PT DENIES ANY PAIN, ANXIETY, OR SHORTNESS OF BREATH AT THIS TIME. VITALS TAKEN AND PATIENT ASSESSED AT THIS TIME. BLOOD SUGAR TAKEN AND WAS 158. WILL ADMINISTER INSULIN WHEN BREAKFAST ARRIVES. PT REPORTS NO FURTHER NEEDS AT THIS TIME AND WAS LEFT ON THE NASAL CPAP. CALL LIGHT IN REACH, BED IN LOWEST POSITION, WILL CONTINUE PLAN OF CARE.
--- NOTE | 2021-02-12 09:15 | NUR ---
THIS RN IN TO BRING PT HER BREAKFAST AND ADMINISTER SCHEDULED INSULIN. PT AWAKE AND ALERT ON THE NASAL CPAP AT 60% FIO2. 3 UNITS GIVEN PER SLIDING SCALE, ADDITIONAL 5 UNITS OF ORDERED INSULIN HELD/NOT GIVEN DUE TO BLOOD SUGAR BEING 158. PT PLACED ON THE VAPOTHERM AT 40LPM 100% FIO2 IN ORDER TO EAT BREAKFAST. PT NOW EATING HER BREAKFAST WHILE ON THE VAPOTHERM, SPO2 MAINTAINING IN THE 88-91% AT THIS TIME. PT REPORTS NO FURTHER NEEDS AT THIS TIME AND IS EATING BREAKFAST ON THE VAPOTHERM. CALL LIGHT IN REACH, BED IN LOWEST POSITION, WILL CONTINUE PLAN OF CARE.
--- NOTE | 2021-02-12 09:51 | NUR ---
RESPONDED TO PT CALL LIGHT, PT STATED SHE WAS BEGINNING TO GET TIRED AND WANTED TO GO BACK ON THE NASAL CPAP. PT AWAKE AND ALERT ON THE VAPOTHERM AT THIS TIME AT 40LPM 100% FIO2. SPO2 NOTED TO BE 85-82%. PT PLACED BACK ON THE NASAL CPAP AT 60% FIO2. MORE WATER PROVIDED TO PT AT THIS TIME. PT NOW RESTING ON NASAL CPAP AT 91% SPO2. PT REPORTS NO FURTHER NEEDS WHEN ASKED, WILL CONTINUE PLAN OF CARE. CALL LIGHT IN REACH, BED IN LOWEST POSITION.
--- NOTE | 2021-02-12 11:05 | NUR ---
THIS RN IN TO CHECK ON PT, PT SPO2 HAD BEEN TRENDING DOWN AND WAS AT 87-88% ON 60% FIO2. PT AWAKE AND ALERT ON NASAL CPAP. FIO2 TITRATED UP TO 70% TO MAINTAIN SPO2 ABOVE 90%. PRN VISTARIL ALSO ADMINISTERED AT THIS TIME PT STATED SHE WAS FEELING AN INCREASE IN HER ANXIETY AND ASKED FOR IT. PT NOW RESTING ON SIDE WITH NASAL CPAP ON. PT REPORTS NO FURTHER NEEDS WHEN ASKED, CALL LIGHT IN REACH, BED IN LOWEST POSITION, CPAP AT 70%, SPO2 AT 91-92%.
--- NOTE | 2021-02-12 11:15 | NUR ---
DR. LAM NOTIFIED OF PT'S COMPLAINTS OF A SORE THROAT AND CONGESTION/ EAR FULLNESS. NEW ORDERS TO BE PLACED, WILL CONTINUE PLAN OF CARE.
--- NOTE | 2021-02-12 12:33 | NUR ---
THIS RN IN TO ASSESS PT AND CHECK BLOOD GLUCOSE. PT LAYING IN BED ON CPAP 70% FIO2. SPO2 90-91%. PT REPORTS NO PAIN AT THIS TIME WHEN ASKED AND DENIES SOB. ASSESSMENT COMPLETED AT THIS TIME, VITALS TAKEN. DR. LAM IN AT THIS TIME TO ASSESS PT AND UPDATE ON PLAN OF CARE. BLOOD GLUCOSE WAS 151, 3 UNITS OF INSULIN ADMINISTERED PER SLIDING SCALE, ORDER FOR ADDITIONAL 5 UNITS WAS HELD. PT STATES SHE STILL HAS A SORE THROAT BUT WOULD LIKE TO TAKE THE MEDICATION FOR IT AFTER HER LUNCH. PT PREOXYGENATED ON CPAP WITH 100% FIO2 AND THEN PLACED ON THE VAPOTHERM AT 40LPM AND 100% FIO2. PT NOW EATING LUNCH AT THIS TIME, SPO2 MAINTAINING IN THE 80-85% RANGE. PT REPORTS NO FURTHER NEEDS AT THIS TIME, WILL CONTINUE PLAN OF CARE. CALL LIGHT IN REACH, BED IN LOWEST POSITION.
--- NOTE | 2021-02-12 13:10 | NUR ---
THIS RN IN TO ADMINISTER SCHEDULED MEDICATION AND PRN LOZENGE. PT IN BED ON THE VAPOTHERM, SPO2 AT 80%. PT STATES SHE IS FINISHED EATING LUNCH AT THIS TIME. PT ABLE TO TAKE PO MEDICATIONS (SEE MAR). PT THEN PLACED BACK ON THE CPAP AND LEFT ON 75% FIO2 TO MAINTAIN SATURATIONS ABOVE 90% AT THIS TIME. PT REPORTS NO FURTHER NEEDS AT THIS TIME WHEN ASKED, WILL CONTINUE PLAN OF CARE. CALL LIGHT IN REACH, BED IN LOWEST POSITION.
--- NOTE | 2021-02-12 13:42 | NUR ---
PHYSICAL THERAPY IN ROOM WORKING WITH PATIENT AT THIS TIME.
--- NOTE | 2021-02-12 14:40 | NUR ---
PT CHECKED ON AT THIS TIME, PT LAYING IN BED ON 75% FIO2, SPO2 96%. PT AWAKE AND ALERT AND REPORTS NO NEEDS WHEN ASKED. PT LEFT UNDISTURBED AT THIS TIME. WILL CONTINUE PLAN OF CARE. CALL LIGHT IN REACH.
--- NOTE | 2021-02-12 15:35 | NUR ---
THIS RN IN TO CHECK ON PT, PT LAYING IN BED ON CPAP AT 75% FIO2. SPO2 AT 94%. PPT AWAKE AND ALERT ON HER PHONE AT THIS TIME. PT DINNER ORDER TAKEN. PT REPORTS NO FURTHER NEEDS AT THIS TIME WHEN ASKED, WILL CONTINUE PLAN OF CARE. CALL LIGHT IN REACH, BED IN LOWEST POSITION. WILL CONTINUE PLAN OF CARE.
--- NOTE | 2021-02-12 16:21 | NUR ---
THIS RN IN TO ASSESS PT AND ADMINISTER PRN COUGH MEDICATION. PT LAYING IN BED ON CPAP AT 75% FIO2, SPO2 AT 94%. PT ALERT AND ORIENTED. PRN ROBITUSSIN GIVEN (SEE AUG). PT FIO2 TITRATED DOWN TO 70% AT THIS TIME. PT ASSESSED, VITALS TAKEN. PT PROVIDED WITH ICE WATER. PT REPORTS NO FURTHER NEEDS AT THIS TIME WHEN ASKED. PT NOW LAYING ON HER RIGHT SIDE, CALL LIGHT IN REACH. SPO2 AT 91% ON 70% FIO2, WILL CONTINUE PLAN OF CARE.
--- NOTE | 2021-02-12 17:24 | NUR ---
THIS RN IN TO ASSESS BLOOD SUGAR AND ADMINISTER SCHEDULED MEDICATIONS. PT LAYING ON SIDE ON CPAP AT 70% FIO2, SPO2 92%. PT BLOOD SUGAR ASSESSED AND WAS 189, INSULIN ADMINISTERED PER SLIDING SCALE. ADDITIONAL 5 UNITS ORDERED HELD. SCHEDULED MEDICATIONS ADMINISTERED (SEE MAR) ALONG WITH PRN LOZENGE PT STATED HER THROAT WAS BEGINNING TO FEEL SORE. PT PREOXYGENATED AT THIS TIME WITH CPAP AND THEN PLACED ON VAPOTHERM AT 40LPM 100% FIO2 TO EAT HER DINNER. PT CURRENTLY EATING HER DINNER, SPO2 IN THE 80-85% RANGE. PT REPORTS NO FURTHER NEEDS AT THIS TIME, WILL CONTINUE PLAN OF CARE. CALL LIGHT IN REACH, BED IN LOWEST POSITION.
--- NOTE | 2021-02-12 18:55 | NUR ---
THIS RN IN TO CHECK ON PT, PT AWAKE AND ALERT BACK ON NASAL CPAP. PT HAD BEEN ON VAPOTHERM FOR ABOUT 1 HR, SPO2 MAINTAINING 80-90% RANGE AT THIS TIME. PT NOW BACK ON THE CPAP AT 75% FIO2, SPO2 NOW AT 93%. PT REPORTS NO FURTHER NEEDS WHEN ASKED AT THIS TIME AND FINISHED HER DINNER. CALL LIGHT IN REACH, BED IN LOWEST POSITION, WILL CONTINUE PLAN OF CARE.
--- NOTE | 2021-02-12 19:45 | NUR ---
SHIFT REPORT RECEIVED. PATIENT RESTING IN BED WATCHING TV. DENIES ANY NEEDS AT THIS TIME. TOLERATING CPAP AT 70% Fi02, O2 SAT 95%.
--- NOTE | 2021-02-12 21:30 | NUR ---
EVENING MEDS PROVIDED. PRN MEDS FOR COUGH, ANXIETY AND PAIN. PATIENT UP TO THE EDGE OF THE BED TO BRUSH HER TEETH. INCREASED SOB ABLE TO TOLERATE VAPOTHERM FOR ABOUT 10 MINS. PATIENT BACK TO CPAP. INTO THE PRONE POSITION. Fi02 TITRATED TO 60%. PATIENT TOLERATING WELL. LUNG SOUNDS ARE CLEARIN UPPER AND MID LOBES. FINE CRACKLES NOTED IN BRENDA BASES. PATIENT CONTINUES TO COUGH UP QUIROZ SPUTUM. AL DRAINING FREELY. SKIN ON BACK AND GLUTES IS RED AND WRINKLE RAYGOZA FROM THE BED, ALL BLANCHABLE. VS STABLE. CALL LIGHT IN REACH.
--- NOTE | 2021-02-13 00:42 | NUR ---
PATIENT CONTINUES TO TOLERATE PRONE POSITION. CPAP AT 60% Fi02. RR 22. O2 SAT 91%.
--- NOTE | 2021-02-13 03:45 | NUR ---
patient provided with prn cough meds. patient turned to her bed with hob elevated. cpap in place, tolerating 60% Fi02.
--- NOTE | 2021-02-13 06:27 | NUR ---
PATIENT REPORTS PAIN 7/10 IN HER THROAT, PRN MEDS PROVIDED. AL EMPTIED. PATIENT IN GOOD SPIRIRTS, REPORTS BEING TIRED BUT SLEEPING WELL. BREAKFAST ORDER RECEIVED. PATIENT DENIED FURTHER NEEDS. CALL LIGHT IN REACH.
--- NOTE | 2021-02-13 07:26 | NUR ---
REPORT RECEIVED FROM NIGHTSHIFT RN, WILL CONTINUE PLAN OF CARE.
--- NOTE | 2021-02-13 08:27 | NUR ---
IN TO ASSESS PT AND ADMINISTER SCHEDULED MEDICATIONS. PT LAYING IN BED ALERT AND ORIENTED ON THE NASAL CPAP AT 60% FIO2, SPO2 88-90%. PT DENIES SOB WHEN ASKED AT THIS TIME. PT STATES HER THROAT STILL HURTS AND RATES IT A 4/10. PRN MOTRIN ADMINISTERED ALONG WITH SCHEDULED MEDICATIONS (SEE MAR). 3 UNITS OF INSULIN GIVEN PER SLIDING SCALE. AL CARE DONE AT THIS TIME, VITALS TAKEN, PT ASSESSED. PT PLACED ON VAPOTHERM AT 40LPM 100% FIO2 TO EAT BREAKFAST. SPO2 MAINTAINING AT 80-85%. PT REPORTS NO FURTHER NEEDS AT THIS TIME, WILL CONTINUE PLAN OF CARE. CALL LIGHT IN REACH, BED IN LOWEST POSITION.
--- NOTE | 2021-02-13 09:40 | NUR ---
PHYSICAL THERAPY IN ROOM WORKING WITH PT AT THIS TIME.
--- NOTE | 2021-02-13 12:03 | NUR ---
DR. LAM IN TO ASSESS PT AND UPDATE ON PLAN OF CARE. PT AGREEABLE TO DC AL. PT PUT BACK ON CPAP AFTEWARDS DUE TO SPO2 MAINTAINING BELOW 85%. PT PLACED ON 75% SPO2 INITIALLY TO MAINTAIN SPO2 ABOVE 90%. PT VITALS TAKEN AND PT ASSESSED. PT STATES SHE WOULD LIKE TO WAIT TO REMOVE THE AL CATHETER UNTIL AFTER LUNCH SHE WOULD LIKE TO "MENTALLY PREPARE FOR IT". PT ASSISTED OVER TO BEDSIDE RECLINER AT THIS TIME. PT NEEDED INCREASED FIO2 FOR ACTIVITY BUT WAS ABLE TO DO SO WITH MINIMAL ASSISTANCE AND WIRE MANAGEMENT. PT ASSISTED WITH A BEDBATH AT THIS TIME AND LINENS CHANGED. PT THEN TITRATED DOWN TO 70% ON THE NASAL CPAP, SPO2 AT 91%. BLOOD SUGAR ASSESSED AND PT GIVEN 5 UNITS OF INSULIN PER SLIDING SCALE (SEE MAR). PT THEN PLACED ON VAPOTHERM AT 40LPM 100% FIO2 TO EAT HER LUNCH AT THE BEDSIDE RECLINER. PT REPORTS NO FURTHER NEEDS AT THIS TIME, CALL LIGHT IN REACH, SPO2 MAINTAINING AT 85%. WILL CONTINUE PLAN OF CARE.
--- NOTE | 2021-02-13 12:15 | NUR ---
RESPONDED TO PT CALL LIGHT. PT STATED SHE WAS HAVING A BLOODY NOSE. PT INSTRUCTED TO PUT PRESSURE ON SIDE OF NOSTRIL. BLEEDING STOPPED SHORTLY AFTER, PT ASSISTED IN CLEANING NOSE AND VAPOTHERM. PT NOW BACK TO EATING HER LUNCH AT THE BEDSIDE RECLINER, VAPOTHERM ON AT PREVIOUS SETTINGS. PT REPORTS NO FURTHER NEEDS, WILL CONTINUE PLAN OF CARE. CALL LIGHT IN REACH.
--- NOTE | 2021-02-13 13:00 | NUR ---
PATIENT DOING SLIGHTLY BETTER ACCORDING TO STAFF. REMAINS ON HF OXYGEN. NO CHANGES AT THIS TIME.
--- NOTE | 2021-02-13 14:01 | NUR ---
Pt requesting cough drop, given losenge and Tessalon Perle for relief per prn med orders. Pt placed nasal cpap back on (switched self from Vapotherm in anticipation of PT coming in to work with her). Pt certified addiction counselor light, stating CPAP "doesn't feel right", "feels like I'm getting too much air and it's giving me a headache". Carlos from [facility] called, in to troubleshoot equipment with pt.
--- NOTE | 2021-02-13 14:37 | NUR ---
Physical therapy in working with patient.
--- NOTE | 2021-02-13 16:49 | NUR ---
RESPONDED TO PT CALL LIGHT PT STATED SHE WAS FEELING COLD AND WANTED A WARM BLANKET. WARM BLANKET PROVIDED TO PT AT THIS TIME. THIS RN ALSO IN TO ASSESS PT AND ADMINISTER PRN MEDICATION. PT STATED SHE WAS HAVING 6-7/10 PAIN IN HER THROAT. PRN MOTRIN, OXYCODONE, AND A LOZENGE ADMINISTERED ALONG WITH SCHEDULED NYSTATIN (SEE MAR). RT IN TO DO CPT ON PT AT THIS TIME. PT BLOOD SUGAR CHECKED AT THIS TIME AND WAS 158. WILL ADMINISTER INSULIN WHEN FOOD ARRIVES. PT ASKED IF SHE WANTED TO REMOVE THE AL AT THIS TIME, PT STATED SHE WANTED TO WAIT LONGER THERE WAS "TOO MUCH GOING ON" AND STATED SHE FELT OVERWHELMED FROM THE THROAT PAIN/SORENESS AND CPT. PT REPORTS NO FURTHER NEEDS AT THIS TIME WHEN ASKED AND IS ON THE NASAL CPAP AT 70% FIO2. WILL CONTINUE PLAN OF CARE. CALL LIGHT IN REACH, PT ON BEDSIDE RECLINER RESTING.
--- NOTE | 2021-02-13 17:28 | NUR ---
THIS RN IN TO ADMINISTER SCHEDULED MEDICATION AND TAKE VITALS. PT IN BEDSIDE RECLINER AT THIS TIME ON CPAP. CPAP TITRATED DOWN TO 65% FIO2 AT THIS TIME, SPO2 MAINTAINING AT 90-91%. SCHEDULED MEDICATION ADMINISTERED, 3 UNITS OF INSULIN ADMINISTERED PER SLIDING SCALE. VITALS TAKEN AT THIS TIME AXILLARY TEMPERATURE OF 102 NOTED. PT DENIES CHILLS AT THIS TIME WHEN ASKED BUT STATED SHE WAS FEELING COLD EARLIER BEFORE THE BLANKET WAS PROVIDED. PT PROVIDED WITH DINNER AT THIS TIME AND IS NOW ON THE VAPOTHERM AT 40LPM 100% FIO2 EATING HER DINNER. SPO2 MAINTAINING IN THE 85-90% RANGE. PT REPORTS NO FURTHER NEEDS, WILL CONTINUE PLAN OF CARE. CALL LIGHT WITHIN REACH.
--- NOTE | 2021-02-13 17:33 | NUR ---
DR. LAM UPDATED ON PT AND TEMPERATURE OF 102 AXILLARY. ORDERS GIVEN TO COLLECT A URINALYSIS. WILL CONTINUE PLAN OF CARE.
--- NOTE | 2021-02-13 18:04 | NUR ---
THIS RN IN TO COLLECT URINE SAMPLE FOR UA. PT SITTING IN BEDSIDE RECLINER ON THE VAPOTHERM EATING DINNER. PT SPO2 AT 89% AT THIS TIME, PT REPORTS NO SOB, AND STATES HER THROAT PAIN HAS IMPROVED. URINE SAMPLE COLLECTED FROM AL PORT AND SENT TO LAB. PRN TYLENOL ADMINISTERED AT THIS TIME WELL FOR FEVER. PT REPORTS NO FURTHER NEEDS AT THIS TIME AND IS NOW EATING ON THE VAPOTHERM. CALL LIGHT IN REACH. PT STATES SHE WOULD STILL LIKE TO WAIT TO REMOVE AL CATHETER UNTIL SHE IS FINISHED WITH DINNER.
--- NOTE | 2021-02-13 18:46 | NUR ---
THIS RN IN TO CHECK ON PT AND DC AL CATHETER. PT SITTING IN BEDSIDE RECLINER AWAKE AND ALERT ON VAPOTHERM. PT STATES SHE HAS FINISHED HER DINNER. WHEN ASKED IF SHE WAS WILLING TO REMOVE AL, PT STATED YES. AL REMOVED AT THIS TIME, CATHETER INTACT, PT TOLERATED REMOVAL WELL. PERICARE DONE BY PT. PT REPORTS NO FURTHER NEEDS AND IS BACK TO RESTING ON THE RECLINER. PT STATES HER PAIN HAS IMPROVED AND DENIES ANY SOB WHEN ASKED. CALL LIGHT IN REACH, WILL CONTINUE PLAN OF CARE.
--- NOTE | 2021-02-13 19:35 | NUR ---
REPORT RECEIVED FROM INES LEY. IN TO CHECK ON PT, PT SITTING IN CHAIR WEARING CPAP WITH CALL LIGHT IN HAND, DENIES NEEDS AT THIS TIME. HR 70'S, SPO2 92% ON CPAP AT 65%.
--- NOTE | 2021-02-13 21:15 | NUR ---
IN TO DO ASSESSMENT AND HS MEDS. PT HAS CONTINUED TO SIT IN THE CHAIR WATCHING TV, WEARING CPAP AT 14 AND 65%. LUNGS HAVE FEW CRACKLES IN THE BASES. PT STATES SHE HAD A BLOODY NOSE AND NOW HER SINUSES ARE BOTHERING HER FEELING DRY AND STUFFED UP AND ALSO STATES HER THROAT IS HURTING AND ASKS FOR PAIN MEDICINE WELL COUGH MEDICINE. PT ASSISTED WITH HS CARE, WASHING HER FACE AND BRUSHING HER TEETH WELL USING SALINE NASAL SPRAY TO MOISTEN UP SINUSES.
--- NOTE | 2021-02-13 23:29 | NUR ---
PT ASKED FOR HELP TO GET BACK TO BED. ASSESSMENT AND VS DONE. PT ASSISTED INTO PRONE POSITION IN BED, SWITCHED FROM CPAP TO VAPOTHERM 40L/100% AND SATS DIPPED QUICKLY WITH ACTIVITY TO 85% BUT QUICKLY WENT BACK UP TO 90-92% ON VAPOTHERM. CALL LIGHT IN HAND, PT WANTING TO TRY TO SLEEP FOR THE NIGHT.
--- NOTE | 2021-02-14 00:04 | NUR ---
PT O2 SATS DOWN TO 81-83% ON VAPOTHERM, RT IN TO SWITCH PT TP NASAL CPAP, SATS UP TO 90%.
--- NOTE | 2021-02-14 02:14 | NUR ---
PT CALLS FOR A WARM BLANKET. HAS BEEN WEARING CPAP 80% FIO2 WITH O2 SATS 99-100%, FIO2 TURNED DOWN TO 70%, SPO2 DOWN TO 95%. PT DENIES FURTHER NEEDS.
--- NOTE | 2021-02-14 04:20 | NUR ---
PT CALLS FOR MORE WATER, IN TO DO ASSESSMENT. PT WAS INC LARGE AMOUNT OF URINE, LINENES CHANGED. PT REQUESTS TO WEAR VAPOTHERM, PLACED ON VAPOTHERM AT 40L/100%, SATS REMAIN IN MID TO HIGH 80'S.
--- NOTE | 2021-02-14 06:00 | NUR ---
PT HAS BEEN WEARING THE VAPOTHERM A LITTLE OVER, AN HOUR, SATS MOSTLY HIGH 80'S, PT IS APPEARING ANXIOUS AND HAS INCREASED WORK OF BREATHING. PRN VISTARIL GIVEN AND PT SWITCHED BACK TO CPAP. SATS DROPPED WITH SWITCHING, DOWN TO 55% ON CPAP AND OVER APPROX 5 MINUTES SATS CAME BACK UP TO 90% AND PTS RESP LESS LABORED AND PT RELAXING MORE.
--- NOTE | 2021-02-14 07:45 | NUR ---
REPORT RECEIVED FROM AV MILLER. PT CURRENTLY ASLEEP WITH NASAL CPAP IN PLACE.
--- NOTE | 2021-02-14 08:28 | NUR ---
PT EXPERIENCEING DRIED SECRETIONS IN NARES. PT CONSENTED TO ADDING HUMIDITY TO NIMV TO HELP WITH NASAL DRYNESS. PRN SVN NOT INDICATED AT THIS TIME. NASAL MASK CHANGED TO FULL FACE.
--- NOTE | 2021-02-14 10:27 | NUR ---
ADMINISTERED MORNING MEDS, INCLUDING REQUESTED TYLENOL AND MOTRIN FOR SORE THROAT RATED 8\10. PT HAVING LARGE BLOODING NASAL DRAINAGE. SWITCHED TO FACE CPAP RATHER THAN NASAL. ADMINISTERED NASAL SPRAY AND HAD PT BLOW NOSE. STATES IT FEELS BETTER AND REPEATED SEVERAL TIMES. PT STILL DESATS QUICKLY WITH EVEN THAT SMALL ACTIVITY. ANXIOUS HAVING THE MASK OFF HER FACE FOR ANY LENGTH OF TIME. CHANGED LINEN AND DID BED BATH PT WAS INCONTINENT OF URINE. DECLINED BREAKFAST. PT ASKED SEVERAL TIMES HOW SHE REALLY IS DOING AND REASSURED HER. PT STATES SHE IS TIRED OF BEING HERE AND DOING THIS. PT ASKED FOR THIS RN TO STAY IN ROOM WITH HER FOR A BIT. READ A BOOK OUTLOUD TO PT.
--- NOTE | 2021-02-14 11:00 | NUR ---
CHANGED PT FROM VAPOTHERM BACK TO CPAP FULL FACE. PT LAYING ON STOMACH\SIDE. TOLERATED WELL.
--- NOTE | 2021-02-14 13:00 | NUR ---
PT FINISHED EATING HER TURKMEN FRIES AND SHERBERT. MUCH MORE ALERT NOW. OPENDED BLINDS IN ROOM.
--- NOTE | 2021-02-14 14:09 | NUR ---
PT LAYING UPRIGHT IN BED. SATS BETTER THAN THIS MORNING AT 97% WITH RR IN LOW 20'S. PT APPEARS TO BE SLEEPING. VAPOTHERM IN PLACE.
--- NOTE | 2021-02-14 14:15 | NUR ---
Update from RN, pt not feeling well and having a rough day.
--- NOTE | 2021-02-14 14:21 | NUR ---
PATIENT IS ON A 60 GM CONSISTENT CARB DIET. APPETITE IS FAIR. SHE OFTEN SKIPS BREAKFAST TO REST. FINISHED FIJIAN FRIES AND ORANGE SHERBET FOR LUNCH TODAY. SPOKE WITH LISA, PATIENT'S NURSE TODAY. I SUGGESTED OFFERING ENSURE TO PATIENT IF SHE CONSUMES LESS THAN 50% OF A MEAL. THE ENSURE WILL PROVIDE NOURISHING PROTEIN AND CALORIES THAT THE PATIENT NEEDS TO PREVENT MUSCLE CATABOLISM. WILL CONTINUE TO MONITOR.
--- NOTE | 2021-02-14 16:05 | NUR ---
PT SITTING UP IN BED ON VAPOTHERM SATTING LOW 90'S. SWITCHED BACK TO CPAP AND SIDE LAYING. DAPHNIE RT IN ROOM, TURNED UP FIO2 TO 85% PT SATTING 88% AFTRE SEVERAL MINUTES OF REST. TRIED OTHER SIDE TO NO AVAIL. BP SLIGHTLY ELEVATED AT 158 SYS.
--- NOTE | 2021-02-14 17:24 | NUR ---
PT CALLED TO SAY SHE WAS THIRSTY AND WANTED TO SIT UP IN BED STRAIGHTER. EXPLAINED TO HER THAT SHE CAN DO THINGS FOR HERSELF ALSO. SHE DID NOT SEEM TO UNDERSTAND AND STATED THAT SHE DID NOT KNOW SHE WAS ALLOWED TO. EXPLAINED THAT PART OF STAYING STRONG SHE NEEDS TO BE MOVING AROUND AND USING HER MUSCLES MUCH SHE CAN WHILE IN BED. EXPLAINED THAT WE WOULD START BLADDER TRAINING BY ASSISTING TO USE THE BEDPAN OR BSC EVERY COUPLE OF HOURS SO THAT SHE COULD GET BACK TO BASELINE, SHE WAS INCONTINENT IN BED AGAIN AND STATED THAT SHE DOESNT FEEL WHEN SHE NEEDS TO GO OR IF SHE IS HOLDING IT. ADMINISTERED SCHEDULED MEDS BUT DECLINED THE NYSTATIN AGAIN HER DINNER IS AT BEDSIDE.
--- NOTE | 2021-02-14 18:31 | NUR ---
PT UP TO BEDSIDE COMMODE FOR EXTRA LARGE BOWEL MOVEMENT. TOLERATED WELL UNTIL BACK INTO BED THEN DESATTED WITH SLOW RECOVERY. PT PLACED BACK ON CPAP, QUICKLY UP TO 90'S. DRANK ALL OF HER ENSURE MILK SHAKE.
--- NOTE | 2021-02-14 19:45 | NUR ---
PT RESTING IN BED, WEARING CPAP, SPO2 98%, RR 27. PT DENIES NEEDS, REPORT RECEIVED FROM LISA LEY.
--- NOTE | 2021-02-14 20:35 | NUR ---
IN TO GIVE HS MEDS AND DO ASSESSMENT. PT IS AWAKE, WATCHING TV WEARING CPAP WITH FACE MASK. ASKED IF SHE WANTS COUGH MEDICINE OR PAIN MEDICINE SHE STATES "YES ALL OF IT". LUNGS DIM, RR SLIGHTLY LABORED ON CPAP, RR 32. HR 112.
--- NOTE | 2021-02-14 22:23 | NUR ---
PT RESTING WITH EYES CLOSED ON CPAP, SPO2 97%, RESP RATE 28 AND RESTING HR 115.
--- NOTE | 2021-02-15 00:05 | NUR ---
IN TO DO VS AND ASSESSMENT, PT CONT TO WEAR CPAP, DENIES NEEDS AT THIS TIME.
--- NOTE | 2021-02-15 01:14 | NUR ---
PT CALLS TO REQUEST ANXIETY MEDICATION, 50MG VISTARIL GIVEN. PT DENIES FEELING SOB, REMAINS ON CPAP WITH SPO2 96%, RR 32, SLIGHTLY LABORED. RESTING HR REMAINS 110-115. AFEBRILE.
--- NOTE | 2021-02-15 02:30 | NUR ---
PT APPEARS TO BE SLEEPING, REMAINS ON CPAP, SPO2 95%, HR 110-115.
--- NOTE | 2021-02-15 06:05 | NUR ---
IN TO CHECK ON PT, SHE WAS SLEEPING BUT AWAKENS AFTER SAYING HER NAME A FEW TIMES, PT WAS INC LARGE AMOUNT OF URINE, STATES SHE DID NOT FEEL HERSELF AT ALL AND DID NOT HAVE ANY URGE TO VOID, ENCOURAGED HER TO TRY SITTIG ON A BEDPAN BUT SHE DOES NOT WANT TO AT THIS TIME. PT HAS REMAINED ON THE CPAP THROUGH THE NIGHT. STATES SHE WAS ABLE TO GO TO SLEEP AFTER SHE WAS GIVEN THE VISTARIL. RESTING HR 110-120. RR 26-30, SPO2 96%, RESPIRATIONS ARE SHORT AND APPEAR A LITTLE GASPING AT TIMES, WHEN ASKED PT STATES SHE DOES NOT FEEL SOB AT ALL. LINENES CHANGED AND PT WIPED DOWN, SHE IS DROWSY THROUGH THESE CARES BUT DOES TURN HERSELF WELL IN BED WHEN ASKED AND SATS STAY IN THE MID NINETIES.
--- NOTE | 2021-02-15 06:15 | NUR ---
FIO2 ON CPAP TURNED DOWN TO 60% PT'S OXYGEN SATURATIONS ARE 97%.
--- NOTE | 2021-02-15 06:55 | NUR ---
PTS HEART RATE NOTED TO GO FROM 112 DOWN TO 80'S QUICKLY, IN TO CHECK ON PT AND SHE IS JUST STARTING TO TAKE OFF CPAP MASK AND STATING "I FEEL LIKE I CANT BREATHE,"-HELPED HER PLACE MASK BACK IN PLACE AND ENCOURAGED HER TO TAKE LONG DEEP BREATHS, ALSO TURNED FIO2 UP FROM 60% TO 100%. IN THE FEW SECONDS THAT SHE REMOVED MASK HER SATS WENT DOWN TO 60'S, WITH MASK BACK ON AND FIO2 UP SHE GETS HER SATS QUICKLY BACK UP TO NINETIES, AND REPORTS FEELING LESS SOB. ALSO ONCE MASK BACK ON HEART RATE WENT BACK UP, UP TO 105-110.
--- NOTE | 2021-02-15 07:38 | NUR ---
REPORT RECEIVED FROM NIGHTSHIFT RN, WILL CONTINUE PLAN OF CARE.
--- NOTE | 2021-02-15 09:20 | NUR ---
THIS RN IN TO ASSESS PT AND ADMINISTER SCHEDULED MEDICATIONS, PT TITRATED UP FROM 55% FIO2 ON CPAP TO 70% FIO2 PT WAS DESATURATING IN THE 70% SPO2 RANGE. PT AWAKE AND ALERT IN BED AT THIS TIME AND DENIES SOB OR PAIN. PT STATES HER THROAT SORENESS/PAIN HAS IMPROVED. NO PRNS REQUESTED. SCHEDULED MEDICATION ADMINISTERED AT THIS TIME, 3 UNITS INSULIN ADMINISTERED PER SLIDING SCALE. [place] REFUSED BY PT WHEN ASKED. PT SPO2 MAINTAINING IN THE 95% RANGE WITH THE CPAP AT 70%. PT ASSESSED AT THIS TIME. LUNGS NOTED TO BE DIM IN ALL REGIONS WITH FINE CRACKLES IN BASES. PT ORIENTED BUT STATES SHE FEELS "SPACY" AND ASKED IF SHE WAS STILL ALIVE. PT ORIENTED TO SITUATION, PT NOTED TO HAVE DIFFERENT DEMEANOR AND BE MORE SHORT IN ANSWERING QUESTIONS THAN PREVIOUSLY. PT STATES SHE FEELS BETTER THAN BEFORE WHEN ASKED. PT PLACED ON VAPOTHERM AT 40LPM AND 100% FIO2 TO EAT BREAKFAST, PT THEN TITRATED DOWN TO 90% SPO2 REMAINED IN THE 98-99% RANGE. PT NOW EATING BREAKFAST AT 40LPM 90% FIO2, PT SPO2 REMAINS AT 93%. PT DENIES SOB AND IS NOW EATING. PT REPORTS NO FURTHER NEEDS WHEN ASKED, WILL CONTINUE PLAN OF CARE. CALL LIGHT IN REACH, BED IN LOWEST POSITION.
--- NOTE | 2021-02-15 11:19 | NUR ---
THIS RN IN TO CHECK ON PT. PT WORKING WITH PHYSICAL THERAPY AT THIS TIME, CPAP ON AT 70% BUT INCREASED TO 85% PT BEGAN TO DESAT WITH P.T AND STATED SHE WAS FEELING DIZZY. PT ALSO REPORTS SOB. PT ASSISTED BACK INTO BED BY PHYSICAL THERAPIST. IT WAS REPORTED THAT PT WAS INCONTINENT OF URINE, PAD CHANGED, PERICARE DONE BY THIS RN. PT FINISHED HER BREAKFAST AND WAS WILLING TO PRONE AT THIS TIME. PT ABLE TO PRONE ON HER OWN ON THE CPAP, FIO2 TITRATED TO 55% AFTER PT PRONED. PT REPORTS NO FURTHER NEEDS AT THIS TIME, WILL CONTINUE PLAN OF CARE. CALL LIGHT IN REACH, BED IN LOWEST POSITION. WILL CONTINUE PLAN OF CARE.
--- NOTE | 2021-02-15 12:56 | NUR ---
THIS RN IN TO ASSESS PT AND ADMINISTER SCHEDULED MEDICATIONS. PT LAYING IN BED PRONING ON THE CPAP WITH 55% FIO2. PT ABLE TO TURN BACK AROUND AND SIT UP TO EAT LUNCH. PRIOR TO EATING PRN PAIN AND COUGH MEDICATIONS ADMINISTERED DUE TO A SORE THROAT (SEE MAR), SCHEDULED MEDICATIONS ADMINISTERED WELL, 5 UNITS GIVEN PER SLIDING SCALE ALONG WITH AN ADDITIONAL 5 UNITS PER ORDERS. PT HAD AN EPISODE OF URINARY INCONTINENCE DURING THIS TIME, PERICARE DONE AND NEW LINENS PLACED. PT PLACED ON VAPOTHERM AT THIS TIME AT 40LPM AND 90% FIO2 AND TURNED DOWN TO 85% FIO2 SPO2 WAS MAINTIANING IN THE 95-100% RANGE. PT ASSESSED, VITALS TAKEN. PT NOW EATING LUNCH AT THE BED AND REPORTS NO FURTHER NEEDS, SPO2 REMANINING AT 96%. WILL CONTINUE PLAN OF CARE. CALL LIGHT IN REACH, BED IN LOWEST POSITION.
--- NOTE | 2021-02-15 14:00 | NUR ---
Update from Rn, pt unchanged. Updated and Rn I did speak with an [facility] and they are able to accept pts from [facility].
--- NOTE | 2021-02-15 15:26 | NUR ---
RESPONDED TO PT CALL LIGHT PT STATED SHE WAS FEELING LIKE SHE NEEDED "MORE OXYGEN". PT NOTED TO DESATURATE AT THIS TIME WHILE ON 15L HIGHFLOW NC TO 82%. PT INSTRUCTED TO TAKE DEEP BREATHS THROUGH HER NOSE. PT SPO2 INCREASED BACK UP TO 89%. PT PLACED BACK ON VAPOTHERM AT THIS TIME AT 40LPM 75% FIO2. PT SPO2 MAINTAINING AT 94%. PT REPORTS NO FURTHER NEEDS AND DENIES HAVING ANY MORE SOB AT THIS TIME. CALL LIGHT IN REACH, BED IN LOWEST POSITION, WILL CONTINUE PLAN OF CARE.
--- NOTE | 2021-02-15 16:00 | NUR ---
DR. LAM UPDATED ON PT'S ABG RESULTS, NEW ORDERS TO BE PLACED, R.T CONTACTED BY DR. LAM, WILL CONTINUE PLAN OF CARE.
--- NOTE | 2021-02-15 17:12 | NUR ---
ABG RESULTS REPORTED TO DR. LAM. MODE CHANGED TO BIPAP ARNEL SETTINGS WELL WOB OK.
--- NOTE | 2021-02-15 17:21 | NUR ---
PT TO CT VIA WHEELCHAIR WITH GEOSCIENCES PROFESSOR AND RN. PT TRANSPORTED ON TELEMETRY AND ON .
--- NOTE | 2021-02-15 17:30 | NUR ---
THIS RN IN TO DRAW VBG, ASSESS PT, AND ADMINISTER ORDERED MEDICATIONS. PT ON CPAP AT THIS TIME AT 75% SPO2 95%. PT NOTED TO BE MORE DROWSY AT THIS TIME BUT STILL RESPONDING TO VOICE, FOLLOWING COMMANDS, ANSWERING QUESTIONS APPROPRIATELY AND ORIENTED. VBG DRAWN AND SENT TO LAB. RT DAPHNIE IN TO CHANGE PT CPAP TO BIPAP. PT PLACED ON 50% FIO2 IPAP 18 EPAP 10, SPO2 NOW MAINTAINING AT 92%. PT ASSESSED, VITALS TAKEN. PT MEDICATIONS HELD AT THIS TIME DUE TO PT BEING DROWSY AND BEING PLACED ON BIPAP. INSULIN HELD PER SLIDING SCALE. PT REPORTS NO FURTHER NEEDS WHEN ASKED AND IS RESTING ON THE BIPAP. PT DENIES PAIN OR SHORTNESS OF BREATH AT THIS TIME. WILL CONTINUE PLAN OF CARE. CALL LIGHT IN REACH, BED IN LOWEST POSITION.
--- NOTE | 2021-02-15 19:05 | NUR ---
THIS RN IN TO CHECK ON PT AND DRAW VBG. PT LAYING IN BED ON THE BIPAP, SETTINGS UNCHANGED, FIO2 AT 50%, SPO2 AT 93%. PT REPORTS NO SHORTNESS OF BREATH AT THIS TIME. PT ALSO DENIES ANY PAIN AT THIS TIME. PT LESS DROWSY THEN BEFORE AND IS STILL ORIENTED, FOLLOWING COMMANDS, RESPONDING APPROPRIATELY. VBG DRAWN AND SENT TO LAB, PT TOLERATED LAB DRAW WELL. PT REPORTS NO NEEDS AT THIS TIME WHEN ASKED AND IS STILL ON THE BIPAP RESTING IN BED. WILL CONTINUE PLAN OF CARE. CALL LIGHT IN REACH, BED IN LOWEST POSITION.
--- NOTE | 2021-02-15 20:27 | NUR ---
PATIENT TOLERATING BIPAP 18/10, FIO2 50% Fi02. PATIENT DESATS WITH ANY MOVEMENT AND TAKES SEVERAL MINS TO RECOVER. RR 30-35. LUNG SOUNDS ARE CLEAR THROUGHOUT BUT TUBULAR. PATIENTIN INCONTINENT OF URINE. ORIENTED X4 BUT UNABLE TO HOLD ANY CONVERSATION, THINK IS OBVIOUSLY UNCLEAR. PATIENT FEELS WARM TO THE TOUCH BUT IS COLD. WARM BLANKETS PROVIDED. AXILLARY TEMP WNL. PATIENT REPORTS WANTING TO PRONE, IS NOT WANTING TO WEAR BIPAP MASK. ENCOURAGED PATIENT TO TRY LAYING ON HER LEFT SIDE AND KEEP BIPAP IN PLACE. PATIENT AGREEABLE.
--- NOTE | 2021-02-15 21:06 | NUR ---
IN PATIENT ROOM SEVERAL TIMES. PATIENT IS PICKING AT BEDDING AND RESTLESS. REPORTS PAIN ON INSPIRATION IN HER CHEST. DISCUSSED ELEVATED HR AND RR WITH AND THE PAIN. NO NEW ORDERS. RT CALLED TO ADJUST BIPAP PRESSURES.
--- NOTE | 2021-02-15 21:21 | NUR ---
PRESURE ON BIPAP TITRATED TO 16/8. PATIENT INCONTINENT OF URINE, RINA CARE DONE. ATTENDS CHANGED. LIMITED ORAL CARE DONE, CHAP STICK APPLIED. PATIENT IS ANXIOUS AND ASKING FOR HER ANXIETY MEDS. ENCOURAGED PATIENT TO REST.
--- NOTE | 2021-02-15 22:00 | NUR ---
PATIENT TOLERATED VAPOTHERM 40L 75% Fi02 FOR TAKING PILLS. PATIENT IS DROWSY BUT HOLDS CONVERSATION SOMEWHAT. DELIRIUM ASSESSMENT DONE. PATIENT SHOWS SIGNS OF DELIRIUM, UNABLE TO FOLLOW COMMANDS OR ADD SERIAL NUMBERS. PATIENT DENIED ANY NEEDS, REPORTS FEELING "OKAY". BACK TO BIPAP AT 50% Fi02, 13/02. CALL LIGHT IN REACH.
--- NOTE | 2021-02-16 01:21 | NUR ---
PATIENT BANGING HER WATER CUP ON THE BEDSIDE TABLE TO GET STAFF ATTENTION. BEDSIDE CALL BUTTONS WORKING. CALL LIGHT NEXT TO PATIENT'S HEAD. PATIENT REPORTS "I CAN'T BREATH" AND HAS BIPAP MASK PARTIALLY OFF. PATIENT SWITCHED TO VAPOTHERM 40L 75% Fi02. PATIENT IS ORIENTED TO SELF AND SUROUNDINGS BUT IS HAVING SIDE CONVERSATIONS WITH HERSELF OR POSSIBLY HALLUCINATIONS, DIFFICULT TO ASSESS. PATIENT IS ABLE TO FOLLOW SOME INSTRUCTIONS AND REPOSITION IN THE BED. HOB ELEVATED. ATTENDS CHANGED. PATIENT CONTINUES TO BE INCONTINENT OF URINE AND UNAWARE OF WETNESS. COUGHING UP CLEAR THICK SPUTUM. PATIENT PROVIDED WITH CALL LIGHT IN HER HAND. REPORTS EASIER BREATHING WITH VAPOTHERM.
--- NOTE | 2021-02-16 03:58 | NUR ---
PATIENT REPORTS DIFFICULTY CATCHING HER BREATH. BELIEVES IT IS RELATED TO HER COUGH AND SPUTUM PRODUCTION. SPUTUM IS CLEAR AND THICK. PRN COUGH MEDS PROVIDED. PATIENT IS DROWSY, TALKING BUT CLOSING HER EYES FREQUENTLY. SLIGHT SOB WHEN TALKING. O2 SATS 95% ON VAPOTHERM 40L 75% Fi02. PATIENT IS UNWILLING TO GO ON BIPAP AT THIS TIME, WANTS TO DRINK HER TEA. AGREES TO GO BACK TO BIPAP AFTER TEA OR IN 1 HOUR. CALL LIGHT IN HAND.
--- NOTE | 2021-02-16 06:45 | NUR ---
IN TO START IV AND DRAW LABS. pt AWAKE. ASKED IF SHE SLEPT "I DON'T KNOW" pt REPEATED QUESTIONS. IV STARTED, LABS DRAWN. SL. PERICARE DONE. SATURATED PERIPAD, FRESH PAD AND DEPENDS. pt ABLE TO FOLLOW COMMANDS, DID ASK WHAT WAS HAPPENING AFTER INITIAL EXPLAINATION. NO FURTHER REQUESTS. CALL LIGHT WITHIN REACH.
--- NOTE | 2021-02-16 12:30 | NUR ---
PT VITALS ARE ALL WNL AT THIS TIME. PT C/O 6/10 GENERALIZED PAIN, 5 MG PO OXY GIVEN. PT ALSO REPORTS ANXIETY, 50 MG PO VISTARIL GIVEN. PT IS ABLE TO DRINK ABOUT 1/2 OF AN ENSURE FOR LUNCH. PT HAD SPOUSE AT THE BEDSIDE EARLIER TO VISIT FOR ABOUT 1 HOUR. BOTH IV SITE AND MIDLINE ARE INTACT, NO REDNESS OR SWELLING NOTED, FLUIDS FLUSH EASILY, PT DENIES PAIN AT EITHER SITE. PT LINENS CHANGED AND RINA CARES DONE. PT HAD ONE LARGE INCONTINENT ATTEND FULL OF URINE. PT IS HELPFUL WITH ROLLING FROM SIDE TO SIDE.
--- NOTE | 2021-02-16 13:10 | NUR ---
Spoke with Rn, pt remains same status. Was able to see SO today.
--- NOTE | 2021-02-16 15:56 | NUR ---
PT GIVEN 2 MG IV MORPHINE FOR WOB.
--- NOTE | 2021-02-16 18:24 | NUR ---
DUE TO MULTIPLE FAMILY MEMBERS REQUESTING AN UPDATE, SPOKE WITH PT WHO STATES IT IS OKAY TO GIVE ANY FAMILY AN UPDATE IF THEY CALL.
--- NOTE | 2021-02-16 19:29 | NUR ---
report recieved, care of patient assumed at this time.
--- NOTE | 2021-02-16 21:00 | NUR ---
assessment completed. pt disoriented to time and date, but follows commands and oriented to self and place. discussed plan of care, pt agreeable and no questions asked at this time. pt compains of generalized pain and cough. will medicate with prn medication ( see emar). call light within reach. will continue to monitor.
--- NOTE | 2021-02-16 21:23 | NUR ---
AL INSERTED AT THIS TIME. WELL TOLERATED BY PATIENT, 1000 MLS OF FOUL SMELLING URINE FOR IMMEDIATE RETURN. SAMPLE SENT TO LAB
--- NOTE | 2021-02-16 21:53 | NUR ---
pt resting on bipap. spo2 = 98 percent at this time. IV abx infusing. pt has occasional cough. wakes to voice and then falls back to sleep. call light within reach. will continue to monitor.
--- NOTE | 2021-02-17 00:13 | NUR ---
ASSESSMENT COMPLETED. PT DROWSY, WAKES MOMENTARILY TO VOICE THEN FELL ASLEEP DURING ASSESSMENT. PT REMAINS ON BIPAP BREATHING EVEN BUT LABORED. RR=-24, SPO2 = 98% IV ABX INFUSING AT THIS TIME. CALL LIGHT WITHIN REACH. WILL CONTINUE TO MONITOR.
--- NOTE | 2021-02-17 03:23 | NUR ---
responded to patient call light. pt placed on vapotherm at this time 40l/75% spo2= 93%. Pt has crackles in both lung bases. pt turned from left to right side lying position. Pt speaking words, but meaning unkown. pt able to answer yes or no questions appropriately. IV abx infusing. call light within reach. will continue to closely monitor.
--- NOTE | 2021-02-17 05:32 | NUR ---
Pt heart rate was 110-120 and RR = 30 -35. given PRN morphine and cough medication (see emar). bipap settings fi02 =55%. heart rate now between 100-112 bpm. spo2 =99%, pt now resting more comfortably, call light within reach. denies further needs at this time.
--- NOTE | 2021-02-17 06:17 | NUR ---
IV ABX INFUSING.PT RESTING, MUMBLING INCOHERENT WORDS THROUGH BIPAP MASK. UNSUCCESSFUL AT BLOOD DRAW. FINISH ROLLS OPERATOR INFORMED.
--- NOTE | 2021-02-17 08:42 | NUR ---
PT WAKES EASILY TO VOICE. PT REPORTS THAT SHE IS HUNGRY FOR BREAKFAST. PT TRANSFERED TO VAPOTHERM 40L/65% FOR MEDS AND FOOD.
--- NOTE | 2021-02-17 09:05 | NUR ---
PT ABLE TO EAT 50% OF BREAKFAST. URINE OUT PUT IS GOOD. PT ASSISTED TO REPOSITION TO LEFT SIDE FOR SLEE LAYING MOSTLY FLAT. PT BACK ON BIPAP. ORAL CARE AND FACE WASHED. IV SITES ARE INTACT, FLUSH EASILY, PT DENIES PAIN AT EITHER SITE. VITALS ARE WNL. PT HAS CALL LIGHT WITHIN REACH.
--- NOTE | 2021-02-17 09:55 | NUR ---
SPOUSE IS AT THE BEDSIDE, PT SWITCHED FROM BIPAP TO VAPOTHERM. PT REPORTS SHE IS FEELING BETTER, PAIN IS 3/10.
--- NOTE | 2021-02-17 10:28 | NUR ---
VAPOTHERM TITRATED DOWN TO 35L/65% BY
--- NOTE | 2021-02-17 11:06 | NUR ---
PATIENT ABLE TO EAT BUT NEEDS SOME HELP PER NURSING SHE HAS SOME DELERIUM. SHE ATE 50% OF HER BREAKFAST WHICH WAS FROSTED FLAKES, MILK, AND FRUIT. SHE DID NOT DRINK HER HIGH PROTEIN ENSURE THIS MORNING. AV YOUSIF, STATES SHE DID DRINK ABOUT HALF OF THE ENSURE AT MEALS YESTERDAY. CONTINUE WITH PLAN TO PROVIDE ENSURE AT MEALS UNTIL HER PO INTAKE OF REAL FOOD (INCLUDING PROTEIN) IS OPTIMIZED.
--- NOTE | 2021-02-17 12:10 | NUR ---
VAPOTHERM TITRATED TO 30L/65% PT O2 SATS MAINTAINED AT MID TO UPPER 90'S
--- NOTE | 2021-02-17 12:46 | NUR ---
ORDERS RECIEVED TO IVONNE CONTI FOR POSSIBLE PICC INSERTION. AFTER REVIEWING THE CHART AND INTERVIEWING THE PATIENT, NO ABSOLUTE CONTRAINDICATION WERE FOUND. THE INDWELLING MIDLINE WAS REMOVED FROM THE RIGHT ARM AND SKIN BREAKDOWN NOTED AND ADDRESSED WITH THE PRIMARY NURSE. RISKS AND COMPLICATIONS OF PICC LINES WERE DISCUSSED WITH THE PATIENT AND INFORMED CONSENT SIGNED PRIOR TO THE START OF THE PROCEDURE. THE RISK OF INFECTION WAS HIGHLIGHTED WITH THIS PATIENT. THE RIGHT ARM IS NOT AN IDEAL INSERTION SITE FOR THIS PATIENT BECAUSE OF HER SKIN BREAKDOWN. THE LEFT BASILIC VEIN IS IDENTIFIED AT 2CM DEEP ON U/S AND SUITIBLE FOR A 5FR PICC INSERTION. THE VEIN WAS ACCESSED ON THE FIRST ATTEMPT AND THERE WERE NO ISSUES WITH ACCESS, GUIDEWIRE ADVANCEMENT, INTRODUCER, OR PICC ADVANCEMENT. THE MAGNET TRACKER WAS USED AND SHOWED THE TIP OF THE LINE IN A CENTRAL LOCATION. A STERILE DRESSING WAS APPLIED AND A CXR WAS TAKEN WHICH SHOWS THE TIP OF THE LINE IN A CENTRAL LOCATION. WE ARE AWAITING RADIOLOGY CONFIRMATION PRIOR TO USING THE LINE.
--- NOTE | 2021-02-17 13:00 | NUR ---
PT REQUESTS TO GO BACK ON CPAP AND OFF VAPOTHERM
--- NOTE | 2021-02-17 14:40 | NUR ---
PT OFF CPAP AND PLACED ON VAPOTHERM OF 30L/65%, ABLE TO ARNEL O2 SATS 90-95%.
--- NOTE | 2021-02-17 17:20 | NUR ---
PT ABLE TO EAT ABOUT 20% OF DINNER AND DRINK ONE ENSURE.
--- NOTE | 2021-02-17 18:11 | NUR ---
VAPOTHERM OFF, PT NOW ON CPAP OF 14 AT 55% PER HER REQUEST.
--- NOTE | 2021-02-17 19:14 | NUR ---
pt off cpap and on vapotherm of 28L/65% and talking on the phone with her .
--- NOTE | 2021-02-17 19:30 | NUR ---
REPORT RECEIEVED FROM BENJA LEY. IN TO CHECK ON PT, WEARING VAPOTHERM WITH SPO2 90%, DENIES NEEDS AT THIS TIME.
--- NOTE | 2021-02-17 20:40 | NUR ---
IN TO DO ASSESSMENT, HS MEDS. SATS HAD DROPPED TO 86-88% ON VAPOTHERM. PT SWITCHED TO CPAP 55% FIO2 AFTER HS MEDS TAKEN. PT DENIES PAIN/SOB. LUNGS CLEAR/DIM IN BASES.
--- NOTE | 2021-02-17 22:00 | NUR ---
IN TO HANG IV ABX, PT HAS BEEN RESTING WITH EYES CLOSED, AWAKENS WITH ACTIVITY. DENIES NEEDS.
--- NOTE | 2021-02-18 00:45 | NUR ---
IN TO DO ASSESSMENT, VS. PT DENIES NEEDS, ASSESSMENT UNCHANGED. REMAINS ON CPAP WITH FIO2 55%, SPO2 98%, RR 18 AND HR 90'S.
--- NOTE | 2021-02-18 02:00 | NUR ---
VANCO INFUSION STARTED. PT RESTING WITH EYES CLOSED, CONT TO WEAR CPAP WITH SPO2 98%.
--- NOTE | 2021-02-18 02:00 | NUR ---
pt resting with eyes closed. RR=20. SP02 = 100% IV fluids continue to infuse.
--- NOTE | 2021-02-18 04:05 | NUR ---
assessment completed. Pt repostioned in bed. IV fluids infusing per order (see emar). Pt continues to open eyes to voice and touch. occasionally groans and grimaces with repositioning.
--- NOTE | 2021-02-18 04:42 | NUR ---
IN TO DO ASSESSMENT, PT REMAINS ON CPAP, DENIES NEEDS, SPO2 99%, RR 18 HR 99.
--- NOTE | 2021-02-18 07:59 | NUR ---
PATIENT USES CALL LIGHT AND STATES SHE WANTS TO WAKE UP. HELPED PATIENT TO SIT UP MORE IN BED. PT ON CPAP AT 55% AND SETTING OF 14. PT REPORTS FEELING LABORED IN HER BREATHING. PT ALSO REPORTS FEELING COLD. AXILLARY TEMP OF 98.5 AT THIS TIME. BP 150/73 (94). PT BOOSTED IN BED.
--- NOTE | 2021-02-18 08:30 | NUR ---
PT GIVEN BREATHING TREATMENT PRN AT THIS TIME. RR STILL 26-30 ON CPAP. SP02 IS 98%. HR IN THE 100-110s. PT DENIES BEING COLD ANY LONGER. CONTINUE TO MONITOR CLOSELY.
--- NOTE | 2021-02-18 09:10 | NUR ---
PATIENT TAKEN OFF CPAP FOR A FEW MINUTES AND PLACED ON VAPOTHERM AT 75% AND 30L TO TRY AND GIVE PATIENT HER PILLS. PT SEEMS TO BE IN A FOG. PATIENT WILL ANSWER QUESTIONS, BUT QUICKLY LOSES FOCUS AND SEEMS TO DRIFT OFF, ALMOST BACK TO SLEEP OR A RESTING STATE. RR 30s OFF CPAP AND ON CPAP, BUT THE QUALITY AND DEPTH OF RR WHEN OFF CPAP SEEMS INADEQUATE. DR. PETTIT NOTIFIED AND BROUGHT TO BEDSIDE. PATIENT STILL WILL ANSWER QUESTIONS BUT AGAIN SEEMS QUICK TO FALL ASLEEP. PT GIVEN MEDS THAT ARE NOT ORAL AT THIS TIME AND ORAL MEDS TO BE HELD. SP02 IS 97% ON CPAP OF 14 AND 55%. WILL CONTINUE TO MONITOR CLOSELY.
--- NOTE | 2021-02-18 10:30 | NUR ---
PATIENT TAKEN OFF CPAP AND ON VAPOTHERM TO TRY AND SEE IF SHE CAN TAKE HER MORNING MEDS. PT ABLE TO TAKE SIPS OF WATER, BUT STILL SEEMS WITHDRAWN AND NOT QUITE FOLLOWING COMMANDS WELL AT THIS TIME. WHEN TALKING WITH PATIENT, SHE STILL QUICKLY DRIFTS BACK OFF TO EITHER RESTING OR STARING OFF BLANKLY. PATIENT MAINTAINING SP02 ADEQUATELY ON 65% AND 30L, AND RR STAYING ABOUT THE SAME BEFORE AROUND 30. WHEN TRYING TO HAVE PATIENT TAKE HER PILLS, SHE DIDN'T SEEM TO UNDERSTAND WHAT I WAS ATTEMPTING TO GET HER TO DO. AM PILLS HELD AT THIS TIME DUE OT SAFETY AND DR. PETTIT NOTIFIED OF THIS. PT RESTING. WILL CONTINUE TO MONITOR CLOSELY. AL CONTINUES TO DRAIN YELLOW URINE.
--- NOTE | 2021-02-18 11:28 | NUR ---
PATIENT BACK ON CPAP AT 1130 AND ALSO TURNED TO LEFT SIDE, AND POSITIONED WITH PILLOWS. PT UNABLE TO TAKE ANY OF HER ORAL MEDICATIONS. PT ALSO REPEATING WORDS THAT THIS RN IS SAYING.
--- NOTE | 2021-02-18 12:29 | NUR ---
OFF CPAP FOR ASSESSMENT AND VITALS. PT HELPED TO SIT UP. PT NOT ABLE TO ANSWER ANY QUESTIONS BUT DOES RESPOND TO HER NAME. GIVEN SMALL DRINK OF WATER BUT PATIENT SEEMS UNSURE WHAT EVEN THIS IS. AL EMPTIED. PT ON VAPOTHERM AT 25 L AND 50%. WILL MONITOR AND SEE HOW SHE DOES WITH THESE SETTINGS. SP02 IS 97%. PT SEEMS VERY WITHDRAWN OR HYPOACTIVE COMPARED TO HER BASELINE. HR IN THE 90s. CONTINUE TO MONITOR CLOSELY.
--- NOTE | 2021-02-18 13:10 | NUR ---
PT GIVEN BED BATH AND LINEN CHANGED. PT TOLERATED WELL. PT'S ON PHONE AND ENCOURAGED TO COME SEE PATIENT TODAY. PATIENT NOW SITTING UP AND INTERACTING MORE WITH HER THAN SHE HAS ALL DAY TODAY. RR 33 AT THIS TIME. PT ABLE TO TAKE SIPS OF WATER FROM HER BETTER WELL.
--- NOTE | 2021-02-18 16:52 | NUR ---
PATIENT'S SON HAS JUST LEFT FROM VISITING HER. RT HAD PREVIOUSLY PLACED PATIENT ON NASAL CPAP MASK INSTEAD OF FULL MASK AND PATIENT SEEMED TO LIKE THIS MASK. SP02 IS 97% ON 50% AT THIS TIME.
--- NOTE | 2021-02-18 18:00 | NUR ---
SIDDIQI PORT ON PICC IS MORE SLUGGISH AT RETURNING BLOOD. USING CATHFLO TO DECLOT THIS LINE AT THIS TIME. HELPING NOLANN EAT SOME BERRIES FOR DINNER. SHE IS UNABLE TO FEED HERSELF AT THIS TIME, BUT DOES SAY SHE WANTS THE FOOD AND EATS IT APPROPRIATELY. CONTINUE TO MONITOR.
--- NOTE | 2021-02-18 19:25 | NUR ---
PT STARTED YELLING OUT, "HELP ME, I CANT BREATHE!", IN TO CHECK ON PT, PT WEARING CPAP WITH SPO2 98%, RR 20, PT LOOKS ANXIOUS, REASSURED PT, HELPED HER RELAX AND FOCUS ON TAKING LONGER BREATHS, AND PT REPOSITIONED UP IN BED. PT CALMS AND RELAXES AND LIES BACK WITH CALL LIGHT IN HAND.
--- NOTE | 2021-02-18 20:45 | NUR ---
IN TO DO ASSESSMENT AND HS MEDS. PT HELPED TO REPOSITION IN BED. PT HAS BEEN WATCHING TV ON PHONE. SEEMS TO BE ORIENTED AT THIS TIME, ANSWERING QUESTIONS APPROPRIATLEY AT THIS TIME ALTHOUGH SHE DOES SEEM ANXIOUS REGARDING HOW SHE IS DOING.
--- NOTE | 2021-02-18 22:52 | NUR ---
PT RESTING WITH EYES CLOSED, WEARING CPAP, SPO2 97%, RR 28 AND HR 100, APPEARS RESTFUL, SLEEPING.
--- NOTE | 2021-02-18 23:34 | NUR ---
IN TO HANG VANCO AND DO ASSESSMENT. PT LYING AWAKE IN BED, ASKED IF SHE IS HAVING TROUBLE SLEEPING SHE STATES "MAYBE. HOW DO I KNOW?". PT ALSO STATES "CAN YOU STAY IN HERE WITH ME?". THIS RN IN TO SIT WITH PT,
--- NOTE | 2021-02-19 01:33 | NUR ---
PT RESTING IN BED WITH EYES CLOSED, WEARING CPAP, SPO2 99%, RR 24, HR 90'S.
--- NOTE | 2021-02-19 03:30 | NUR ---
IN AND OUT OF THE PTS ROOM SEVERAL TIMES OVER THE LAST COUPLE OF HOURS; PT HAS NOT APPEARED TO HAVE SLEPT, HAS EYES OPEN EVERY TIME THIS RN IN TO CHECK ON HER, DENIES NEEDS.
--- NOTE | 2021-02-19 04:30 | NUR ---
ASSESSMENT DONE, PT AWAKE IN BED. WHEN ASKED IF SHE HAS SLEPT AT ALL SHE STATES "I DONT KNOW". DENIES PAIN OR NEEDS, REMAINS ON CPAP FIO2 50%, RR 28 AND SPO2 98%, RESTING HR 90'S.
--- NOTE | 2021-02-19 06:33 | NUR ---
collins bennett,ptoed and scheduled med provided. tissues provided. no other needs. call light in reach.
--- NOTE | 2021-02-19 07:49 | NUR ---
REPORT REC'D FROM FAST FOOD SERVICES MANAGER AND PLAN OF CARE RESUMES AT THIS TIME.
--- NOTE | 2021-02-19 09:53 | NUR ---
PATIENT UP TO CHAIR ON VAPOTHERM AT 60% AND 30L. THIS WAS LATER TITRATED DOWN TO 50% AND 28L. PT STATES SHE IS FEELING SLIGHTLY ANXIOUS WITH THIS MOVEMENT, BUT ABLE TO TALK PATIENT THROUGH THIS AND DISCUSS HERPROGRESS. PT ATE 100% OF HER BREAKFAST. PT REPORTS HAVING A DECENT NIGHT OVERALL.
--- NOTE | 2021-02-19 11:09 | NUR ---
DR. PETTIT IN TO SEE PATIENT. PLAN IS FOR PATIENT TO TRANSITION TO MEDICAL FLOOR TODAY W/O TELEMETRY BUT WILL CONT PULSE OX MONITORING. PT BOTH EXCITED AND NERVOUS ABOUT THIS TRANSITION. PT STATES, "I DON'T KNOW HOW I FEEL ABOUT THIS. I UNDERSTAND IT, BUT I'M STILL NERVOUS ABOUT MY CARE. WILL THEY CHECK ON ME AT NIGHT?" EXPLAINED TO PATIENT THAT SHE WILL RECEIVE EXCELLENT CARE ON MED/SURG, AND THAT WE WORK A TEAM TOGETHER. PT EXCITED ABOUT THE POTENTIAL FOR SHOWERING AND MORE FREEDOM FROM MONITORS.
--- NOTE | 2021-02-19 12:24 | NUR ---
PHYS THERAPY IN TO WORK WITH PATIENT. PT DESATS WITH ACTIVITY TO LOW 80% WHILE ON 50% AND 28L. INCREASED UP TO 80% WHILE WORKING WITH PT. AL CATH REMOVED-PT TOLERATED WELL. ATTENDS IN PLACE. PATIENT THEN HAS TO HAVE A BM AND HAS A LARGE FORMED BM. PT THEN FEELING EXHAUSTED AND THAT EVERYTHING IS MOVING TOO FAST, THEREFORE HELPED PATIENT BACK TO BED AND NOW RESTING ON CPAP. PT HAS BEEN OFF CPAP SINCE AROUND 0830, SO IT'S A GOOD TIME FOR HER REST BEFORE LUNCH. PT NOW ON CPAP OF 14 AND 40% AND SP02 IS 95%. CONTINUE TO MONITOR. PT STILL TO TRANSITION TO MED/SURG LATER TODAY.
--- NOTE | 2021-02-19 16:00 | NUR ---
Pt arrives to med surg floor via bed. Report received from AV [place]. Pt alert and oriented, transfered to MS on nonrebreather mask which she tolerates well, back to nasal CPAP at this time. SPO2 95%. Assessment complete. Pt requests PRN medications for cough, administered along with scheduled IV ABX. Pt oriented to room, call light, tv, staff, etc. and has no questions. Ice water provided. All belongings in new room. Tele #[id number] for spo2 monitoring. Will continue plan of care.
--- NOTE | 2021-02-19 16:45 | NUR ---
In room to get dinner order, no other needs at this time, pt resting in bed watching tv. Call light in reach.
--- NOTE | 2021-02-19 17:15 | NUR ---
Call light answered, pt phone ringing, handed to her. No other needs. Pt tolerating CPAP well, spo2 93%, call light in reach.
--- NOTE | 2021-02-19 19:33 | NUR ---
SHIFT REPORT FROM NURSE BENAVIDES. PT IS RESTING WITH EYES CLOSED IN BED, CPAP ON. NO APPARENT SIGNS OF DISTRESS. CALL LIGHT WITHIN REACH
--- NOTE | 2021-02-19 21:30 | NUR ---
IN ROOM FOR EVENING MEDS AND VITALS. VSS. PT IS WEARING CPAP 14L O2, SPO2 IS 98%. CBG 119 NO SS INSULIN NEEDED. PT REQUEST WARM BLANKET WHICH IS PROVIDED. CALL LIGHT WITHIN REACH.
--- NOTE | 2021-02-19 22:50 | NUR ---
IN ROOM FOR EVENING ANTIBIOTICS. NEW IV PUMP HUNG, CEFEPIME AND VANCO INFUSING; 3RD LUMEN HEP LOCKED. PT REMAINS ON CPAP. PT REPORTS NO PAIN AT THIS TIME. PT IS VERY DROWSY AND KEEPS EYES CLOSED DURING SPEECH. PT REQUEST THAT WINDOW SHADE BE CLOSED. CALL LIGHT WITHIN REACH. NO FURTHER NEEDS AT THIS TIME.
--- NOTE | 2021-02-20 01:13 | NUR ---
IN ROOM VANCO IS FINISHED. HEP LOCKED LUMEN AFTER D/C VANCO LINE. PT IS SLEEPING. CPAP ON 14L AND 45%. SPO2 PER MONITOR 99%. WILL CONTINUE TO MONITOR
--- NOTE | 2021-02-20 02:31 | NUR ---
CALL LIGHT ANSWERED. PT REPORTS THAT SHE IS WET. CHUX PAD AND DEPENDS ARE WET WITH URINE. WITH HELP FROM ALEN STOVALL, CHUX CHANGED AND FRESH DEPENDS PUT ON. PT IS MORE TALKATIVE NOW AND THANKFUL. NO FURTHER NEEDS AT THIS TIME. CALL LIGHT WITHIN REACH.
--- NOTE | 2021-02-20 03:07 | NUR ---
CALL LIGHT ANSWERED. PT REQUESTS MEDICATION FOR BACK PAIN. PRN TYLENOL GIVEN TO PATIENT. PT REQUESTS "SOMETHING STRONGER" FOR PAIN. DR'S NOTES STATE THAT STRONGER MEDICATION WAS BEING HELD D/T PT'S CONFUSION. PT UNDERSTANDS, SETTLES FOR WARM BLANKET FOR HER BACK. CALL LIGHT WITHIN REACH.
--- NOTE | 2021-02-20 06:00 | NUR ---
IN ROOM FOR BLOOD DRAW AND ASSESSMENT. LUNG SOUNDS COARSE IN BASES, CMS INTACT, BOWEL TONES ACTIVE. PT REPORTS CONTINUED PAIN IN BACK; PT STATES SHE IS HOPING FOR "STRONGER PAIN MEDS TODAY". SPO2 98-100% ON 14L CPAP WITH 45% FI02. IV CEFEPIME HUNG. PT ASKS FOR FRESH WATER WHICH IS PROVIDED. PERSONAL ITEMS WITHIN REACH. CALL LIGHT WITHIN REACH.
--- NOTE | 2021-02-20 07:42 | NUR ---
REPORT RECIEVED FROM MELT DOWN FURNACE OPERATOR RNCECY.
--- NOTE | 2021-02-20 08:23 | NUR ---
MORNING ASSESSMENT DONE. PATIENT CONTINUES ON CPAP. ORAL ANTACID GIVEN, NO INSULIN FOR BG OF 133. PATIENT APPEARS TO BE RESTING COMFORTABLY. IV VANCO STARTED.
--- NOTE | 2021-02-20 09:00 | NUR ---
Spoke with Flakita and she states she is feeing better. Cont. on CPAP. Discussed with Dr. Morel this am in [phone] meeting possible needs for for DME on dc.
--- NOTE | 2021-02-20 10:18 | NUR ---
Patient vitals, I&Os are done. Patient would like a bed bath today. Patient has no requests at this time and the call light is in reach. The patient has not peed yet.
--- NOTE | 2021-02-20 10:47 | NUR ---
LEFT TRIPLE LUMEN PICC FLUSHED AND HEPARINIZED. PATIENT IS RESTING WELL, CURRENTLY ON 8L VAPOTHERM AND SEEMS TO BE TOLERATING IT WELL.
--- NOTE | 2021-02-20 11:54 | NUR ---
BLOOD GLUCOSE CHECK IS 154 PRIOR TO LUNCH. PLAN TO GIVE 3 UNITS OF INSULIN WITH MEAL.
--- NOTE | 2021-02-20 13:37 | NUR ---
PATIENT HAS IV CEFAPIME INFUSING FOR 4 HOURS. PATIENT INCONTINENT OF URINE AND NEW ATTENDS IN PLACE.
--- NOTE | 2021-02-20 13:49 | NUR ---
Pateint vitals, I&Os are done. Patient's breif was changed. Patient's call light is in reach. There are no requests at this time.
--- NOTE | 2021-02-20 17:04 | NUR ---
PATIENT WORKING WITH PHYSICAL THERAPY, UP TO COMMODE TO VOID AND CLEAN SELF.
--- NOTE | 2021-02-20 17:28 | NUR ---
Patient vitals, I&Os are complete. Patient is still eating dinner. Patients respirations were high, 40 Resp. and her BP was high, 156/100. Patient has no requests and call light is in reach. RN is notified.
--- NOTE | 2021-02-20 18:34 | NUR ---
PATIENT HAS DONE WELL TODAY, TRANSITIONING FROM CONTINUOUS CPAP TO 7L OF VAPOTHERM AT REST. PATIENT DID REQUIRE 9L OF VAPOTHERM FOR ACTIVITY OF GETTING UP TO COMMODE. PT AND OT TO SEE PATIENT AGAIN TOMORROW.
--- NOTE | 2021-02-20 19:05 | NUR ---
SHIFT REPORT FROM NURSE ROSADO. PT IS LAYING IN BED, SPO2 92-95% ON 7L HI FLOW NC. CALL LIGHT WITHIN REACH.
--- NOTE | 2021-02-20 19:56 | NUR ---
CALL LIGHT ANSWERED. IV PUMP ALARMING. PT REQUESTS TO BRUSH HER TEETH. ALL ITEMS PREPARED TO BRUSH TEETH. WILL CHECK BACK WITH PT. CALL LIGHT WITHIN REACH.
--- NOTE | 2021-02-20 20:15 | NUR ---
IN ROOM FOR 2000 MEDS. PT REQUESTS MAALOX FOR HEARTBURN. PT REMAINS ON HI FLOW 02 PER NC; APPEARS ANXIOUS BUT IS COOPERATIVE AND TALKATIVE. IV VANCO STILL INFUSING. CALL LIGHT WITHIN REACH.
--- NOTE | 2021-02-20 22:20 | NUR ---
PATIENT WET THE BED. ENCOURAGED TO GET UP TO THE BEDSIDE COMMODE. PATIENT DID VOID MORE. CHANGED BED LINEN. PUT FRESH UNDERWEAR AND RINA PAD.
--- NOTE | 2021-02-20 22:30 | NUR ---
IN ROOM FOR EXTENDED TIME FOR ASSESSMENT, VITALS, MEDS. PT REPORTS BEING "WET" AND WOULD LIKE "CLEANED UP". BED IS WET; PT AGREES TO STAND UP TO [facility] SO THAT STAFF CAN CLEAN THE BED. 700ML CLEAR YELLOW URINE VOIDED PLUS SMEAR OF STOOL. PT WIPED HERSELF. PRE STANDING, O2 TURNED UP TO 9L [place] NC TO PREOXYGENATE. PT RETURNED TO BED AND STATED THAT SHE WAS PROUD OF HERSELF FOR GETTING UP. PT REQUESTS PRN TYLENOL ALONG WITH "SOMETHING FOR COUGH". PRN ROBITUSSIN, TESSALON PERLES AND CEPACOL GIVEN PT REQUESTS "ALL OF IT". COUGH IS DRY AND NON PRODUCTIVE. UPPLER LOBES LUNGS SOUND CLEAR, RLL COARSE CRACKLES, LLL DIMINISHED. BOWEL TONES ACTIVE, CMS INTACT. PT TITRATED BACK TO 7L [place] NC. PT IS TALKATIVE AND IN A UPBEAT MOOD. FRESH WATER PROVIDED. IV MEDS HUNG. NO FURTHER CARE NEEDS AT THIS TIME. PT'S PERSONAL ITEMS CLOSE, CALL LIGHT WITHIN REACH.
--- NOTE | 2021-02-21 00:36 | NUR ---
ROUNDS: PT SLEEPING, SPO2 99% ON 7L, IV PUMP ALARMING; PROBLEM SOLVED. CALL LIGHT WITHIN REACH.
--- NOTE | 2021-02-21 01:40 | NUR ---
IN ROOM TO HEP LOCK LUMEN AFTER VANCO INFUSION. PT IS SLEEPING AND DOES NOT STIR WHILE THIS RN IN ROOM. SPO2 99% ON 7L NC. CALL LIGHT WITHIN REACH.
--- NOTE | 2021-02-21 03:35 | NUR ---
ROUNDS: PT APPEARS TO BE SLEEPING, NO APPARENT SIGNS OF DISTRESS. SPO2 100% ON 7LNC. CALL LIGHT WITHIN REACH.
--- NOTE | 2021-02-21 05:30 | NUR ---
IN ROOM FOR MORNING ASSESSMENT, MEDS, VITALS. PT WAS AWAKE NURSING STAFF ENTER THE ROOM. PT REPORTS TO HAVE SLEPT WELL. PT C/O PAIN 7/10 IN HER BACK. PRN TYLENOL ADMINISTERED ALONG WITH ROBITUSSIN, TESSALON AND CEPACOL PER PT REQUEST. SPO2 TITRATED TO 6L FROM 7L [place] NC. PT IS TOLERATING WELL; SPO2 96%. LUNG SOUNDS IMPROVED; DIM BUT CLEAR IN BASES. BOWEL TONES ACTIVE, CMS INTACT. PT DENIES FURTHER NEEDS. CALL LIGHT WITHIN REACH.
--- NOTE | 2021-02-21 07:44 | NUR ---
Report received from Angela LEY. Pt resting in bed with 6L NC in place, respirations even and unlabored. No needs identified at this time, will continue plan of care.
--- NOTE | 2021-02-21 08:30 | NUR ---
Per [address] Morel plan is for pt to work with PT/OT this week and then begin plan for dc. He request, dc plan not be discussed with pt as she becomes anxious as this causes her issues with her breathing. Plan remains for pt to dc to home when cleared medically.
--- NOTE | 2021-02-21 09:00 | NUR ---
Scheduled medications administered, assessment complete. Pt up in chair, window open and lights on, pt alert and oriented. Pt able to take pills with water with no difficulty. Currently on 6L NC with SPO2 at 99%. No SOB. Pt responds very well to positive affirmations. She is concerned that the "men on the hill across the field" who she feels could be "taking pictures of her" through the window. Pt reassured, window shade lowered slightly, pt agreeable to this. Pt c/o sore, chapped lips, chapstick provided. Hot tea given. No other needs at this time.
--- NOTE | 2021-02-21 10:15 | NUR ---
IV alarming, error resolved. PICC line flushed, all 3 lumens with blood return and flush well, heparin locked in unused port. Cefepime complete, IV Vanco infusing WNL. Pt reports no other needs, call light in reach. Sister in to visit.
--- NOTE | 2021-02-21 11:12 | NUR ---
Patient vitals, I&Os are complete. Call light is in reach and patient is watching t.v in chair.
--- NOTE | 2021-02-21 12:05 | NUR ---
PRN cough medicine administered by full charge bookkeeper per pt request
--- NOTE | 2021-02-21 12:15 | NUR ---
Rounded on patient who has IV alarming, distally occluded, error resolved. Pt states no other needs at this time, call light in reach.
--- NOTE | 2021-02-21 13:30 | NUR ---
Pt has visitors intermittently in room, continuing to monitor spo2
--- NOTE | 2021-02-21 14:44 | NUR ---
Patient vitals, I&Os are done. Patient is till eating lunch but the soup is too spicy and she would like some sour cream to tone down the spicyness. Call light is in reach. Patient is wondering if she can have peanut butter with celery on a 60 carb. diet. Patient did ana care to the commode from chair with physical therapy. There are no other requests at this time.
--- NOTE | 2021-02-21 15:30 | NUR ---
In patient's room to draw labs from PICC line. 2 lumens sluggish, require 15ml saline flush to each lumen, both do draw blood back. 3rd lumen WNL, labs drawn. IV ABX continued. Awaiting vanco trough to return. Pt takes oral nystatin mouthwash for sores on tongue. No other needs at this time.
--- NOTE | 2021-02-21 17:14 | NUR ---
Patient SBA, 1PA, FWW to commode at 8:00am. Patient went to commode via FWW, 1PA 10:00am, 550 ml. Hand hygiene was done. Patient seemed more confident about going to the commode from her chair, SBA, 1PA, 12:00pm, 550 ml, steady on feet. Hand hygiene was done. Patient went to commode from her chair, 1PA, with physical therapist, 300 ml, at 2:00pm. Hand hygiene was done. Patient via commode, 1PA, SBA, and she was steady on her feet. 600 ml of urine at 4:00pm. Patient is visiting with her .
--- NOTE | 2021-02-21 17:45 | NUR ---
Scheduled medications administered, pt requests to brush teeth, this RN assists. No other needs at this time.
--- NOTE | 2021-02-21 18:27 | NUR ---
IN PT ROOM TO ASSIST PT FROM CHAIR TO COMMODE AND THEN TO BED. PT VOIDED AND UNDERWEAR CHANGED. FUR BLOWER ASSISTED PT DURING TRANSFER WITH 1PA. PULSE OX ON PT DURING TRANSFER DUE TO HISTORY OF DESATURATION DURING TRANSFER. PT OXYGEN STABLE DURING TRANSFER TO COMMODE. PT OXYGEN LEVEL LOWERED TO 76% DURING TRANSFER TO BED. PT COACHED WITH BREATHING TECHNIQUE. PT REBOUNDED AFTER A FEW MINUTES. PT OXYGEN SATURATION CURRENTLY 92%. PT RESTING COMFORTABLY IN BED. CALL LIGHT WITHIN REACH AND BED RAILS UP FOR SAFETY. WILL CONTINUE TO MONITOR.
--- NOTE | 2021-02-21 18:48 | NUR ---
Patient vitals, I&Os are complete. Patient has not yet pooped today, but has voided every Q2 hours. Patient is resting and watching t.v. in bed. There are no other requests other than getting her a few plastic straws. The call light is in reach.
--- NOTE | 2021-02-21 19:15 | NUR ---
REPORT RECEIEVED FROM [facility]. pt RESTING IN BED, SPO2 96% WITH 5L OXYGEN BY NC IN PLACE. [employer] PROVIDING WARM BLANKET AT THIS TIME.
--- NOTE | 2021-02-21 22:09 | NUR ---
pt RESTING IN BED AWAKE. 5L OXYGEN BY NC IN PLACE, SPO2 WNL. INCONTINENT OF URINE. pt UP TO BS FOR 700 ML VOID AND BACK TO BED. LINENS CHANGED, ATTENDS IN PLACE. pt WITH LABORED BREATHING WITH TRANSFER. SPO2 93% AFTER REST WITH 5L OXYGEN BY NC. ASSESSMENT COMPLETE. pt WITH IS USE DEMONSTRATED 750 ML BEST EFFORT. SF PUDDING AND APPLESAUCE PROVIDED. PRN COUGH AND HEARTBURN MEDICATIONS ADMINISTERED. CALL LIGHT IN REACH.
--- NOTE | 2021-02-22 00:45 | NUR ---
pt RESTING IN BED WITH EYES CLOSED. SPO2 96% ON TELE CPOX MONITORING, 5L OXYGEN BY NC IN PLACE.
--- NOTE | 2021-02-22 02:50 | NUR ---
pt AWAKE, COMPLAINS OF 5/10 BACK PAIN. PRN TYLENOL ADMINISTERED REQUESTED. REPOSITIONED SELF IN BED WITH TRAPEZE. ASSESSMENT COMPLETE. 5L OXYGEN BY NC IN PLACE, SPO2 100%. LUNG SOUNDS COARSE RLL. CALL LIGHT IN REACH. NO ADDITIONAL NEEDS, pt REQUESTING TO REST, DENIES TOILETING NEEDS.
--- NOTE | 2021-02-22 06:51 | NUR ---
pt RESTING IN BED, AWAKENS TO VOICE. LABS DRAWN FROM PICC LINE. FLUSHED WNL PER POLICY. IV ANTIBIOTIC INFUSING WNL. pt RATES PAIN IN BACK 6-01/07. PRN PAIN MEDICATION ADMINISTERED. PRN COUGH MEDICATION ADMINISTERED REQUESTED. ICE WATER PROVIDED. INCONTINENT OF URINE. ATTENDS CHANGE. pt ABLE TO PULL DOWN OWN PANTS AND ASSIST WITH APPLICATION OF NEW ATTENDS. 5L OXYGEN BY NC IN PLACE, SPO2 93%. CALL LIGHT IN REACH.
--- NOTE | 2021-02-22 09:26 | NUR ---
pt resting in bed report she does not feel as well today, she agrees the day is early and we can make it better yet.
--- NOTE | 2021-02-22 09:30 | NUR ---
PT SITTING UP IN BED ALERT AND ORIENTED TO SELF AND SURROUNDINGS. SHE REPORTS SHE FEELS ANXIOUS, THIS HAS IMPROVED WITH BREATHING EXERCISES. O.T. IN TO WORK WITH PT. PT ASSURED THAT SHE IS STILL MAKING IMPROVEMENTS.
--- NOTE | 2021-02-22 13:44 | NUR ---
PT asked for prayer right away for the axiety she is experiencing. We had a short visit and I prayed for her and offered her a prayer shawl which she gratefully accepted. I also gave her a [employer] magazine. I prayed with her for peace and healing.
--- NOTE | 2021-02-22 14:00 | NUR ---
PATIENT RESTING IN CHAIR, ENJOYING THE SUNSHINE. VITALS AND I&OS CHARTED. ROOM TIDIED, GARBAGE EMPTIED.
--- NOTE | 2021-02-22 16:40 | NUR ---
PT UP IN RECLINER VISITING WITH HER MOTHER. PT MUCH LESS ANXIOUS, SMILING BREATHING SMOOTHLY, IV ABX RUNNING. SHE DOES NOT REPORT ANY PAIN AT THIS TIME.
--- NOTE | 2021-02-22 16:57 | NUR ---
No change in plan for dc. Sister, Alyse, came for visit today.
--- NOTE | 2021-02-22 17:07 | NUR ---
PT WAS VERY ANXIOUS BEGINNING OF SHIFT, SHE HAS WORKED WITH PHYSICAL THERAPY AND OCCUPATIONAL THERAPY TODAY, HAS BEEN UP IN RECLINER MOST OF SHIFT AND HAS BEEN USING COMMODE. INCREASE OXYGEN TO 9L OXYGEN WITH ACTIVITY THEN BACK TO 5L AT REST. SHE HAS HAD GOOD APPETITE TODAY, HER SISTER AND MOTHER HAVE BEEN IN TO VISIT, WELL PATIENTS SPOUSE IS POSSIBLY PLANNING TO VISIT YET THIS EVENING.
--- NOTE | 2021-02-22 18:24 | NUR ---
PATIENT AWAKE IN CHAIR, MOTHER IN ROOM, BRUSHING PATIENTS HAIR. VITALS AND I&OS CHARTED FRESH ICE WATER PROVIDED. CALL LIGHT IN REACH
--- NOTE | 2021-02-22 19:35 | NUR ---
REPORT RECEIVED FROM AV BOND. pt RESTING IN BED. 5L OXYGEN BY NC IN PLACE, SPO2 98% ON TELE CPOX. NO REQUESTS AT THIS TIME. FAMILY IN ROOM.
--- NOTE | 2021-02-22 22:07 | NUR ---
pt RESTING IN BED. PRN COUGH MEDICATION ADMINISTERED. pt RATES PAIN 4/10 IN BACK. DENIES NEED FOR MEDICATION. pt ANXIOUS, THERAPEUTIC COMMINICATION WITH pt. SPO2 WNL WITH 5L OXYGEN BY NC IN PLACE. CRACKLES AUSCULTATED BILATERALLY LOWER LOBES. PICC LINE FLUSHED WNL, BRISK BLOOD RETURN, 2 LUMENS HEPARIN LOCKED. IV ANTIBIOTIC INFUSING WNL. CALL LIGHT IN REACH. PUDDING AND YOGURT PROVIDED REQUESTED.
--- NOTE | 2021-02-23 00:19 | NUR ---
pt RESTING IN BED. LIGHTS OFF IN ROOM. SPO2 97% WITH 5L OXYGEN BY NC IN PLACE.
--- NOTE | 2021-02-23 02:03 | NUR ---
in to provide water refill and pt requesting tynanol for back pain, no further needs at this time
--- NOTE | 2021-02-23 02:12 | NUR ---
CALL LIGHT ANSWERED. pt C/O 12/08 BACK PAIN. PRN TYLENOL ADMINISTERED. pt LYING ON RIGHT SIDE. LUNG SOUNDS CLEAR WITH FINE CRACKLES BILATERALLY LOWER LOBES, pt WITH QUICK SHALLOW BREATHING DESPITE INSTRUCTIONS TO DEEP BREATHE. IS AT BEDSIDE. SPO2 95% WITH 5L OXYGEN BY NC IN PLACE. CALL LIGHT IN REACH. NO ADDITIONAL REQUESTS.
--- NOTE | 2021-02-23 04:25 | NUR ---
pt RESTING IN BED WITH EYES CLOSED. 5L OXYGEN BY NC IN PLACE, SPO2 97%.
--- NOTE | 2021-02-23 05:49 | NUR ---
CALL LIGHT ANSWERED. pt REQUESTING PRN COUGH MEDICATION. PRN MEDICATIONS ADMINISTERED. pt C/O 12/08 BACK PAIN, PRN TYLENOL ADMINISTERED FOR PAIN. pt REFUSING TO GET UP TO BSC AT THIS TIME STATES "I'M JUST TOO TIRED". ATTENDS CHANGED, INCONTINENT OF STOOL AND URINE. pt ABLE TO APPLY OWN ATTENDS, TURN SIDE TO SIDE. VSS. PO FLUIDS PROVIDED BY [facility]. CALL LIGHT IN REACH.
--- NOTE | 2021-02-23 09:11 | NUR ---
PT SITTING UP IN BED EATING BREAKFAST, NO REPORTS OF PAIN OR NAUSEA, NO DYSPNEA NOTED, ON 5L 97% N.C.
--- NOTE | 2021-02-23 10:00 | NUR ---
PT UP TO AMBULATE TO BATHROOM WITH CRALO OCCUPATIONAL THERAPIST. PT TOLERATED ACTIVITY WELL, STRONG STEADY GAIT. ALSO AV AND CARLO TALKED WITH PT ABOUT RELAXATION AND BREATHING TECHNIQUES.
--- NOTE | 2021-02-23 10:00 | NUR ---
Spoke with Flakita. She plans on dc to home with spouse when medically stable. She requests shower chair, bedside commode, and walker. Pt will also need 02. She states financial concern as she has been hospitalized for 30 days. Discussed I will refer her to SU, Abimbola Irvin, and she will contact her after dc to assist with resources. I will request orders and Rx for DME as possible plan for dc tomorrow. Pt states her mother will be staying with her when she discharges to home.
--- NOTE | 2021-02-23 13:15 | NUR ---
LEX DELIVERED, PATIENTS MOTHER IN ROOM TO VISIT. PT SITTING UP IN RECLINER EATING LUNCH WITH HER MOTHER.
--- NOTE | 2021-02-23 14:34 | NUR ---
Referral sent to SU [facility].
--- NOTE | 2021-02-23 15:16 | NUR ---
PT SITTING UP IN RECLINER, HER MOTHER IS MASSAGING HER FEET AND LOWER LEGS, PT SAID SHE DOES NOT WANT TO SHOWER TODAY. ENTER HER ROOM TO ROUND AND DISCUSS PLAN FOR DISCHARGE.
--- NOTE | 2021-02-23 16:48 | NUR ---
PT HAS BEEN UP BEAT AND PLEASANT, ANXIETY WELL MANAGED TODAY. SHE HAS NOT REPORTED ANY PAIN OR NAUSEA, SHE HAS BEEN UP IN THE RECLINER MOST OF SHIFT, SHE HAS AMBULATED IN ROOM WITH THERAPIES. SHE TOLERATES WELL, SHE DOES NEED TITRATED UP TO 8L ON OXYGEN WITH ACTIVITY FROM 5L AT REST. HER MOTHER HAS BEEN INROOM AND VERY ATTENTIVE MOST OF SHIFT
--- NOTE | 2021-02-23 19:20 | NUR ---
REPORT RECEIVED FROM VARUN LEY. INTRODUCTION AT BEDSIDE GIVEN. PATIENT IS CURRENTLY ON HIGH FLOW O2 AT 5LITERS, CURRENTLY RESTING IN STRETCHER WILL LIKE COUGH MEDICINE WITH NIGHT TIME MEDS. PATIENT POSSIBLY GOING HOME TOMORROW.
--- NOTE | 2021-02-23 21:15 | NUR ---
Tylenol 500mg po, tessalon padilla 100mg po and robitussing 10ml admin for reports of cough and generalized weakness.
--- NOTE | 2021-02-23 21:31 | NUR ---
IN ROOM TO GIVE NIGHTTIME MEDS, SEE EMAR. ASSISTED PATIENT CHANGING HER ATTENDS, SOILDE WITH URINE. PATIENT ASSESSMENT COMPLETE. PATIENT GIVEN TYLENOL FOR PAIN, CONFIRMS SHE DOES NOT HAVE A TYLENOL ALLERGY. PATIENT DENIES OTHER NEEDS AT THIS TIME. GIVEN REQUESTED COUGH MEDS. CALL LIGHT IN REACH.
--- NOTE | 2021-02-23 22:46 | NUR ---
PATIENT APPEARS TO BE SLEEPING, REMAONS ON PULSE OXIMETER, 96% ON 5 LITER NASAL CANNULA HIGH FLOW, RESPIRATIONS EVEN AND UNLABORED.
--- NOTE | 2021-02-24 01:06 | NUR ---
IN TO CHECK ON PATIENT. SHE IS LAYING ON HER BACK, RESPIRATIONS EVEN AND UNLABORED, CAN BE HEARD SNORING. REMIANS ON 5 LITERS HIGH FLOW O2 VIA NC
--- NOTE | 2021-02-24 02:14 | NUR ---
PT AWAKW ASKING FOR SOME COUGH MEDICINE, SEE EMAR GIVEN AT THIS TIME, ENCOURAGED TO DRINK WATER. DENIES OTHER NEEDS.
--- NOTE | 2021-02-24 03:51 | NUR ---
PATIENT REQUESTING SOMETHING MORE FOR COUGH, OFFERED PATIENT A LOZENGE IT IS TOO EARLY TO MEDICATE WITH THE OTHER MEDS SHE RECEIVED. PATIENT ALSO GIVEN WARM TEA PER HER REQUEST. CALL LIGHT IN REACH DENIES OTHER NEEDS. LAYING ON HER RIGHT SIDE.
--- NOTE | 2021-02-24 05:00 | NUR ---
IN ROOM TO DO PATIENT ASSESSMENT AND VITALS. PATIENT REPORTS SHE HAS VOIDED IN HER ATTENDS. THIS RN HAS CLEANED AND PUT DRY ATTENDS ON HE, PATIENT ASSISTED BY LIFTING BOTTOM UP. DENIES OTHER NEEDS. CALL LIGHT IN REACH.
--- NOTE | 2021-02-24 06:13 | NUR ---
PT CALLED REQUESTED COUGH MEDICATION, AND PAIN MED FOR HER BACK PAIN. VISITED ABOUT POTENTIAL OF GOING HOME, SHE IS EXCITED, BUT KNOWS THE ROAD AHEAD IS GOING TO BE TOUGH, BUT WILL HAVE SUPPORT TO HELP.
--- NOTE | 2021-02-24 06:44 | NUR ---
PATIENT HAS BEEN ABLE TO SLEEP SOME OF THE NIGHT, COMPLAINED OF BEING HOT AND TORE GOWN OFF. PATIENT NEEDED HER PRN MEDS FOR COUGH THROUGHOUT THE NIGHT. PATIENT ABLE TO ASSIST WITH ATTENDS CHANGES, HAD 2 LARGE VOIDS. REMAINS ON HIGH FLOW O2 AT 5 LITERS, MAINTAINS SATS IN 90'S.
--- NOTE | 2021-02-24 07:52 | NUR ---
Shift report received from AV Ornelas, pt resting in bed safely w/ call light in reach, watching TV. Pt denies any needs at this time.
--- NOTE | 2021-02-24 09:56 | NUR ---
SPOKE WITH NANCY IN RT WHO STATES PATIENT WILL NEED OXYGEN AT DISCHARGE AND A RESERVOIR CANULA WOULD WORK WELL AND WOULD LIKE DME ASKED IF THEY CAN PROVIDE THAT. CALLED [facility]. THEY STATE THEY WILL LET THE BAKE ROOM WORKER KNOW REGARDING CANULA ASK. THEY HAVE SENT DME REQUEST FOR SHOWER CHAIR, BSC AND WALKER TO INSURANCE. DISCUSSED I WILL SEND OXYGEN QUALIFIER AND RX SOON I HAVE ACCESS TO THEM.
--- NOTE | 2021-02-24 10:00 | NUR ---
PT SITTING UP IN BED, PT SHOWERED IND W/ SET UP. PT C/O LOWER BACK PAIN, LIDOCAINE PATCH PLACED PER PROVIDER ORDER. MORNING ASSESMENT COMPLETED AND SCHEDULED MEDS GIVEN, IV ABX INFUSING PER PROVIDER ORDERS.
--- NOTE | 2021-02-24 10:17 | NUR ---
SPOKE WITH PATIENT IN ROOM. UPDATED THAT DME HAS RECEIVED EQUIPMENT AND OXYGEN ORDERS. THESE ARE PENDING INSURANCE AT THIS TIME. SHE PLANS TO RETURN TO HER RESIDENCE WITH FAMILY AT DISCHARGE. STATES "GLAD" SHE GETS TO GO HOME. STAFF UPDATED.
[2021-02-24] MEDS ORDERED: QUETIAPINE FUMA50 MG PO (10:44)
[2021-02-24] MEDS ORDERED: AMLODIPINE BESYL5 MG PO (10:44)
[2021-02-24] MEDS ORDERED: BENZONATATE100 MG PO (10:46)
--- NOTE | 2021-02-24 10:46 | NUR ---
FAXED RX, RT QUALIFIER TO [facility] [phone]. CONFIRMATION RECEIVED AT 1021AM.
[2021-02-24] MEDS ORDERED: FAMOTIDINE20 MG PO (10:48)
[2021-02-24] MEDS ORDERED: METFORMIN HCL1000 MG PO (10:48)
[2021-02-24] MEDS ORDERED: STIMULANT LAXA1 EACH PO (10:48)
[2021-02-24] MEDS ORDERED: SEMGLEE100 UNIT/1 SUB-Q (10:49)
[2021-02-24] MEDS ORDERED: FREESTYLE LITE1 EAC1 TD (10:49)
[2021-02-24] MEDS ORDERED: INSULIN SYRING1 EA47 MISC (10:50)
[2021-02-24] MEDS ORDERED: FREESTYLE FREE1 EAC1 MISC (10:50)
[2021-02-24] MEDS ORDERED: MELATONIN3 MG PO (10:51)
[2021-02-24] MEDS ORDERED: GUAIFENESIN-CO118 ML PO (11:09)
--- NOTE | 2021-02-24 12:00 | NUR ---
Pt sitting up in bed eating lunch, IV abx completed. Pt is going to finish her lunch and call when she is ready for discharge instructions.
--- NOTE | 2021-02-24 14:00 | NUR ---
Discharge instructions given to pt and . Both verbalize understanding all questions answered. PICC line removed, no redness or swelling noted at the site gauze and pressure applied for 5 minutes, then wrapped w/ coban. Pt educated on post removal care. AV Hidalgo will help pt dress and escort her to the front lobby/car.
--- NOTE | 2021-02-24 14:23 | NUR ---
SAT AND VISITED WITH PATIENT FOR ABOUT 40 MINUTES REGARDING DISCHARGE. PATIENT IS APPREHENSIVE TO LEAVE MEDICAL STAFF. SHE WAS TEARY ON OCCASION. WE DISCUSSED HER STAY HERE, COVID, PLAN FOR F/U INCLUDING HOME HEALTH, AND COMMUNITY HEALTH WORKER VISIT. DISCUSSED THAT WE WILL GIVE HER THE NUMBER FOR THE NURSING STATION HERE SO SHE CAN CALL WITH QUESTIONS FROM HOME IF SHE NEEDS TO. DISCUSSED IT IS NORMAL TO BE HESITANT GOING HOME AFTER A LONG HOSPITALIZATION. DISCUSSED THAT ILLNESS LIKE THIS IS TRAUMATIC AND SHE MAY HAVE PROBLEMS COPING. DISCUSSED SHE CAN CALL HER INSURANCE AND ASK FOR COUNSELING SERVICES BY PHONE, THAT MOST INSURANCES HAVE THIS DUE TO COVID. SHE WAS VERY OPEN TO THIS. WE DISCUSSED THAT SHE WILL BE WEAK AND TIRED FOR SOME TIME YET. SHE IS LOOKING FORWARD TO BEING IN HER OWN BED AND WITH HER FAMILY. STRESSED TO HER THAT SHE CAN ALWAYS COME BACK IF SHE WORSENS. DISCUSSED THAT THERE ARE SERVICES AVAILABLE FOR COVID DISCHARGING PATIENTS AND OUR [facility] WILL HELP HER WITH ANY SERVICES SHE MAY QUALIFY FOR. PATIENT WAS MUCH MORE RELAXED AFTER. SHE SPOKE AT LENGTH ABOUT HOW SEJAL SHE WAS TO BE HERE AND THAT WE TOOK SUCH GREAT CARE OF HER. SHE ALSO SPOKE ABOUT SHE WANTED THE COVID VACCINE SOON SHE CAN GET IT. ENCOURAGED HER TO TALK WITH HER PCP ABOUT THIS, SHE CAN'T HAVE IT FOR A LITTLE BIT RIGHT AFTER THE ILLNESS. DISCUSSED THAT [facility] HAS DELIVERED HER OXYGEN AND WALKER. THAT INSURANCE HAS NOT AUTHORIZED THE BSC OR SHOWER CHAIR YET. DISCUSSED WHERE TO BUY THEM OR THAT THEY CAN BORROW THEM AT [facility]. SHE ASKED FOR THIS INFORMATION. ALL QUESTIONS ANSWERED. TOOK BROCHURE AND LOAN FORM FOR [facility] TO ROOM. DISCUSSED WITH HER . HE IS GOING TO GO DO THIS BEFORE HE TAKES HER HOME. STAFF WAS IN ROOM WITH THEM.
== END 2021-02-24 15:26 | disposition home health service (06) | DRG 177 ==
LOC: ED 15:48 → CCU 18:57 → MS 18:57 → CCU 01-24 09:00 → MS 02-19 16:00
PROVIDERS: ADMIT Student in an Organized Health Care Education/Training Program; ATTEND Student in an Organized Health Care Education/Training Program
PROC: 8E0ZXY6 Isolation (ICD-10-PCS; 2021-01-23)
PROC: 5A09357 Assistance with Respiratory Ventilation, Less than 24 Consecutive Hours, Continuous Positive Airway Pressure (ICD-10-PCS; principal; 2021-01-24)
PROC: 3E0333Z Introduction of Anti-inflammatory into Peripheral Vein, Percutaneous Approach (ICD-10-PCS; 2021-01-24)
PROC: XW033E5 Introduction of Remdesivir Anti-infective into Peripheral Vein, Percutaneous Approach, New Technology Group 5 (ICD-10-PCS; 2021-01-24)
PROC: 02HV33Z Insertion of Infusion Device into Superior Vena Cava, Percutaneous Approach (ICD-10-PCS; 2021-02-01)
DX: U07.1 COVID-19 (principal); J96.01 Acute respiratory failure with hypoxia; J15.9 Unspecified bacterial pneumonia; G93.41 Metabolic encephalopathy; J12.82 Pneumonia due to coronavirus disease 2019; E11.65 Type 2 diabetes mellitus with hyperglycemia; T38.0X5A Adverse effect of glucocorticoids and synthetic analogues, initial encounter; I10 Essential (primary) hypertension; E03.9 Hypothyroidism, unspecified; Z90.49 Acquired absence of other specified parts of digestive tract; Z98.51 Tubal ligation status; Z98.890 Other specified postprocedural states; Z88.6 Allergy status to analgesic agent; Z88.1 Allergy status to other antibiotic agents; Z88.8 Allergy status to other drugs, medicaments and biological substances; Z79.899 Other long term (current) drug therapy
CPT/HCPCS: 36569; 36600; 71045; 71260; 80048; 80053; 80202; 80500; 81001; 82553; 82803; 83605; 83735; 85007; 85025; 85651; 87040; 92507; 92523; 93306; 94640; 94660; 94667; 94668; 94760; 94761; 94799; 97110; 97162; 97166; 97530; 97535; 99285-25; A9270; C1751; J0456; J0692; J0696; J1100; J1650; J1815; J1940; J2060; J2270; J2405; J2920; J2997; J3370; J3475; J3480; J7050; J7060; J7121; J8540; Q0177; Q9967; U0003

== ENCOUNTER 2021-10-06 17:31 | Emergency (ER) | payer OTHER ==
[~2021-10-06] VITALS: Ht 165.1 cm; Wt 88.5 kg
[~2021-10-06 17:31] MED LIST changes: +AMLODIPINE BESYL5 MG PO; +BENZONATATE100 MG PO; +FAMOTIDINE20 MG PO; +FREESTYLE FREE1 EAC1 MISC; +FREESTYLE LITE1 EAC1 TD; +GUAIFENESIN-CO118 ML PO; +INSULIN SYRING1 EA47 MISC; +MELATONIN3 MG PO; +METFORMIN HCL1000 MG PO; +QUETIAPINE FUMA50 MG PO; +SEMGLEE100 UNIT/1 SUB-Q; +STIMULANT LAXA1 EACH PO
[2021-10-06] MEDS ORDERED: FLUOXETINE HCL10 M1 PO (17:42)
[2021-10-06] MEDS ORDERED: PREDNISONE20 MG PO (17:43)
[2021-10-06] MEDS ORDERED: SYMBICORT 16010.2 GM INH (17:43)
--- NOTE | 2021-10-08 14:23 | EKG ---
[facility] [address] [place] [address] Signed Normal sinus rhythm Normal ECG No previous ECGs available Confirmed by TRAE PETTIT MD ([id number]) on 10/08/2021 2:23:00 PM Electronically Signed By: TRAE PETTIT MD 10/08/21 1423 PATIENT NAME: VAZQUEZGALLITO V Electrocardiogram DATE OF : 64 PHYSICIAN: TRAE PETTIT MD REPORT #: [id number] REPORT IS CONFIDENTIAL AND NOT TO BE RELEASED WITHOUT AUTHORIZATION
== END 2021-10-06 20:22 | disposition home or self-care (01) ==
LOC: ED 17:31
DX: J20.9 Acute bronchitis, unspecified (principal); Z88.6 Allergy status to analgesic agent; Z88.8 Allergy status to other drugs, medicaments and biological substances; Z88.1 Allergy status to other antibiotic agents; Z79.899 Other long term (current) drug therapy; Z79.52 Long term (current) use of systemic steroids; Z20.822 Contact with and (suspected) exposure to COVID-19
CPT/HCPCS: 71045; 93005; 93010; 99285-25; C9803; U0003